=== PATIENT | male | born 1930 | race Caucasian/White ===

== ENCOUNTER 2016-12-19 20:00 | Inpatient (IN) ==
--- OUTSIDE RECORDS SUMMARY | 2016-12-19 20:08 | External Medical Summary ---
:1932 Author Organization [employer] Care Team Providers Name Role Phone Fab Vasquez Provider Role Unavailable Allergies No Known Allergies Problems Problem Type Condition Code Onset Dates Condition Status Problem Chronic pain syndrome G89.4 Active Problem Degenerative disc disease, lumbar M51.36 Active Problem Carotid stenosis, left I65.22 Active Problem Intermittent claudication 443.9 Active Medications No Known Medications Results No Known Results Summary Purpose eClinicalWorks Submission
--- OUTSIDE RECORDS SUMMARY | 2016-12-19 20:08 | External Medical Summary ---
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 302712367 prostatic hyperplasia with lower urinary tract symptoms Problem Degenerative disc M51.36 Active 26373025 disease, lumbar Problem Chronic pain G89.4 Active 233489396 syndrome Problem Carotid stenosis, I65.22 Active 577546173164977 left Problem Primary localized M16.10 Active 949635122 osteoarthrosis, pelvic region and thigh Problem 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 949354491 osteoarthritis of both lower legs Problem Anxiety F41.9 Active 94419944 Problem Lumbago with M54.41 Active 948905398 sciatica, right side Problem 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 Active 126007431 use of anticoagulant therapy Problem Seizure disorder G40.909 Active 426271700 ALLERGIES Substance Reaction Event Type Date Status losartan Unknown Drug Allergy Nov, Active lisinopril Unknown Drug Allergy Nov, Active morphine Unknown Drug Allergy Nov, Active sulfamethoxazole Unknown Drug Allergy Nov, Active Lipitor muscle weakness Drug Allergy Nov, Active SOCIAL HISTORY Never Assessed PLAN OF CARE Activity Details Follow Up 4 Weeks Reason: Pending Test Culture: Urine Pending Test X ray : Chest-PA/LAT Pending Test EKG-[facility] VITAL SIGNS Temperature 97.7 degrees Fahrenheit 2016-11-24 Weight 143.7 lbs 2016-11-24 Height 68 in 2016-11-24 BMI 21.85 kg/m2 2016-11-24 Blood pressure systolic 112 mm Hg 2016-11-24 Blood pressure diastolic 70 mm Hg 2016-11-24 MEDICATIONS Medication Instructions Dosage Frequency Start End Date Duration Status Date terazosin 2 mg orally once a 1 cap(s) Active day (at bedtime) Vitamin D3 5000 orally once a 1 cap(s) 24h Active intl units day [place] 325 mg-10 orally every 4 1 tab(s) 4h Nov, days Active mg hours 2016 Flexeril 10 mg orally three 1 tab(s) Active times a day prn loratadine 10 mg orally once a 1 tab(s) 24h 90 days Active day Aspir 81 81 mg orally once a 1 tab(s) 24h Active day omeprazole 20 mg orally once a 1 cap(s) 24h Active day finasteride 5 mg orally once a 1 tab(s) 24h Active day Vimpat 100 mg orally 2 times a 1 tab(s) 12h Active day Plavix 75 mg orally 1 tab(s) Active everyother day lutein 20 mg orally once a 1 cap(s) 24h Active day fluticasone 50 inhaled 2 times 1 puff(s) 12h Active mcg a day RESULTS No Results PROCEDURES Procedure Date Ordered Result Body Site Automated Hemogram-CBC w/Diff Nov 24, 2016 Comprehensive Metabolic Panel Nov 24, 2016 X-Ray Chest Nov 24, 2016 Urinalysis, Auto, w/o Scope Nov 24, 2016 Urine Culture/[place] Count Nov 24, 2016 Electrocardiogram, Complete Nov 24, 2016 IMMUNIZATIONS No Known Immunizations MEDICAL (GENERAL) HISTORY Type Description Date Medical History RHC/mammo/07/20 Surgical History colonoscopy 2 polypectomy repeat in 202111/28/[address] with spot on lungs and repeat CT in 1 year 2012 Surgical History left knee replaced 2007 Surgical History right knee replaced 2009
--- OUTSIDE RECORDS SUMMARY | 2016-12-19 20:08 | External Medical Summary ---
:1932 Author Organization [facility] Spec Address [address] [place] [address] Care Team Providers Name Role Phone Fab Vasquez Unavailable Unavailable PROBLEMS Type Condition ICD9-CM [id number] Onset Condition SNOMED Code Code Code Dates Status Assessment Infective N34.2 Feb, Active 985957720 urethritis 2016 Problem Chronic pain G89.4 Active 155647231 syndrome Problem Degenerative M51.36 Active 59044493 disc disease, lumbar Problem Anxiety F41.9 Active 76390209 Problem Lumbago with M54.41 Active 521280709 sciatica, right side Problem Impaired gait R26.89 Active 54688655 and mobility Problem Carotid I65.22 Active 834358092971430 stenosis, left Problem Other chronic G89.29 Active 86289416 pain Problem Benign N40.1 Active 803996565 non-nodular prostatic hyperplasia with lower urinary tract symptoms ALLERGIES Substance Reaction Event Type Date Status losartan Unknown Drug Allergy Feb, Active lisinopril Unknown Drug Allergy Feb, Active morphine Unknown Drug Allergy Feb, Active sulfamethoxazole Unknown Drug Allergy Feb, Active Lipitor muscle weakness Drug Allergy Feb, Active SOCIAL HISTORY No smoking Hx information available PLAN OF CARE VITAL SIGNS Temperature 97.5 degrees Fahrenheit 2016-02-25 Weight 141.4 lbs 2016-02-25 Height 68 in 2016-02-25 BMI 21.50 kg/m2 2016-02-25 Oximetry 93% RA 2016-02-25 Blood pressure systolic 146 mm Hg 2016-02-25 Blood pressure diastolic 90 mm Hg 2016-02-25 MEDICATIONS Medication Instructions Dosage Frequency Start End Date Duration Status Date [place] 325 mg-10 orally every 6 2 tab(s) 6h Active mg hours finasteride 5 mg orally once a 1 tab(s) 24h Active day atorvastatin 10 orally once a 1 tab(s) Active mg day (at bedtime) amlodipine 2.5 orally once a 1 tab(s) 24h Active mg day loratadine 10 mg orally once a 1 tab(s) 24h Active day fish oil OTC orally 2 times a 2 cap(s) 12h Active ethyl esters day 1000 mg Vitamin D3 5000 orally once a 1 cap(s) 24h Active intl units day Plavix 75 mg orally 1 tab(s) Active everyother day magnesium 250mg Active Potassium Active Chlorate, 500 g cefdinir 300 mg orally every 12 1 cap(s) 12h Feb, day(s) Active hours 2015 Aspir 81 81 mg orally once a 1 tab(s) 24h Active day Flexeril 10 mg orally three 1 tab(s) Active times a day prn omeprazole 20 mg orally once a 1 cap(s) 24h Active day terazosin 2 mg orally once a 1 cap(s) Active day (at bedtime) RESULTS No Results PROCEDURES Procedure Date Ordered Related Diagnosis Body Site Office/Outpatient Visit-Est Feb 25, 2016 IMMUNIZATIONS No Known Immunizations
--- OUTSIDE RECORDS SUMMARY | 2016-12-19 20:08 | External Medical Summary ---
:1932 Author Organization eClinicalWorks Care Team Providers Name Role Phone Fab Vasquez Provider Role Unavailable Allergies, Adverse Reactions, Alerts Substance Reaction Event Type Lipitor muscle weakness Drug Allergy Problems Problem Type Condition Code Onset Dates Condition Status Assessment Impaired gait and mobility R26.89 Active Assessment Right lumbosacral radiculopathy M54.17 Active Assessment Post-op pain G89.18 Active Problem Carotid stenosis, left I65.22 Active Problem Chronic pain syndrome G89.4 Active Problem Impaired gait and mobility R26.89 Active Assessment Spinal stenosis of lumbar region M48.06 Active Assessment Encounter for immunization Z23 Active Problem Degenerative disc disease, lumbar M51.36 Active Assessment Urinary frequency R35.0 Active Medications Medication Code System Code Instructions Start Date End Date Status Dosage [place] [address] 325 mg-10 mg orally 2 tab(s) every 6 hours Flexeril NDC 0 10 mg orally three 1 tab(s) times a day prn Procedures Procedure Coding System Code Date Flu Shot-Adult CPT-4 35485 Dec 16, 2015 Immunization Admin CPT-4 69703 Dec 16, 2015 Urinalysis, Auto, w/o Scope CPT-4 14062 Dec 16, 2015 Office/Outpatient Visit-Est CPT-4 23729 Dec 16, 2015 Vital Signs Date/Time: Dec 16, 2015 Temperature 98.4 F Blood Pressure Diastolic 68 mm Hg Blood Pressure Systolic 100 mm Hg BMI 24.39 Index Height 68 in Weight 160.4 lbs Pulse 106 /min Results Name Result Date Reference Range Unit Abnormality Flag Urinalysis Dip Only ----PROTEIN NEGATIVE 75585220 NEGATIVE ----BLOOD TRACE-INTACT [id number] NEGATIVE A ----KETONE NEGATIVE 97468779 NEGATIVE ----BILIRUBIN NEGATIVE 30296058 NEGATIVE ----GLUCOSE NEGATIVE 21381852 NEGATIVE ----LEUKOCYTES NEGATIVE [id number] NEGATIVE ----COLOR Yellow 67799362 ----NITRITE NEGATIVE 12131198 NEGATIVE ----APPEARANCE Clear [id number] CLEAR ----SPECIFIC GRAVITY 1.010 20151216 1.003 - 1.030 ----UROBILINOGEN 0.2 E.U./dL 20151216 0.2 - 1.0 ----PH 6.0 20151216 4.5 - 8.0 > UA MICROSCOPIC ----BACTERIA NONE SEEN 20151216 ----URBC None Seen 20151216 ----SQ. EPITHELIAL CELLS 0-3 / LPF 20151216 A ----UWBC 0-3 / HPF 20151216 Immunizations Vaccine Administration Date Flu Shot-Adult Dec 16, 2015 Summary Purpose eClinicalWorks Submission
--- OUTSIDE RECORDS SUMMARY | 2016-12-19 20:09 | External Medical Summary ---
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 Problem Intermittent claudication 443.9 Active Medications Medication Code Code Instructions Start End Date Status Dosage System Date omeprazole NDC 19729 20 mg orally 1 cap(s) once a day Aspirin Low Dose NDC 396301 81 mg orally 1 tab(s) once a day loratadine NDC 11691 10 mg orally Apr 30, 1 tab(s) once a day 2014 [place] NDC 24797 325 mg-10 mg Oct 21, 1 tab(s) orally every 12 2015 hours HCTZ NDC 58897 25 mg orally June 09, 03/07 pill once a day 2014 lutein NDC 546383 6 mg orally once 1 cap(s) a day amlodipine NDC 70629 2.5 mg orally 1 tab(s) once a day finasteride NDC 43894 5 mg orally once 1 tab(s) a day alprazolam NDC 05341 0.5 mg orally 1 Oct 14, 1 tab(s) times a day at 2013 HS potassium NDC 0 daily 1 gluconate terazosin NDC 11625 2MG orally once 1 cap(s) a day (at bedtime) Refresh Dry Eye NDC 547109 - in each eye 2 1 gtt Therapy times a day flunisolide NDC 54016 25 mcg/inh 2 puff(s) nasal intranasally 2 times a day magnesium NDC 0 250mg as directed Procedures Procedure Coding System Code Date Office/Outpatient Visit-Est CPT-4 93176 Feb 16, 2015 Vital Signs Date/Time: Feb 16, 2015 Temperature 98.1 F Blood Pressure Diastolic 66 mm Hg Blood Pressure Systolic 116 mm Hg BMI 22.99 Index Height 68 in Weight 151.2 lbs Pulse 56 /min Results No Known Results Summary Purpose eClinicalWorks Submission
--- OUTSIDE RECORDS SUMMARY | 2016-12-19 20:09 | External Medical Summary ---
:1932 Author Organization eClinicalWorks Care Team Providers Name Role Phone Fab Vasquez Provider Role Unavailable Allergies No Known Allergies Problems Problem Type Condition Code Onset Dates Condition Status Problem Intermittent claudication 443.9 Active Medications Medication Code System Code Instructions Start Date End Date Status Dosage alprazolam [facility] 26733 0.5 mg orally 1 Oct 14, 2013 1 tab(s) times a day at HS Results No Known Results Summary Purpose eClinicalWorks Submission
--- OUTSIDE RECORDS SUMMARY | 2016-12-19 20:09 | External Medical Summary ---
:1932 Author Organization [facility] Spec Address [address] [place] [address] Care Team Providers Name Role Phone Fab Vasquez Unavailable Unavailable PROBLEMS Type Condition ICD9-CM [id number] Onset Condition SNOMED Code Code Code Dates Status Problem Degenerative M51.36 Active 02394929 disc disease, lumbar Problem Carotid I65.22 Active 909927037226118 stenosis, left Problem Chronic pain G89.4 Active 877178753 syndrome Problem Seizure disorder G40.909 Active 111557465 Problem Anxiety F41.9 Active 50615405 Problem Benign N40.1 Active 577343566 non-nodular prostatic hyperplasia with lower urinary tract symptoms Problem Impaired gait R26.89 Active 83318333 and mobility Problem Lumbago with M54.41 Active 950742828 sciatica, right side Problem Other chronic G89.29 Active 73125275 pain ALLERGIES Unknown Allergies SOCIAL HISTORY No smoking Hx information available PLAN OF CARE VITAL SIGNS MEDICATIONS Unknown Medications RESULTS No Results PROCEDURES No Known procedures IMMUNIZATIONS No Known Immunizations
--- OUTSIDE RECORDS SUMMARY | 2016-12-19 20:09 | External Medical Summary ---
:1932 Author Organization [facility] Spec Address [address] [place] [address] Care Team Providers Name Role Phone Fab Vasquez Unavailable Unavailable PROBLEMS Type Condition ICD9-CM [id number] Onset Condition SNOMED Code Code Code Dates Status Problem Impaired gait and R26.89 Active 97997883 mobility Problem Other chronic pain G89.29 Active 47369332 Problem Benign non-nodular N40.1 Active 236477919 prostatic hyperplasia with lower urinary tract symptoms Problem Degenerative disc M51.36 Active 78245652 disease, lumbar Problem Chronic pain G89.4 Active 411476681 syndrome Problem Carotid stenosis, I65.22 Active 856011456641532 left Problem Primary localized M16.10 Active 184493723 osteoarthrosis, pelvic region and thigh Problem 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 114156445 osteoarthritis of both lower legs Problem Anxiety F41.9 Active 75782263 Problem Lumbago with M54.41 Active 118619929 sciatica, right side Problem 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 Active 739945040 use of anticoagulant therapy Problem Seizure disorder G40.909 Active 578372682 ALLERGIES No Information SOCIAL HISTORY Never Assessed PLAN OF CARE VITAL SIGNS MEDICATIONS Medication Instructions Dosage Frequency Start End Date Duration Status Date cefdinir 300 mg orally every 12 1 cap(s) 12h 25 Sep, 10 day(s) Active hours 2016 RESULTS No Results PROCEDURES No Known procedures IMMUNIZATIONS No Known Immunizations MEDICAL (GENERAL) HISTORY Type Description Date Medical History RHC/mammo/07/20 Surgical History colonoscopy 2 polypectomy repeat in 202111/28/[address] with spot on lungs and repeat CT in 1 year 2012 Surgical History left knee replaced 2007 Surgical History right knee replaced 2009
--- OUTSIDE RECORDS SUMMARY | 2016-12-19 20:09 | External Medical Summary ---
:1932 Author Organization [facility] Address [address] [place] [address] Care Team Providers Name Role Phone Marco A Laura Unavailable Unavailable PROBLEMS Type Condition ICD9-CM [id number] Onset Condition SNOMED Code Code Code Dates Status Problem Hypertension I10 Active 42868964 Problem S/P drug eluting Z95.5 Active 328628905 coronary stent placement Problem Jeff-tachy I49.5 Active 42928829 syndrome Problem Venous 459.81 Active 32588309 Insufficiency Problem Bradycardia 427.89 Active 87292390 Problem Dyslipidemia E78.4 Active 008835379 (high LDL; low HDL) Problem nursing home Z79.02 Active 686917157577081 (current) use of antithrombotics/a ntiplatelets Problem Long-term use of Z79.82 Active 048497341479735 aspirin therapy Problem Presence of Z95.0 Active 857044579 cardiac pacemaker Problem CAD (coronary I25.10 Active 86439544 artery disease) Problem Carotid disease, I77.9 Active 776946425 bilateral Problem History of CEA Z98.89 Active (carotid endarterectomy) ALLERGIES Unknown Allergies SOCIAL HISTORY No smoking Hx information available PLAN OF CARE VITAL SIGNS MEDICATIONS Unknown Medications RESULTS No Results PROCEDURES No Known procedures IMMUNIZATIONS No Known Immunizations
--- OUTSIDE RECORDS SUMMARY | 2016-12-19 20:09 | External Medical Summary ---
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
--- OUTSIDE RECORDS SUMMARY | 2016-12-19 20:09 | External Medical Summary ---
:1932 Author Organization [employer]ClinicalWorks Care Team Providers Name Role Phone Fab Vasquez Provider Role Unavailable Allergies No Known Allergies Problems Problem Type Condition Code Onset Dates Condition Status Problem Impaired gait and mobility R26.89 Active Problem Carotid stenosis, left I65.22 Active Problem Benign non-nodular prostatic N40.1 Active hyperplasia with lower urinary tract symptoms Problem Chronic pain syndrome G89.4 Active Problem Degenerative disc disease, lumbar M51.36 Active Medications No Known Medications Results No Known Results Summary Purpose eClinicalWorks Submission
--- OUTSIDE RECORDS SUMMARY | 2016-12-19 20:09 | External Medical Summary ---
:1932 Author Organization eClinicalWorks Care Team Providers Name Role Phone Fab Vasquez Provider Role Unavailable Allergies No Known Allergies Problems Problem Type Condition ICD-9 Code Onset Dates Condition Status Problem Intermittent claudication 443.9 Active Medications No Known Medications Results No Known Results Summary Purpose eClinicalWorks Submission
--- OUTSIDE RECORDS SUMMARY | 2016-12-19 20:09 | External Medical Summary ---
:1932 Author Organization [facility] Spec Address [address] [place] [address] Care Team Providers Name Role Phone Fab Vasquez Unavailable Unavailable PROBLEMS Type Condition ICD9-CM [id number] Onset Condition SNOMED Code Code Code Dates Status Problem Degenerative M51.36 Active 57139262 disc disease, lumbar Problem Carotid I65.22 Active 027602152051463 stenosis, left Problem Chronic pain G89.4 Active 295502498 syndrome Problem Seizure disorder G40.909 Active 945261158 Problem Anxiety F41.9 Active 28549362 Problem Benign N40.1 Active 162817662 non-nodular prostatic hyperplasia with lower urinary tract symptoms Problem Impaired gait R26.89 Active 93426926 and mobility Problem Lumbago with M54.41 Active 519168544 sciatica, right side Problem Other chronic G89.29 Active 64449418 pain ALLERGIES Substance Reaction Event Type Date Status losartan Unknown Drug Allergy Aug, Active lisinopril Unknown Drug Allergy Aug, Active morphine Unknown Drug Allergy Aug, Active sulfamethoxazole Unknown Drug Allergy Aug, Active Lipitor muscle weakness Drug Allergy Aug, Active SOCIAL HISTORY No smoking Hx information available PLAN OF CARE Activity Details Follow Up 3 Months Reason:null VITAL SIGNS Temperature 98.4 degrees Fahrenheit 2016-08-04 Weight 151.9 lbs 2016-08-04 Height 68 in 2016-08-04 BMI 23.09 kg/m2 2016-08-04 Blood pressure systolic 108 mm Hg 2016-08-04 Blood pressure diastolic 60 mm Hg 2016-08-04 MEDICATIONS Medication Instructions Dosage Frequency Start End Date Duration Status Date Aspir 81 81 mg orally once a 1 tab(s) 24h Active day finasteride 5 mg orally once a 1 tab(s) 24h Active day Plavix 75 mg orally 1 tab(s) Active everyother day atorvastatin 10 orally once a 1 tab(s) Active mg day (at bedtime) magnesium 250mg Active Keppra 500 mg orally 2 times a 1 tab(s) 12h 24 July, Active day 2016 loratadine 10 mg orally once a 1 tab(s) 24h 90 days Active day fish oil OTC orally 2 times a 2 cap(s) 12h Active ethyl esters 1000 day mg Vitamin D3 5000 orally once a 1 cap(s) 24h Active intl units day Potassium Active Chlorate, 500 g [place] 325 mg-10 orally every 6 2 tab(s) 6h Active mg hours omeprazole 20 mg orally once a 1 cap(s) 24h Active day Flexeril 10 mg orally three 1 tab(s) Active times a day prn terazosin 2 mg orally once a 1 cap(s) Active day (at bedtime) amlodipine 2.5 mg orally once a 1 tab(s) 24h Active day Ativan 1 mg orally 1 times a 1 tab(s) Nov, 15 days Active day at HS 2016 RESULTS No Results PROCEDURES Procedure Date Ordered Related Diagnosis Body Site Office/Outpatient Visit-Est August 04, 2016 IMMUNIZATIONS No Known Immunizations
--- OUTSIDE RECORDS SUMMARY | 2016-12-19 20:09 | External Medical Summary ---
:1932 Author Organization [facility] Care Team Providers Name Role Phone Marco [...] Medications Results No Known Results Summary Purpose [facility] Submission
--- OUTSIDE RECORDS SUMMARY | 2016-12-19 20:09 | External Medical Summary ---
[...] I65.22 Active Problem Intermittent claudication 443.9 Active Assessment Spinal stenosis of lumbosacral M48.07 Active region Medications Medication Code Code Instructions Start End Date Status Dosage System Date Percocet-10/325 NDC 66197 325 mg-10 mg September 15 tab(s) orally every 6 2015 hours atorvastatin NDC 73657 20 mg orally September 10, /2 tab(s) once a day (at 2016 bedtime) amlodipine NDC 50125 2.5 mg orally 1 tab(s) once a day donepezil-memant NDC 277314 10 mg-28 mg 1 cap(s) ine orally once a day omeprazole NDC 62813 20 mg orally 1 cap(s) once a day terazosin NDC 05446 2MG orally once 1 cap(s) a day (at bedtime) alprazolam NDC 04087 0.5 mg orally August 03, tab(s) BID 2015 finasteride NDC 57650 5 mg orally once 1 tab(s) a day magnesium NDC 0 250mg as directed Fish Oil NDC 19997 500 mg orally 2 2 cap(s) times a day Refresh Dry Eye NDC 906502 - in each eye 2 1 gtt Therapy times a day flunisolide NDC 71610 25 mcg/inh 2 puff(s) nasal intranasally 2 times a day Requip XL NDC 612628 1 mg orally one July 19 tab(s) in the am and 2015 at night [place] Blue NDC 27678 1% applied July 20 lanie Balanced topically 2 2015 Treatment times a week Aspirin Low Dose NDC 865919 81 mg orally 1 tab(s) once a day potassium NDC 0 daily 1 gluconate loratadine NDC 12515 10 mg orally Apr 30, 1 tab(s) once a day 2014 lutein NDC 551289 6 mg orally once 1 cap(s) a day Procedures Procedure Coding System Code Date Office/Outpatient Visit-Est CPT-4 94741 September 16, 2015 Vital Signs Date/Time: September 16, 2015 Temperature 98.3 F Blood Pressure Diastolic 74 mm Hg Blood Pressure Systolic 126 mm Hg BMI 23.63 Index Height 68 in Weight 155.4 lbs Pulse 94 /min Results No Known Results Summary Purpose eClinicalWorks Submission
--- OUTSIDE RECORDS SUMMARY | 2016-12-19 20:09 | External Medical Summary ---
:1932 Author Organization [facility] Address [address] [place] [address] Care Team Providers Name Role Phone Marco A Laura Unavailable Unavailable PROBLEMS Type Condition ICD9-CM [id number] Onset Condition SNOMED Code Code Code Dates Status Problem Hypertension I10 Active 93871256 Problem S/P drug eluting Z95.5 Active 019897503 coronary stent placement Problem Jeff-tachy I49.5 Active 64836440 syndrome Problem Venous 459.81 Active 23443965 Insufficiency Problem Bradycardia 427.89 Active 94740995 Problem Dyslipidemia E78.4 Active 844335077 (high LDL; low HDL) Problem [facility] Z79.02 Active 034351508645914 (current) use of antithrombotics/a ntiplatelets Problem Long-term use of Z79.82 Active 263143526039473 aspirin therapy Problem Presence of Z95.0 Active 308455585 cardiac pacemaker Problem CAD (coronary I25.10 Active 74530582 artery disease) Problem Carotid disease, I77.9 Active 654145603 bilateral Problem History of CEA Z98.89 Active (carotid endarterectomy) ALLERGIES Unknown Allergies SOCIAL HISTORY No smoking Hx information available PLAN OF CARE VITAL SIGNS MEDICATIONS Unknown Medications RESULTS No Results PROCEDURES No Known procedures IMMUNIZATIONS No Known Immunizations
--- OUTSIDE RECORDS SUMMARY | 2016-12-19 20:09 | External Medical Summary ---
:1932 Author Organization [facility] Address [address] [place] [address] Care Team Providers Name Role Phone Fab Vasquez Unavailable Unavailable PROBLEMS Type Condition ICD9-CM EIN38-NU Onset Condition SNOMED Code Code Code Dates Status Problem Impaired gait and R26.89 Active 38096956 mobility Problem Other chronic pain G89.29 Active 86860904 Problem Benign non-nodular N40.1 Active 405800002 prostatic hyperplasia with lower urinary tract symptoms Problem Degenerative disc M51.36 Active 14426762 disease, lumbar Problem Chronic pain G89.4 Active 839831201 syndrome Problem Carotid stenosis, I65.22 Active 404529386338582 left Problem 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
--- OUTSIDE RECORDS SUMMARY | 2016-12-19 20:09 | External Medical Summary ---
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 59286048 syndrome Problem Venous 459.81 Active 21736406 Insufficiency Problem Bradycardia 427.89 Active 69375932 Problem Dyslipidemia E78.4 Active 252361088 (high LDL; low HDL) 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
--- OUTSIDE RECORDS SUMMARY | 2016-12-19 20:09 | External Medical Summary ---
:1932 Author Organization eClinical[employer] Care Team Providers Name Role Phone Fab Vasquez Provider Role Unavailable Allergies No Known Allergies Problems No Known Problems Medications No Known Medications Results No Known Results Summary Purpose eClinicalWorks Submission
--- OUTSIDE RECORDS SUMMARY | 2016-12-19 20:09 | External Medical Summary ---
:1932 Author Organization [facility] Address [address] [place] [address] Care Team Providers Name Role Phone Fab Vasquez Unavailable Unavailable PROBLEMS Type Condition ICD9-CM [id number] Onset Condition SNOMED Code Code Code Dates Status Problem Degenerative M51.36 Active 31612403 disc disease, lumbar Problem Carotid I65.22 Active 437472195041892 stenosis, left Problem Chronic pain G89.4 Active 129610288 syndrome Problem Seizure disorder G40.909 Active 660409659 Problem Anxiety F41.9 Active 30458012 Problem Benign N40.1 Active 228366744 non-nodular prostatic hyperplasia with lower urinary tract symptoms Problem Impaired gait R26.89 Active 64810995 and mobility Problem Lumbago with M54.41 Active 799993316 sciatica, right side Problem Other chronic G89.29 Active 85828062 pain ALLERGIES Unknown Allergies SOCIAL HISTORY No smoking Hx information available PLAN OF CARE VITAL SIGNS MEDICATIONS Unknown Medications RESULTS No Results PROCEDURES No Known procedures IMMUNIZATIONS No Known Immunizations
--- OUTSIDE RECORDS SUMMARY | 2016-12-19 20:09 | External Medical Summary ---
:1932 Author Organization eClinicalWorks Care Team Providers Name Role Phone Fab Vasquez Provider Role Unavailable Allergies, Adverse Reactions, Alerts Substance Reaction Event Type Lipitor muscle weakness Drug Allergy Problems Problem Type Condition Code Onset Dates Condition Status Problem Chronic pain syndrome G89.4 Active Problem Degenerative disc disease, lumbar M51.36 Active Problem Carotid stenosis, left I65.22 Active Assessment Carotid stenosis, left I65.22 Active Assessment Lumbar stenosis M48.06 Active Problem Intermittent claudication 443.9 Active Assessment Jeff-tachy syndrome I49.5 Active Medications Medication Code Code Instructions Start End Date Status Dosage System Date Namenda XR NDC 353852 21 mg orally once May 05, 1 cap(s) a day 2015 Aricept NDC 6432 23 mg orally once May 27, 1 tab(s) a day (at 2016 bedtime) hydroxyzine NDC 60585 hydrochloride May 05, 1 tab(s) mg orally 4 times 2015 a day terazosin NDC 89720 2MG orally once a 1 cap(s) day (at bedtime) amlodipine NDC 68124 2.5 mg orally 1 tab(s) once a day Fish Oil NDC 44301 500 mg orally 2 2 cap(s) times a day Aspirin Low Dose NDC 469097 81 mg orally once 1 tab(s) a day loratadine NDC 48489 10MG orally once 1 tab(s) a day Percocet-10/325 NDC 03285 325 mg-10 mg June 18 tab(s) orally every 6 2015 hours magnesium NDC 0 250mg as directed finasteride NDC 40834 5 mg orally once 1 tab(s) a day Crestor NDC 49339 5 mg orally once 1 tab(s) a day (at bedtime) potassium NDC 0 daily 1 gluconate omeprazole NDC 62563 20 mg orally once 1 cap(s) a day lutein NDC 818684 6 mg orally once 1 cap(s) a day fentanyl NDC 05950 12 mcg/hr applied June 07, 1 PATCH topically every 2015 72 hours flunisolide NDC 82068 25 mcg/inh 2 puff(s) nasal intranasally 2 times a day loratadine NDC 57086 10 mg orally once Apr 30, 1 tab(s) a day 2014 atorvastatin NDC 32611 20 mg orally once May 27, 1 tab(s) a day (at 2016 bedtime) HCTZ NDC 59881 25 mg orally once June 09, 1/2 pill a day 2014 Refresh Dry Eye ND 502973 - in each eye 2 1 gtt Therapy times a day Procedures Procedure Coding System Code Date Office/Outpatient Visit-Est CPT-4 65160 June 19, 2015 Vital Signs Date/Time: June 19, 2015 Temperature 97.9 F Blood Pressure Diastolic 78 mm Hg Blood Pressure Systolic 112 mm Hg BMI 24.33 Index Height 68 in Weight 160.0 lbs Pulse 72 /min Results No Known Results Summary Purpose eClinicalWorks Submission
--- OUTSIDE RECORDS SUMMARY | 2016-12-19 20:09 | External Medical Summary ---
:1932 Author Organization [employer]Clinical[employer] Care Team Providers Name Role Phone Fab Vasquez Provider Role Unavailable Allergies No Known Allergies Problems No Known Problems Medications Medication Code System Code Instructions Start Date End Date Status Dosage alprazolam [facility] 70520 0.5 mg orally 1 Oct 14, 2013 Active 1 tab(s) times a day at HS Results No Known Results Summary Purpose eClinicalWorks Submission
--- OUTSIDE RECORDS SUMMARY | 2016-12-19 20:09 | External Medical Summary ---
:1932 Author Organization eClinicalWorks Care Team Providers Name Role Phone Marco A Laura Provider Role Unavailable Allergies No Known Allergies Problems Problem Type Condition Code Onset Dates Condition Status Problem Venous Insufficiency 459.81 Active Problem Dyslipidemia (high LDL; low HDL) E78.4 Active Problem Bradycardia 427.89 Active Problem History of CEA (carotid Z98.89 Active endarterectomy) Problem Presence of cardiac pacemaker Z95.0 Active Problem Carotid disease, bilateral I77.9 Active Problem Jeff-tachy syndrome I49.5 Active Problem Hypertension I10 Active Problem CAD (coronary artery disease) I25.10 Active Problem S/P drug eluting coronary stent Z95.5 Active placement Medications No Known Medications Results No Known Results Summary Purpose eClinicalWorks Submission
--- OUTSIDE RECORDS SUMMARY | 2016-12-19 20:09 | External Medical Summary | Summary of Care ---
:1932 Author Name Lakhwinder Jane M.D. Address [address] [place] [address] [place] [address] Care Team Providers Name Role Phone Lakhwinder Jane M.D. Unavailable Unavailable Fab Vasquez Unavailable Unavailable Functional Status Functional Status Health Issues Name Dates Details Functional status health issues are not documented Status: Cognitive Status Health Issues Name Dates Details Cognitive status health issues are not documented Status: Problems Name Dates Details Urinary retention (788.20, R33.9) Status: Active Benign prostatic hyperplasia with urinary obstruction and other lower urinary tract symptoms (600.21, N40.1) Status: Active Shingles (053.9, B02.9) Status: Active Medications Name Dates Details Loratadine 10 MG Oral Tablet TAKE 1 TABLET DAILY. Refills: 0 Cho M.D., [facility] 01-Jan-2016 Active Lutein 10 MG Oral Tablet Take 1 tablet daily Refills: 0 Cho M.D., [facility] 01-Jan-2016 Active Nitroglycerin 0.4 MG Sublingual Tablet Sublingual DISSOLVE 1 TABLET UNDER THE TONGUE NEEDED FOR CHEST PAIN. Refills: 0 Cho M.D., [facility] 01-Jan-2016 Active Omeprazole 10 MG Oral Capsule Delayed Release take one capsule before breakfast Refills: 0 Cho M.D., [facility] 01-Jan-2016 Active ROPINIRole HCl - 1 MG Oral Tablet TAKE 1 TABLET AT BEDTIME. Refills: 0 Cho M.D., [facility] 01-Jan-2016 Active Sennosides-Docusate Sodium 8.6-50 MG Oral Tablet TAKE 1 TABLET TWICE DAILY. Refills: 0 Cho M.D., [facility] 01-Jan-2016 Active Plavix 75 MG Oral Tablet TAKE 1 TABLET DAILY. Refills: 0 Cho M.D., [facility] 01-Jan-2016 Active Cyclobenzaprine HCl - 5 MG Oral Tablet Take one tablet PRN Refills: 0 Cho M.D., [facility] 01-Jan-2016 Active Finasteride 5 MG Oral Tablet TAKE 1 TABLET Bedtime Refills: 0 Cho M.D., [facility] 01-Jan-2016 Active Flonase Allergy Relief 50 MCG/ACT Nasal Suspension USE 1 TO 2 SPRAYS IN EACH NOSTRIL PRN Refills: 0 Cho M.D., [facility] 01-Jan-2016 Active Artificial Tears 1.4 % Ophthalmic Solution Refills: 0 Cho M.D., [facility] 01-Jan-2016 Active Probiotic Oral Capsule 1 TABLET ORAL DAILY Refills: 0 Cho M.D., [facility] 01-Jan-2016 Active AmLODIPine Besylate 2.5 MG Oral Tablet TAKE 1 TABLET DAILY. Refills: 0 Cho M.D., [facility] Start 01-Jan-2016 Active Aspirin Adult Low Dose 81 MG Oral Tablet Delayed Release TAKE 1 TABLET DAILY. Refills: 0 Cho M.D., [facility] Start 01-Jan-2016 Active Atorvastatin Calcium 10 MG Oral Tablet TAKE 1 TABLET AT BEDTIME. Refills: 0 Cho M.D., [facility] Start 01-Jan-2016 Active Vitamin D3 1000 UNIT Oral Capsule Take 5 tablets daily Refills: 0 Cho M.D., [facility] Start 01-Jan-2016 Active Allergies and Adverse Reactions Name Dates Details Bactrim DS TABS (Allergy) Status: Active lisinopril (Allergy) Status: Active losartan (Allergy) Status: Active morphine (Allergy) Status: Active Trimethoprim TABS (Allergy) Status: Active Procedures Procedure Dates Details History of Post Spinal Diskect Osteophytect Lumb Interspace Microdiscec Procedures not documented Immunization Name Dates Details Immunizations not documented Family History Brother Name Dates Details Family history of Kidney cancer, primary, with metastasis from kidney to other site (189.0, C64.9) Status: Active Social History Name Dates Details - Status: Smoking Status Name Dates Details Former smoker Vital Signs Date Test Result Details 01-Jan-2016 11:17 BP Systolic 130 mm[Hg] Status: Comments: Location: ; Position: BP Diastolic 69 mm[Hg] Status: Comments: Location: ; Position: Heart Rate 82 /min Status: Comments: Location: ; Height 70.5 in Status: Weight 162 lb Status: Body Mass Index Calculated 22.92 kg/m2 Status: Body Surface Area Calculated 1.92 m2 Status: Results Date Description Value Details 04-Jan-2016 13:09 URINE CULTURE [id number] Comments: [facility]: [place] [place], [address], Document Reviewer: Lakhwinder Boland D.O., MPHQuest Collection Date/Time: [id number] Results Received Date/Time: [id number] Reported Date /Time: [id number] performed at: [facility] [place], [address] [facility], [place], [address], Document Reviewer: Lakhwinder Boland D.O., MPHQuest Collection Date/Time: [id number] Results Received Date/Time: [id number] Reported Date/Time: [id number] CULTURE, URINE, ROUTINE SEE NOTE (Abnormal) Comments: CULTURE, URINE, ROUTINE MICRO NUMBER: [id number] TEST STATUS: FINAL SPECIMEN SOURCE : URINE, CATHETER SPECIMEN QUALITY: ADEQUATE RESULT: Greater than 100,000 CFU/mL of Coagulase negative staphylococcus, not S. saprophyticus Coag.neg.staph. IN T LISA CIPROFLOXACIN S <=0.5 GENTAMICIN S <=0.5 LEVOFLOXACIN S <=0.12 MOXIFLOXACIN S <=0.25 NITROFURANTOIN S & lt;=16 OXACILLIN S <=0.25 1 TETRACYCLINE S <=1 TRIMETHOPRIM/SULFA S <=10 VANCOMYCIN S 1S=Susceptible I=Intermediate R=[place] t *=Not TestedNR=Not Reported NN=See Therapy CommentsTHERAPY COMMENTS Note 1: Oxacillin-susceptible staphylococci are susceptible to other penicillinase-stable penicillins (e.g. Methicil unruly, Nafcillin), beta- lactam/beta-lactamase inhibitor combinations, and cephems with staphylococcal indications, including Cefazolin.[KS]----- Plan of Care Name Dates Details Planned Observations Planned Goals not documented Planned Encounters Appointment; Provider: Lakhwinder Jane M.D. On 03-Feb-2016 14:00 Instructions Name Dates Details Instructions not documented Encounters Appointment; Lakhwinder Jane M.D. On 01-Jan-2016 Encounter Diagnosis: Problem not documented 11:15
--- OUTSIDE RECORDS SUMMARY | 2016-12-19 20:09 | External Medical Summary ---
:1932 Author Organization [facility] Address [address] [place] [address] Care Team Providers Name Role Phone Fab Vasquez Unavailable Unavailable PROBLEMS Type Condition ICD9-CM [id number] Onset Condition SNOMED Code Code Code Dates Status Assessment Coronary artery I25.10 Mar, Active 5196404989332 disease 2017 involving picayune coronary artery of pic[place]une heart without angina pectoris Problem Chronic pain G89.4 Active 406948232 syndrome Problem Degenerative M51.36 Active 78159430 disc disease, lumbar Problem Anxiety F41.9 Active 58507136 Problem Lumbago with M54.41 Active 903888353 sciatica, right side Problem Impaired gait R26.89 Active 19201890 and mobility Problem Carotid I65.22 Active 907593266150889 stenosis, left Problem Other chronic G89.29 Active 34793737 pain Problem Benign N40.1 Active 658286687 non-nodular prostatic hyperplasia with lower urinary tract symptoms ALLERGIES Unknown Allergies SOCIAL HISTORY No smoking Hx information available PLAN OF CARE VITAL SIGNS MEDICATIONS Medication Instructions Dosage Frequency Start Date End Date Duration Status Ativan 1 mg orally 1 times a 1 tab(s) 27 Nov, 15 days Active day at HS 2016 RESULTS No Results PROCEDURES No Known procedures IMMUNIZATIONS No Known Immunizations
--- OUTSIDE RECORDS SUMMARY | 2016-12-19 20:10 | External Medical Summary | Summary of Care ---
:1932 Author Name Lakhwinder Jane M.D. Address [address] [place] [address] [place] [address] Care Team Providers Name Role Phone Lakhwinder [...] urinary tract symptoms (600.21, N40.1) Status: Active Medications Name Dates Details Medication not documented Allergies and Adverse Reactions Name Dates Details Allergy history not documented Status: Procedures Procedure Dates Details Procedures not documented Immunization Name Dates Details Immunizations not documented Family History Brother Name Dates Details Family history of Kidney cancer, primary, with metastasis from kidney to other site (189.0, C64.9) Status: Active Social History Smoking Status Name Dates Details Unknown if ever smoked Vital Signs Date Test Result Details No Known Vitals to report Results Date Description Value Details Results not documented Plan of Care Name Dates Details Planned Observations Planned Goals not documented Planned Encounters Appointment; Provider: Lakhwinder Jane M.D. On 08-Jan-2016 08:30 Appointment; Provider: Lakhwinder Jane M.D. On 25-Dec-2015 16:15 Instructions Name Dates Details Instructions not documented Encounters Appointment; Lakhwinder Jane M.D. On 25-Dec-2015 Encounter Diagnosis: Problem not documented 16:15
--- OUTSIDE RECORDS SUMMARY | 2016-12-19 20:10 | External Medical Summary ---
:1932 Author Organization eClinicalWorks Care Team Providers Name Role Phone Fab Vasquez Provider Role Unavailable Allergies No Known Allergies Problems Problem Type Condition ICD-9 Code Onset Dates Condition Status Problem Intermittent claudication 443.9 Active Medications Medication Code System Code Instructions Start Date End Date Status Dosage alprazolam [facility] [address] 0.5 mg orally 1 Oct 14, 2013 1 tab(s) times a day at Results No Known Results Summary Purpose eClinicalWorks Submission
--- OUTSIDE RECORDS SUMMARY | 2016-12-19 20:10 | External Medical Summary ---
:1932 Author Organization eClinicalWorks Care Team Providers Name Role Phone Fab Vasquez Provider Role Unavailable Allergies, Adverse Reactions, Alerts Substance Reaction Event Type Lipitor muscle weakness Drug Allergy Problems Problem Type Condition ICD-9 Code Onset Dates Condition Status Assessment Left shoulder pain 719.41 Active Problem Intermittent claudication 443.9 Active Medications Medication Code Code Instructions Start End Date Status Dosage System Date [place] NDC 95070 325 mg-10 mg Oct 21, 1 tab(s) orally every 12 2014 hours Refresh Dry Eye NDC 983205 - in each eye 2 1 gtt Therapy times a day HCTZ NDC 76188 25 mg orally June 09, 03/07 pill once a day 2014 lutein NDC 224371 6 mg orally once 1 cap(s) a day Aspirin Low Dose NDC 183653 81 mg orally 1 tab(s) once a day flunisolide NDC 24132 25 mcg/inh 2 puff(s) nasal intranasally 2 times a day omeprazole NDC 46273 20 mg orally 1 cap(s) once a day finasteride NDC 79807 5 mg orally once 1 tab(s) a day potassium NDC 0 daily 1 gluconate magnesium NDC 0 250mg as directed amlodipine NDC 13370 2.5 mg orally 1 tab(s) once a day terazosin NDC 63233 2MG orally once 1 cap(s) a day (at bedtime) alprazolam NDC 58785 0.5 mg orally 1 Oct 14, 1 tab(s) times a day at 2014 HS loratadine NDC 82420 10 mg orally Apr 30, 1 tab(s) once a day 2014 Procedures Procedure Coding System Code Date Office/Outpatient Visit-Est CPT-4 54939 Oct 21, 2014 X-Ray Exam of Shoulder CPT-4 43867 Oct 21, 2014 Vital Signs Date/Time: Oct 21, 2014 Temperature 97.8 F Blood Pressure Diastolic 60 mm Hg Blood Pressure Systolic 100 mm Hg BMI 22.62 Index Height 68 in Weight 148.8 lbs Pulse 56 /min Results No Known Results Summary Purpose eClinicalWorks Submission
--- OUTSIDE RECORDS SUMMARY | 2016-12-19 20:10 | External Medical Summary ---
[...] Problem Carotid stenosis, left I65.22 Active Assessment Nocturia R35.1 Active Assessment Primary insomnia F51.01 Active Problem Intermittent claudication 443.9 Active Assessment Coronary artery disease involving I25.10 Active venetie ira coronary artery of [place] ir[place] heart without angina pectoris Medications Medication Code System Code Instructions Start Date End Date Status Dosage Ativan NDC 3795 1 mg orally 1 times Nov 30, 1 tab(s) a day at 2016 Procedures Procedure Coding System Code Date Automated Hemogram-CBC w/Diff CPT-4 09469 Dec 01, 2015 Prothrombin Time CPT-4 11396 Dec 01, 2015 Urinalysis, Auto, w/o Scope CPT-4 09769 Dec 01, 2015 Office/Outpatient Visit-Est CPT-4 09652 Dec 01, 2015 VENIPUNCT, ROUTINE* CPT-4 15939 Dec 01, 2015 Comprehensive Metabolic Panel CPT-4 46850 Dec 01, 2015 Thromboplastin Time, Partial CPT-4 35392 Dec 01, 2015 Electrocardiogram, Complete CPT-4 95736 Dec 01, 2015 X-Ray Chest CPT-4 54818 Dec 01, 2015 Vital Signs Date/Time: Dec 01, 2015 Temperature 97.2 F Blood Pressure Diastolic 68 mm Hg Blood Pressure Systolic 118 mm Hg BMI 23.26 Index Height 68 in Weight 153 lbs Pulse 72 /min Results Name Result Date Reference Range Unit Abnormality Flag PT AND PTT ----aPTT 28 20151201 24-33 sec ----INR 1.0 20151201 0.8-1.2 ----Prothrombin Time 10.4 20151201 9.1-12.0 sec CMP - Comp. Metabolic Panel (14) ----ALK. PHOSPHATASE 76 20151201 50-136 mg/dL ----GLUCOSE 98 09769869 74-108 mg/dL ----CARBON DIOXIDE 30 13316310 21-32 mmol/L ----A/G RATIO 1.2 36413616 1.1-2.5 CALC ----CREATININE 1.31 [id number] 0.60-1.30 mg/dL H ----GLOBULIN 3.2 22012899 1.5-4.5 g/dL ----BUN 24 20151201 7-18 mg/dL H ----ALBUMIN 3.8 59492718 3.4-5.0 g/dL ----SODIUM 142 96356870 136-145 mmol/L ----TOTAL BILIRUBIN 0.50 02019470 0.10-1.00 mg/dL ----AST (SGOT) 20 20151201 15-37 U/L ----CHLORIDE 104 70687210 98-107 mmol/L ----ALT (SGPT) 19 20151201 12-78 U/L ----POTASSIUM 4.0 24831030 3.5-5.1 mmol/L ----TOTAL PROTEIN 7.0 19695008 6.4-8.2 g/dL ----BUN/CREAT RATIO 18.3 00474106 12.0-20.0 CALC ----CALCIUM 9.2 44731908 8.5-10.1 mg/dL Urinalysis Dip Only ----PROTEIN NEGATIVE 20151201 NEGATIVE ----BLOOD TRACE-INTACT 20151201 NEGATIVE A ----KETONE NEGATIVE 20151201 NEGATIVE ----BILIRUBIN NEGATIVE 20151201 NEGATIVE ----GLUCOSE NEGATIVE 20151201 NEGATIVE ----LEUKOCYTES NEGATIVE 20151201 NEGATIVE ----COLOR Yellow 20151201 ----NITRITE NEGATIVE 20151201 NEGATIVE ----APPEARANCE Clear 20151201 CLEAR ----SPECIFIC GRAVITY 1.020 84476193 1.003 - 1.030 ----UROBILINOGEN 0.2 E.U./dL 52116207 0.2 - 1.0 ----PH 6.0 98610076 4.5 - 8.0 CBC With Differential/Platelet ----MCHC 32.9 70191510 31.8-35.4 g/dL ----MCH 29.8 20389496 27.0-31.2 PG ----PLT 215 20151201 142-424 x10^3/UL ----RDW 14.8 61963730 11.6-14.8 % ----HCT 36.2 20151201 43.5-53.7 % L ----MCV 90.5 20151201 80.0-97.0 fL ----RBC 4.00 98982741 4.69-6.13 x10^6/UL L ----HGB 11.9 20151201 13.5-18.1 g/dL L ----WBC 4.8 64225507 4.6-10.2 x10^3/UL > UA MICROSCOPIC ----BACTERIA NONE SEEN 20151201 ----SQ. EPITHELIAL None Seen 20151201 CELLS ----URBC None Seen 20151201 ----UWBC None Seen 20151201 Summary Purpose eClinicalWorks Submission
--- OUTSIDE RECORDS SUMMARY | 2016-12-19 20:10 | External Medical Summary ---
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 Active 78442291 syndrome Problem Venous 459.81 Active 58560873 Insufficiency Problem Bradycardia 427.89 Active 89178911 Problem Dyslipidemia E78.4 Active 973146196 (high LDL; low HDL) 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
--- OUTSIDE RECORDS SUMMARY | 2016-12-19 20:10 | External Medical Summary ---
:1932 Author Organization [facility] Spec Address [address] [place] [address] Care Team Providers Name Role Phone Fab Vasquez Unavailable Unavailable PROBLEMS Type Condition ICD9-CM [id number] Onset Condition SNOMED Code Code Code Dates Status Problem Degenerative M51.36 Active 60911702 disc disease, lumbar Problem Carotid I65.22 Active 537546214427778 stenosis, left Problem Chronic pain G89.4 Active 568745855 syndrome Problem Seizure disorder G40.909 Active 377794833 Problem Anxiety F41.9 Active 70455524 Problem Benign N40.1 Active 991938123 non-nodular prostatic hyperplasia with lower urinary tract symptoms Problem Impaired gait R26.89 Active 61200492 and mobility Problem Lumbago with M54.41 Active 812800531 sciatica, right side Problem Other chronic G89.29 Active 12192172 pain ALLERGIES Unknown Allergies SOCIAL HISTORY No smoking Hx information available PLAN OF CARE VITAL SIGNS MEDICATIONS Medication Instructions Dosage Frequency Start Date End Date Duration Status Keppra 500 mg orally 2 times a 1 tab(s) 12h 01 Aug, 90 day(s) Active 2016 RESULTS No Results PROCEDURES No Known procedures IMMUNIZATIONS No Known Immunizations
--- OUTSIDE RECORDS SUMMARY | 2016-12-19 20:10 | External Medical Summary ---
[...] eluting coronary stent Z95.5 Active placement Medications Medication Code System Code Instructions Start Date End Date Status Dosage Lab Order NDC 0 Orders Nov 27, 2015 as directed Results No Known Results Summary Purpose eClinicalWorks Submission
--- OUTSIDE RECORDS SUMMARY | 2016-12-19 20:10 | External Medical Summary ---
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
--- OUTSIDE RECORDS SUMMARY | 2016-12-19 20:10 | External Medical Summary ---
:1932 Author Organization [employer]Clinical[employer] Care Team Providers Name Role Phone Fab Vasquez Provider Role Unavailable Allergies No Known Allergies Problems Problem Type Condition Code Onset Dates Condition Status Problem Intermittent claudication 443.9 Active Medications Medication Code System Code Instructions Start Date End Date Status Dosage alprazolam [facility] 36849 0.5 mg orally 1 Oct 14, 2013 1 tab(s) times a day at HS Results No Known Results Summary Purpose eClinicalWorks Submission
--- OUTSIDE RECORDS SUMMARY | 2016-12-19 20:10 | External Medical Summary ---
:1932 Author Organization [employer] Care Team Providers Name Role Phone Marco [...] Medications Results No Known Results Summary Purpose [employer] Data Submission
--- OUTSIDE RECORDS SUMMARY | 2016-12-19 20:10 | External Medical Summary ---
:1932 Author Organization [employer]ClinicalWorks Care Team Providers Name Role Phone Fab Vasquez Provider Role Unavailable Allergies No Known Allergies Problems No Known Problems Medications Medication Code System Code Instructions Start Date End Date Status Dosage HCTZ [facility] 56279 12.5 mg by mouthl Apr 08, 2014 1 pill once a day Results No Known Results Summary Purpose eClinicalWorks Submission
--- OUTSIDE RECORDS SUMMARY | 2016-12-19 20:10 | External Medical Summary ---
:1932 Author Organization [employer] Care Team Providers Name Role Phone Marco [...] Medications Results No Known Results Summary Purpose eClinical[employer]zish Submission
--- OUTSIDE RECORDS SUMMARY | 2016-12-19 20:10 | External Medical Summary ---
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
--- OUTSIDE RECORDS SUMMARY | 2016-12-19 20:10 | External Medical Summary ---
[...] Problem Carotid stenosis, left I65.22 Active Assessment Right lumbosacral radiculopathy M54.17 Active Problem Intermittent claudication 443.9 Active Assessment Spinal stenosis of lumbar region M48.06 Active Medications Medication Code Code Instructions Start End Date Status Dosage System Date Percocet-10/325 NDC 33564 325 mg-10 mg September 15 tab(s) orally every 6 2016 hours alprazolam NDC 81058 0.5 mg orally August 03 tab(s) BID 2015 amlodipine NDC 34786 2.5 mg orally 1 tab(s) once a day Selsun Blue NDC 73779 1% applied July 20 lanie Balanced topically 2 2015 Treatment times a week donepezil-memant NDC 341762 10 mg-28 mg 1 cap(s) ine orally once a day omeprazole NDC 46466 20 mg orally 1 cap(s) once a day loratadine NDC 84833 10MG orally once 1 tab(s) a day Requip XL NDC 288747 1 mg orally one July 19 tab(s) in the am and 2015 at night Fish Oil NDC 76867 500 mg orally 2 2 cap(s) times a day magnesium NDC 0 250mg as directed Aspirin Low Dose NDC 889338 81 mg orally 1 tab(s) once a day flunisolide NDC 19263 25 mcg/inh 2 puff(s) nasal intranasally 2 times a day atorvastatin NDC 11292 20 mg orally September 10/2 tab(s) once a day (at 2015 bedtime) terazosin NDC 08340 2MG orally once 1 cap(s) a day (at bedtime) Refresh Dry Eye NDC 942376 - in each eye 2 1 gtt Therapy times a day potassium NDC 0 daily 1 gluconate finasteride NDC 92980 5 mg orally once 1 tab(s) a day loratadine NDC 81597 10 mg orally Apr 30, 1 tab(s) once a day 2014 lutein NDC 737032 6 mg orally once 1 cap(s) a day Procedures Procedure Coding System Code Date Office/Outpatient Visit-Est CPT-4 81702 Nov 03, 2015 Vital Signs Date/Time: Nov 03, 2015 Temperature 98.6 F Blood Pressure Diastolic 64 mm Hg Blood Pressure Systolic 1126 mm Hg BMI 22.93 Index Height 68 in Weight 150.8 lbs Pulse 87 /min Results No Known Results Summary Purpose eClinicalWorks Submission
--- OUTSIDE RECORDS SUMMARY | 2016-12-19 20:10 | External Medical Summary ---
:1932 Author Organization [employer] Care Team Providers Name Role Phone Marco [...] Medications Results No Known Results Summary Purpose [employer] Submission
--- OUTSIDE RECORDS SUMMARY | 2016-12-19 20:10 | External Medical Summary ---
:1932 Author Organization [employer]ClinicalWorks Care Team Providers Name Role Phone Fab Vasquez Provider Role Unavailable Allergies, Adverse Reactions, Alerts Substance Reaction Event Type Lipitor muscle weakness Drug Allergy Problems Problem Type Condition Code Onset Dates Condition Status Assessment Intermittent claudication 443.9 Active Assessment LBP (low back pain) 724.2 Active Problem Intermittent claudication 443.9 Active Assessment Radicular pain 729.2 Active Medications Medication Code Code Instructions Start End Date Status Dosage System Date omeprazole NDC 35380 20 mg orally 1 cap(s) once a day amlodipine NDC 26077 2.5 mg orally 1 tab(s) once a day potassium NDC 0 daily 1 gluconate terazosin NDC 21015 2MG orally once June 24, 1 cap(s) a day (at 2014 bedtime) Jessie NDC 53274 325 mg-5 mg 1-2 tab(s) orally every 6 hours finasteride NDC 10911 5 mg orally once 1 tab(s) a day magnesium NDC 0 250mg as directed lutein NDC 470937 6 mg orally once 1 cap(s) a day Refresh Dry Eye NDC 642088 - in each eye 2 1 gtt Therapy times a day alprazolam NDC 76231 0.5 mg orally 1 Oct 14, 1 tab(s) times a day at 2013 HS loratadine NDC 57114 10 mg orally Apr 30, 1 tab(s) once a day 2014 flunisolide NDC 51367 25 mcg/inh 2 puff(s) nasal intranasally 2 times a day Plavix NDC 80310 75 mg orally 1/2 tab(s) once a day Fish Oil NDC 50492 1000 mg orally 3 1 cap(s) times a day HCTZ NDC 43027 25 mg orally June 09, 1/2 pill once a day 2014 Aspirin Low Dose NDC 114757 81 mg orally 1 tab(s) once a day Procedures Procedure Coding System Code Date Office/Outpatient Visit-Est CPT-4 90633 July 03, 2014 Vital Signs Date/Time: July 03, 2014 Temperature 97.7 F Blood Pressure Diastolic 60 mm Hg Blood Pressure Systolic 108 mm Hg BMI 23.06 Index Height 68 in Weight 151.7 lbs Pulse 54 /min Results No Known Results Summary Purpose eClinicalWorks Submission
--- OUTSIDE RECORDS SUMMARY | 2016-12-19 20:10 | External Medical Summary ---
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 44228643 syndrome Problem Venous 459.81 Active 82943958 Insufficiency Problem Bradycardia 427.89 Active 35887469 Problem Dyslipidemia E78.4 Active 561109743 (high LDL; low HDL) Problem detention Z79.02 Active 019595220485184 (current) use of antithrombotics/a ntiplatelets Problem Long-term use of Z79.82 Active 272959475479306 aspirin therapy Problem Presence of Z95.0 Active 319774880 cardiac pacemaker Problem CAD (coronary I25.10 Active 84692280 artery disease) Problem Carotid disease, I77.9 Active 801205164 bilateral Problem History of CEA Z98.89 Active (carotid endarterectomy) ALLERGIES Unknown Allergies SOCIAL HISTORY No smoking Hx information available PLAN OF CARE VITAL SIGNS MEDICATIONS Unknown Medications RESULTS No Results PROCEDURES No Known procedures IMMUNIZATIONS No Known Immunizations
--- OUTSIDE RECORDS SUMMARY | 2016-12-19 20:10 | External Medical Summary ---
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
--- OUTSIDE RECORDS SUMMARY | 2016-12-19 20:10 | External Medical Summary ---
[...] Start Date End Date Status Dosage alprazolam [facility] 53179 0.5 mg orally BID August 04, 2015 1 tab(s) Results No Known Results Summary Purpose eClinicalWorks Submission
--- OUTSIDE RECORDS SUMMARY | 2016-12-19 20:10 | External Medical Summary ---
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
--- OUTSIDE RECORDS SUMMARY | 2016-12-19 20:10 | External Medical Summary ---
:1932 Author Organization [facility] Spec Address [address] [place] [address] Care Team Providers Name Role Phone Fab Vasquez Unavailable Unavailable PROBLEMS Type Condition ICD9-CM [id number] Onset Condition SNOMED Code Code Code Dates Status Problem Impaired gait and R26.89 Active 57237337 mobility Problem Other chronic pain G89.29 Active 46169221 Problem Benign non-nodular N40.1 Active 217094420 prostatic hyperplasia with lower urinary tract symptoms Problem Degenerative disc M51.36 Active 17100128 disease, lumbar Problem Chronic pain G89.4 Active 892169704 syndrome Problem Carotid stenosis, I65.22 Active 677985146476481 left Problem 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
--- OUTSIDE RECORDS SUMMARY | 2016-12-19 20:10 | External Medical Summary ---
:1932 Author Organization [facility] Spec Address [address] [place] [address] Care Team Providers Name Role Phone Fab Vasquez Unavailable Unavailable PROBLEMS Type Condition ICD9-CM [id number] Onset Condition SNOMED Code Code Code Dates Status Problem Degenerative M51.36 Active 63126591 disc disease, lumbar Problem Carotid I65.22 Active 088558132492393 stenosis, left Problem Chronic pain G89.4 Active 665594984 syndrome Assessment Seizure disorder G40.909 18 July, Active 811054197 2016 Problem Seizure disorder G40.909 Active 572574175 Problem Anxiety F41.9 Active 66709453 Problem Benign N40.1 Active 535225351 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
--- OUTSIDE RECORDS SUMMARY | 2016-12-19 20:11 | External Medical Summary | Summary of Care ---
:1932 Author Name Lakhwinder Jane M.D. Address [address] [place] [address] [place] [address] Care Team Providers Name Role Phone Lakhwinder [...] 1 TABLET DAILY. Refills: 0 Cho M.D., [facility] 01-Jan-2016 Active Lutein 10 MG Oral Tablet Take 1 tablet daily Refills: 0 Cho M.D., [facility] 01-Jan-2016 Active Nitroglycerin 0.4 MG Sublingual Tablet Sublingual DISSOLVE 1 TABLET UNDER THE TONGUE NEEDED FOR CHEST PAIN. Refills: 0 Cho M.D., [facility] 01-Jan-2016 Active Omeprazole 10 MG Oral Capsule Delayed Release take one capsule before breakfast Refills: 0 Cho M.D., [facility] 01-Jan-2016 Active ROPINIRole HCl - 1 MG Oral Tablet TAKE 1 TABLET AT BEDTIME. Refills: 0 Cho M.D., [facility] 01-Jan-2016 Active Sennosides-Docusate Sodium 8.6-50 MG Oral Tablet TAKE 1 TABLET TWICE DAILY. Refills: 0 Cho M.D., [facility] 01-Jan-2016 Active Plavix 75 MG Oral Tablet TAKE 1 TABLET DAILY. Refills: 0 Cho M.D., [facility] 01-Jan-2016 Active Cyclobenzaprine HCl - 5 MG Oral Tablet Take one tablet PRN Refills: 0 Cho M.D., [facility] 01-Jan-2016 Active Finasteride 5 MG Oral Tablet TAKE 1 TABLET Bedtime Refills: 0 Cho M.D., [facility] 01-Jan-2016 Active Flonase Allergy Relief 50 MCG/ACT [...] Post Spinal Diskect Osteophytect Lumb Interspace Microdiscec URINE CULTURE [id number] Ordered: 01-Jan-2016 Immunization Name Dates Details Immunizations not documented [...] m2 Status: Results Date Description Value Details Results not documented Plan of Care Name Dates Details Planned Observations Planned Goals not documented Planned Encounters Appointment; Provider: Lakhwinder Jane M.D. On 03-Feb-2016 14:00 Interventions Provided Labs/Procedures/ImagingURINE CULTURE [id number]; To be Done: 01 Jan 2016 Instructions Name Dates Details Instructions not documented Encounters Appointment; Lakhwinder Jane M.D. On 01-Jan-2016 Encounter Diagnosis: Problem not documented 11:15
--- OUTSIDE RECORDS SUMMARY | 2016-12-19 20:11 | External Medical Summary ---
:1932 Author Organization [facility] Spec Address [address] [place] [address] Care Team Providers Name Role Phone Fab Vasquez Unavailable Unavailable PROBLEMS Type Condition ICD9-CM [id number] Onset Condition SNOMED Code Code Code Dates Status Problem Chronic pain G89.4 Active 909294382 syndrome Problem Degenerative M51.36 Active 81278410 disc disease, lumbar Problem Anxiety F41.9 Active 71872804 Problem Lumbago with M54.41 Active 155754466 sciatica, right side Problem Impaired gait R26.89 Active 51213215 and mobility Problem Carotid I65.22 Active 139524485464229 stenosis, left Problem Other chronic G89.29 Active 48917957 pain Problem Benign N40.1 Active 410131244 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
--- OUTSIDE RECORDS SUMMARY | 2016-12-19 20:11 | External Medical Summary ---
:1932 Author Organization [employer] Care Team Providers Name Role Phone Fab Vasquez Provider Role Unavailable Allergies No Known Allergies Problems Problem Type Condition Code Onset Dates Condition Status Problem Intermittent claudication 443.9 Active Medications Medication Code System Code Instructions Start Date End Date Status Dosage alprazolam [facility] 41911 0.5 mg orally 1 Oct 14, 2013 1 tab(s) times a day at HS Results No Known Results Summary Purpose eClinicalWorks Submission
--- OUTSIDE RECORDS SUMMARY | 2016-12-19 20:11 | External Medical Summary ---
:1932 Author Organization [employer]ClinicalWorks Care Team Providers Name Role Phone Fab Vasquez Provider Role Unavailable Allergies, Adverse Reactions, Alerts Substance Reaction Event Type Lipitor muscle weakness Drug Allergy Problems Problem Type Condition ICD-9 Code Onset Dates Condition Status Assessment LBP (low back pain) 724.2 Active Problem Intermittent claudication 443.9 Active Medications Medication Code Code Instructions Start End Date Status Dosage System Date HCTZ NDC 28767 25 mg orally June 09, 1/2 pill once a day 2014 finasteride NDC 95857 5 mg orally once 1 tab(s) a day potassium NDC 0 daily 1 gluconate Aspirin Low Dose NDC 062793 81 mg orally 1 tab(s) once a day terazosin NDC 18548 2MG orally once June 24, 1 cap(s) a day (at 2014 bedtime) lutein NDC 280207 6 mg orally once 1 cap(s) a day omeprazole NDC 95799 20 mg orally 1 cap(s) once a day Plavix NDC 18769 75 mg orally 1/2 tab(s) once a day magnesium NDC 0 250mg as directed flunisolide NDC 44446 25 mcg/inh 2 puff(s) nasal intranasally 2 times a day Refresh Dry Eye NDC 879767 - in each eye 2 1 gtt Therapy times a day alprazolam NDC 99681 0.5 mg orally 1 Oct 14, 1 tab(s) times a day at 2013 HS [place] NDC 55079 325 mg-10 mg September 24, tab(s) orally every 12 2015 hours [place] NDC 44280 325 mg-5 mg 1-2 tab(s) orally every 6 hours amlodipine NDC 67409 2.5 mg orally 1 tab(s) once a day loratadine NDC 85225 10 mg orally Apr 30, 1 tab(s) once a day 2014 Fish Oil NDC 82549 1000 mg orally 3 1 cap(s) times a day Procedures Procedure Coding System Code Date X-Ray Exam of Lower Spine CPT-4 88388 September 24, 2014 Office/Outpatient Visit-Est CPT-4 17317 September 24, 2014 Basic Metabolic Panel CPT-4 28811 September 24, 2014 Vital Signs Date/Time: September 24, 2014 Temperature 97.8 F Blood Pressure Diastolic 66 mm Hg Blood Pressure Systolic 100 mm Hg BMI 22.62 Index Height 68 in Weight 148.8 lbs Pulse 51 /min Results No Known Results Summary Purpose eClinicalWorks Submission
--- OUTSIDE RECORDS SUMMARY | 2016-12-19 20:11 | External Medical Summary ---
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
--- OUTSIDE RECORDS SUMMARY | 2016-12-19 20:11 | External Medical Summary ---
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
--- OUTSIDE RECORDS SUMMARY | 2016-12-19 20:11 | External Medical Summary | Referral Summary ---
:1930 Author Organization [facility] Address [address] [place] [address] Care Team Providers Name Role Phone Fab Vasquez Primary Care Physician Encounter [facility] [phone] Date(s): 05/24/15 - 05/24/15 [facility] [address] [place] [address] [place] [phone] Discharge Diagnosis: Branch retinal artery occlusion Discharge Disposition: 01-Home or Self Care Attending Physician: Sergio Lopez MD Admitting Physician: Sergio Lopez MD Vital Signs Most recent to oldest [Reference Range]: 1 Temperature Oral [35.8-37.3 degC] 36.5 degC (05/24/15 4:30 PM) Peripheral Pulse Rate [60-100 bpm] 53 bpm *LOW* (05/24/15 6:30 PM) Respiratory Rate [14-20 br/min] 20 br/min (05/24/15 6:30 PM) Blood Pressure [90-140/60-90 mmHg] 159/88 mmHg *HI* (05/24/15 6:30 PM) SpO2 98 % (05/24/15 6:30 PM) Problem List Condition Effective Dates Status Health Status Informant Anxiety state (finding)(Confirmed) Active Backache (finding)(Confirmed) Active Benign essential hypertension Active (disorder)(Confirmed) Unspecified Constipation(Confirmed) Active Coronary arteriosclerosis Active (disorder)(Confirmed) Coronary Atheroscl Unspec Active Vessel(Confirmed)1 serum testosterone -485(Confirmed) 06/14/06 Active Diverticulosis(Confirmed) Active Gastroesophageal reflux disease Active (disorder)(Confirmed) Unspecified glaucoma(Confirmed) 2012 Active hx of urinary retention(Confirmed) Active Lung nodule, followed with lisy [address](Confirmed) Myalgia and myositis, 2012 Active unspecified(Confirmed) Osteoarthrosis Spec Sites(Confirmed) Active Pneumonia Organism 1998 Active Unspecified(Confirmed) Pure hypercholesterolemia Active (disorder)(Confirmed) RLS(Confirmed) Active 1--- Hx 3 stents in Coronary ateries in 2000 [place]. Cardiac Cath~[address] Laura reportedly 57, medical mamagement. Allergies, Adverse Reactions, Alerts Substance Reaction Severity Status lisinopril COUGH Active sulfamethoxazole RASH Active trimethoprim RASH Active Medications ALPRAZolam 0.5 mg oral tablet take 1 tablet, Oral, very sparingly for anxiety attacks. May cause drowsiness. no more htan one per 24 hours. Start Date: 04/14/15 Status: OrderedamLODIPine 5 mg oral tablet take 1 tablet, Oral, Daily Start Date: 04/14/15 Status: Orderedaspirin 81 mg oral delayed release tablet take 1 tablet, Oral, Daily Start Date: 04/14/15 Status: Orderedatorvastatin 40 mg oral tablet take 0.5 Tablet, Oral, Daily Start Date: 04/14/15 Status: Orderedfinasteride 5 mg oral tablet take 1 tablet, Oral, Daily Start Date: 04/14/15 Status: OrderedFish Oil 1000 mg oral capsule take 1 by, Oral, Daily Start Date: 04/14/15 Status: Orderedflunisolide 25 mcg/inh nasal spray spray 2 spray, Nasal, BID, flunisolide 25 mcg (0.025 %) Nasal [place] by intranasal route in each nostril. Start Date: 04/14/15 Status: Orderedhydrochlorothiazide 12.5 mg oral tablet take 1 tablet, Oral, Daily Start Date: 04/14/15 Status: Orderedloratadine 10 mg oral tablet Take 1 tablet, Oral, Daily, by mouth Start Date: 04/14/15 Status: Orderedlutein 6 mg oral capsule take 1 by, Oral, Daily Start Date: 04/14/15 Status: Orderednitroglycerin 0.[address] 1 tablet, SubLingual, FOR CHEST PAIN MAY REPEAT IN 5 MIN. Start Date: 04/14/15 Status: Orderedomeprazole 20 mg oral delayed release capsule take 1 capsule, Oral, Daily, before a meal. Start Date: 04/14/15 Status: Orderedterazosin 2 mg oral capsule TAKE ONE, Oral, Bedtime (once a day), BY MOUTH Start Date: 04/14/15 Status: Ordered Results Hematology Most recent to oldest [Reference Range]: 1 WBC [4.8-10.8 10*3/uL] 7.0 10*3/uL (05/24/15 4:47 PM) RBC [4.60-6.20] 4.43 *LOW* (05/24/15 4:47 PM) Hgb [14.0-18.0 gm/dL] 13.3 gm/dL *LOW* (05/24/15 4:47 PM) Hct [42.0-52.0 %] 40.9 % *LOW* (05/24/15 4:47 PM) MCV [82.0-99.0 fL] 92.3 fL (05/24/15 4:47 PM) MCH [27.0-32.0 pg] 30.0 pg (05/24/15 4:47 PM) MCHC [32.0-36.0 gm/dL] 32.5 gm/dL (05/24/15 4:47 PM) RDW [11.5-14.5 %] 14.5 % (05/24/15 4:47 PM) Platelet [150-400 10*3/uL] 193 10*3/uL (05/24/15 4:47 PM) MPV [9.4-12.3 fL] 9.3 fL *LOW* (05/24/15 4:47 PM) Immature Granulocytes [0.0-1.0 %] 0.1 % (05/24/15 4:47 PM) Neutrophils [51-75 %] 60 % (05/24/15 4:47 PM) Lymphocytes [20-46 %] 33 % (05/24/15 4:47 PM) Monocytes [4-11 %] 5 % (05/24/15 4:47 PM) Eosinophils [0-4 %] 2 % (05/24/15 4:47 PM) Basophils [0-2 %] 0 % (05/24/15 4:47 PM) Neutro Absolute [1.90-7.00 10*3] 4.15 10*3 (05/24/15 4:47 PM) Lymph Absolute [0.80-3.30 10*3] 2.30 10*3 (05/24/15 4:47 PM) [place] Absolute [0.30-1.00 10*3] 0.36 10*3 (05/24/15 4:47 PM) Eos Absolute [0.00-0.50 10*3] 0.13 10*3 (05/24/15 4:47 PM) Baso Absolute [0.00-0.20 10*3] 0.01 10*3 (05/24/15 4:47 PM) Nucleated RBC Automated [0 /100 WBC] 0.0 /100 WBC (05/24/15 4:47 PM) Chemistry Most recent to oldest [Reference Range]: 1 Sodium Lvl [136-144 mEq/L] 137 mEq/L (05/24/15 4:47 PM) Potassium Lvl [3.6-5.1 mEq/L] 3.2 mEq/L *LOW* (05/24/15 4:47 PM) Chloride [99-109 mEq/L] 101 mEq/L (05/24/15 4:47 PM) CO2 [22-32 mEq/L] 28 mEq/L (05/24/15 4:47 PM) AGAP [3-20] 8 (05/24/15 4:47 PM) BUN [4-20 mg/dL] 21 mg/dL *HI* (05/24/15 4:47 PM) Glucose Lvl [70-100 mg/dL] 140 mg/dL *HI* (05/24/15 4:47 PM) Creatinine Lvl [0.64-1.27 mg/dL] 1.23 mg/dL (05/24/15 4:47 PM) eGFR [>60] 56 1 *ABN* (05/24/15 4:47 PM) Calcium Lvl [8.6-10.0 mg/dL] 8.9 mg/dL (05/24/15 4:47 PM) Albumin Lvl [3.5-4.8 gm/dL] 3.4 gm/dL *LOW* (05/24/15 4:47 PM) Total Protein [6.1-7.9 gm/dL] 6.6 gm/dL (05/24/15 4:47 PM) Globulin [1.9-4.3 gm/dL] 3.2 gm/dL (05/24/15 4:47 PM) ALT [17-63 U/L] 24 U/L (05/24/15 4:47 PM) AST [15-41 U/L] 28 U/L (05/24/15 4:47 PM) Alk Phos [26-104 U/L] 51 U/L (05/24/15 4:47 PM) Bili Total [0.2-1.2 mg/dL] 0.6 mg/dL 2 (05/24/15 4:47 PM) Sodium Venous [136-144 mEq/L] 138 mEq/L (05/24/15 4:54 PM) Potassium Venous [3.6-5.1 mEq/L] 3.2 mEq/L 3 *LOW* (05/24/15 4:54 PM) Calcium Ionized Venous [1.19-1.41 mmol/L] 1.11 mmol/L *LOW* (05/24/15 4:54 PM) Total CO2 Venous [25-29 mEq/L] 25 mEq/L (05/24/15 4:54 PM) HGB Venous NPT [14.0-16.0 gm/dL] 14.3 gm/dL (05/24/15 4:54 PM) HCT Venous [42.0-52.0 %] 42.0 % (05/24/15 4:54 PM) Glucose Venous [70-100 mg/dL] 137 mg/dL *HI* (05/24/15 4:54 PM) BUN Venous [4-20] 23 *HI* (05/24/15 4:54 PM) Creatinine Venous [0.7-1.2 mg/dL] 1.2 mg/dL (05/24/15 4:54 PM) Venous CL [99-109 mEq/L] 100 mEq/L (05/24/15 4:54 PM) Anion Gap, [place]um [3-20] 13 (05/24/15 4:54 PM) 1Result Comment: Multiply eGFR results by 1.21 for race.2Result Comment: Naproxen, specifically the metabolite O-desmethylnaproxen, may cause spurious elevation in Total Bilirubin levels.3Result Comment: This test was performed on a whole blood specimen. The presence or absence of hemolysis cannot be assessed. Hemolysis can falsely elevate potassium levels. Normals are for venous specimens only. 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 [facility] [id number] cath with 3 stents and 2 balloons. 97874klron cath with 3 stents and 2 balloons. 00970gvuts cath with 3 stents and 2 balloons. --- for GI Bleed Social History Social History Type Response Smoking Status Former smoker Assessment and Plan No data available for this section
--- OUTSIDE RECORDS SUMMARY | 2016-12-19 20:11 | External Medical Summary ---
:1932 Author Organization [employer] Care Team Providers Name Role Phone Fab Vasquez Provider Role Unavailable Allergies, Adverse Reactions, Alerts Substance Reaction Event Type losartan Info Not Available Drug Allergy lisinopril Info Not Available Drug Allergy morphine Info Not Available Drug Allergy sulfamethoxazole Info Not Available Drug Allergy Lipitor muscle weakness Drug Allergy Problems Problem Type Condition Code Onset Dates Condition Status Problem Impaired gait and mobility R26.89 Active Problem Carotid stenosis, left I65.22 Active Problem Benign non-nodular prostatic N40.1 Active hyperplasia with lower urinary tract symptoms Assessment Urinary retention R33.9 Active Assessment Benign non-nodular prostatic N40.1 Active hyperplasia with lower urinary tract symptoms Problem Chronic pain syndrome G89.4 Active Problem Degenerative disc disease, lumbar M51.36 Active Medications Medication Code Code Instructions Start End Date Status Dosage System Date loratadine NDC 47254 10 mg orally 1 tab(s) once a day magnesium NDC 0 250mg not defined valacyclovir NDC 41320 1 g orally every 1 tab(s) 8 hours ropinirole NDC 35582 1 mg orally 3 1 tab(s) times a day Flexeril NDC 0 10 mg orally 1 tab(s) three times a day prn Potassium NDC 2910986 not defined Chlorate, 500 g amlodipine NDC 14661 2.5 mg orally 1 tab(s) once a day [place] NDC 64195 325 mg-10 mg 2 tab(s) orally every 6 hours terazosin NDC 72966 2 mg orally once 1 cap(s) a day (at bedtime) finasteride NDC 53659 5 mg orally once 1 tab(s) a day atorvastatin NDC 13874 10 mg orally 1 tab(s) once a day (at bedtime) Plavix NDC 82908 75 mg orally 1 tab(s) once a day Vitamin D3 NDC 4871 5000 intl units 1 cap(s) orally once a day Aspir 81 NDC 456410 81 mg orally 1 tab(s) [place] [address] 20 mg orally 1 cap(s) once a day fish oil OTC NDC 360185 ethyl esters 2 cap(s) 1000 mg orally 2 times a day Procedures Procedure Coding System Code Date Office/Outpatient Visit-Est CPT-4 82617 Jan 04, 2016 Vital Signs Date/Time: Jan 04, 2016 Temperature 97.9 F Blood Pressure Diastolic 80 mm Hg Blood Pressure Systolic 152 mm Hg BMI 22.94 Index Height 68 in Weight 150.9 lbs Pulse 91 /min Results No Known Results Summary Purpose eClinicalWorks Submission
--- OUTSIDE RECORDS SUMMARY | 2016-12-19 20:11 | External Medical Summary ---
:1932 Author Organization [facility] Spec Address [address] [place] [address] Care Team Providers Name Role Phone Fab Vasquez Unavailable Unavailable PROBLEMS Type Condition ICD9-CM [id number] Onset Condition SNOMED Code Code Code Dates Status Problem Degenerative M51.36 Active 77128241 disc disease, lumbar Problem Carotid I65.22 Active 902565892620297 stenosis, left Problem Chronic pain G89.4 Active 966881205 syndrome Problem Seizure disorder G40.909 Active 873976359 Problem Anxiety F41.9 Active 69632848 Problem Benign N40.1 Active 044790571 non-nodular prostatic hyperplasia with lower urinary tract symptoms Problem Impaired gait R26.89 Active 97735566 and mobility Problem Lumbago with M54.41 Active 695380527 sciatica, right side Problem Other chronic G89.29 Active 32627667 pain ALLERGIES Unknown Allergies SOCIAL HISTORY No smoking Hx information available PLAN OF CARE VITAL SIGNS MEDICATIONS Medication Instructions Dosage Frequency Start Date End Date Duration Status [place] 325 mg-10 orally every 4 1 tab(s) 4h 30 days Active mg hours RESULTS No Results PROCEDURES No Known procedures IMMUNIZATIONS No Known Immunizations
--- OUTSIDE RECORDS SUMMARY | 2016-12-19 20:11 | External Medical Summary ---
:1932 Author Organization [employer] Care Team Providers Name Role Phone Fab Vasquez Provider Role Unavailable Allergies No Known Allergies Problems Problem Type Condition ICD-9 Code Onset Dates Condition Status Problem Intermittent claudication 443.9 Active Medications Medication Code System Code Instructions Start Date End Date Status Dosage alprazolam [facility] [address] 0.5 mg orally 1 Oct 14, 2013 1 tab(s) times a day at Results No Known Results Summary Purpose eClinicalWorks Submission
--- OUTSIDE RECORDS SUMMARY | 2016-12-19 20:11 | External Medical Summary ---
:1932 Author Organization [facility] Address [address] [place] [address] Care Team Providers Name Role Phone Fab Vasquez Unavailable Unavailable PROBLEMS Type Condition ICD9-CM [id number] Onset Condition SNOMED Code Code Code Dates Status Problem Degenerative M51.36 Active 23475794 disc disease, lumbar Problem Carotid I65.22 Active 381410574476808 stenosis, left Problem Chronic pain G89.4 Active 217299792 syndrome Problem Seizure disorder G40.909 Active 985427263 Problem Anxiety F41.9 Active 59745497 Problem Benign N40.1 Active 239784541 non-nodular prostatic hyperplasia with lower urinary tract symptoms Problem Impaired gait R26.89 Active 62390689 and mobility Problem Lumbago with M54.41 Active 917245595 sciatica, right side Problem Other chronic G89.29 Active 54006973 pain ALLERGIES Unknown Allergies SOCIAL HISTORY No smoking Hx information available PLAN OF CARE VITAL SIGNS MEDICATIONS Unknown Medications RESULTS No Results PROCEDURES No Known procedures IMMUNIZATIONS No Known Immunizations
--- OUTSIDE RECORDS SUMMARY | 2016-12-19 20:11 | External Medical Summary | Summary of Care ---
:1932 Author Name Lakhwinder Jane M.D. Address [address] [place] [address] [place] [address] Care Team Providers Name Role Phone Lakhwinder [...] 1 TABLET DAILY. Refills: 0 Cho M.D., [facility] 01-Jan-2016 Active Lutein 10 MG Oral Tablet Take 1 tablet daily Refills: 0 Cho M.D., [facility] 01-Jan-2016 Active Nitroglycerin 0.4 MG Sublingual Tablet Sublingual DISSOLVE 1 TABLET UNDER THE TONGUE NEEDED FOR CHEST PAIN. Refills: 0 Cho M.D., [facility] 01-Jan-2016 Active Omeprazole 10 MG Oral Capsule Delayed Release take one capsule before breakfast Refills: 0 Cho M.D., [facility] 01-Jan-2016 Active ROPINIRole HCl - 1 MG Oral Tablet TAKE 1 TABLET AT BEDTIME. Refills: 0 Cho M.D., [facility] 01-Jan-2016 Active Sennosides-Docusate Sodium 8.6-50 MG Oral Tablet TAKE 1 TABLET TWICE DAILY. Refills: 0 Cho M.D., [facility] 01-Jan-2016 Active Plavix 75 MG Oral Tablet TAKE 1 TABLET DAILY. Refills: 0 Cho M.D., [facility] 01-Jan-2016 Active Cyclobenzaprine HCl - 5 MG Oral Tablet Take one tablet PRN Refills: 0 Cho M.D., [facility] 01-Jan-2016 Active Finasteride 5 MG Oral Tablet TAKE 1 TABLET Bedtime Refills: 0 Cho M.D., [facility] 01-Jan-2016 Active Flonase Allergy Relief 50 MCG/ACT [...] Diskect Osteophytect Lumb Interspace Microdiscec URINE CULTURE [id number] Ordered: 01-Jan-2016 Immunization Name Dates Details Immunizations [...] On 03-Feb-2016 14:00 Interventions Provided Labs/Procedures/ImagingURINE CULTURE [id number]; To be Done: 01 Jan 2016 Instructions Name Dates Details Instructions not documented Encounters Appointment; Lakhwinder Jane M.D. On 01-Jan-2016 Encounter Diagnosis: Problem not documented 11:15
--- OUTSIDE RECORDS SUMMARY | 2016-12-19 20:11 | External Medical Summary ---
:1932 Author Organization [employer] Care Team Providers Name Role Phone Fab Vasquez Provider Role Unavailable Allergies No Known Allergies Problems Problem Type Condition ICD-9 Code Onset Dates Condition Status Problem Intermittent claudication 443.9 Active Medications Medication Code System Code Instructions Start Date End Date Status Dosage alprazolam [facility] [address]704 0.5 mg orally 1 Oct 14, 2013 1 tab(s) times a day at Results No Known Results Summary Purpose eClinicalWorks Submission
--- OUTSIDE RECORDS SUMMARY | 2016-12-19 20:11 | External Medical Summary ---
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
--- OUTSIDE RECORDS SUMMARY | 2016-12-19 20:11 | External Medical Summary ---
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 Active Assessment Dyslipidemia (high LDL; low HDL) E78.4 Active Assessment S/P drug eluting coronary stent Z95.5 Active placement Assessment Hypertension I10 Active Assessment CAD (coronary artery disease) I25.10 Active Medications Medication Code Code Instructions Start End Status Dosage System Date Date Clopidogrel Bisulfate [facility] 25315-4 75 MG Orally qd 1 tablet 314-[address] [facility] 93153-1 0.4 MG 1 tab 697-25 Sublingual prn chest [place] [address]-9 10 MG Orally 1/2 tab 015-05 Once a [place] [address]-0 1000 MG Orally 1 cap 3950 Once a day Potassium NDC 0 Orally qd 1 tab Vitamin D NDC 11552-5 Orally Once a 1 tablet 334-01 [place] [address]-3 81 MG Orally qd Dec 02, tab 274-68 2010 [place] [address]-2 10 MG Orally qd 1 tab 070-10 Lutein NDC 32461-6 Orally qd 1 tab 080-36 Ropinirole HCl NDC 25085-9 1 MG Orally 1 tablet 1 118-25 Once a day to 3 hours before bedtime Leg Cramp Relief NDC 68438-9 Orally qd 1 tab 0910 Finasteride NDC 07816-4 5 MG Orally qd 1 tab 825-01 Omeprazole NDC 12352-7 20 MG Orally qd 1 cap 211-01 Amlodipine Besylate NDC 32946-2 5 MG Orally qd 1/4 tab 101-20 Donepezil NDC 04437-5 10 MG Orally qd 1 tab Hydrochloride 739-05 Terazosin HCl NDC 64218-4 2 MG Orally qhs 1 cap 761-01 Magnesium NDC 87090-5 Orally qd 1 cap 854-01 Hydrochlorothiazide NDC 38358-9 25 MG Orally 1 tab 256-01 qod Procedures Procedure Coding System Code Date Ofc Program PM Dual, Staff CPT-4 39215 August 24, 2015 Office Visit, Est Pt., Level 4 CPT-4 23894 August 24, 2015 Vital Signs Date/Time: August 24, 2015 BMI 21.76 Index Weight 156 lbs Height 71 in Cardiac Monitoring Heart Rate 89 /min Oximetry 98%RA % Blood Pressure Diastolic 80 mm Hg Blood Pressure Systolic 150 mm Hg Results No Known Results Summary Purpose eClinicalWorks Submission
--- OUTSIDE RECORDS SUMMARY | 2016-12-19 20:11 | External Medical Summary ---
:[address] [facility] Spec Address [address] [place] [address] Care Team Providers Name Role Phone Fab Vasquez Unavailable Unavailable PROBLEMS Type Condition ICD9-CM UHI40-DD Onset Condition SNOMED Code Code Code Dates Status Problem Degenerative M51.36 Active 98299678 disc disease, lumbar Problem Carotid I65.22 Active 448835022117881 stenosis, left Problem Chronic pain G89.4 Active 972746020 syndrome Problem Seizure disorder G40.909 Active 387016130 Problem Anxiety F41.9 Active 98231784 Problem Benign N40.1 Active 869200540 non-nodular prostatic hyperplasia with lower urinary tract symptoms Problem Impaired gait R26.89 Active 87385657 and mobility Problem Lumbago with M54.41 Active 435468971 sciatica, right side Problem Other chronic G89.29 Active 44447698 pain ALLERGIES Unknown Allergies SOCIAL HISTORY No smoking Hx information available PLAN OF CARE VITAL SIGNS MEDICATIONS Medication Instructions Dosage Frequency Start Date End Date Duration Status Keppra 500 mg orally 2 times a 1 tab(s) 12h 01 Aug, 30 day(s) Active 2016 RESULTS No Results PROCEDURES No Known procedures IMMUNIZATIONS No Known Immunizations
--- OUTSIDE RECORDS SUMMARY | 2016-12-19 20:11 | External Medical Summary ---
:1932 Author Organization [employer] Care Team Providers Name Role Phone Fab Vasquez Provider Role Unavailable Allergies No Known Allergies Problems No Known Problems Medications Medication Code System Code Instructions Start Date End Date Status Dosage HCTZ [facility] [address] 25 mg orally once a June 09, pill day 2014 Results No Known Results Summary Purpose eClinicalWorks Submission
[2016-12-19] MEDS: HYDROCODONE/APAP 10 MG/325 MG TABLET PO PRN (21:43)
[2016-12-19 22:41] VITALS: BMI 22.7
[2016-12-19] MEDS: LACOSAMIDE 100mg TABLET PO SCH (23:14)
[2016-12-20] MEDS: HYDROCODONE/APAP 10 MG/325 MG TABLET PO PRN ×5 (01:27→23:36)
[2016-12-20] MEDS ORDERED: FALL RISK - PHARMACY CONSULT MC ONE (02:00)
[2016-12-20] MEDS: OMEPRAZOLE 20 MG CAPSULE PO SCH (06:27)
[2016-12-20] MEDS: LUTEIN 20 MG CAPSULE PO SCH (08:47)
[2016-12-20] MEDS: ASPIRIN *EC* 81 MG TABLET PO SCH (08:47)
[2016-12-20] MEDS: LORATADINE 10 MG TABLET PO SCH (08:48)
[2016-12-20] MEDS: REFRESH CELLUVISC 1% Eye Drops 0.4ml EACH EYE SCH ×2 (08:50→08:58)
[2016-12-20] MEDS: CLOPIDOGREL 75 MG TABLET PO SCH (08:51)
[2016-12-20] MEDS: LACOSAMIDE 100mg TABLET PO SCH ×2 (08:51→21:55)
[2016-12-20] MEDS: OMEGA-3 ACID ESTERS 1 GM CAPSULE PO SCH (08:53)
[2016-12-20] MEDS: CYCLOBENZAPRINE 10 MG TABLET PO PRN (08:54)
[2016-12-20] MEDS ORDERED: FLUTICASONE NASAL SPRAY 50mcg EA NOSTRIL PRN (09:00)
--- NOTE | 2016-12-20 09:14 | IRU History & Physical Report ---
HPI IRU Date: Chief complaint: my hip hurts HPI: Mr. Troy is a pleasant 86-year-old male referred by Dr. Ramiro James, orthopedist at [facility] in [place]. The patient had apparently fallen at home on 12/14/2016. His primary care physician is Dr. Fab Vasquez. History is obtained partially from the patient but due to his poor memory, history is also obtained from transfer records. According to his , he had an unexpected fall on 12/14/2016 when he was trying to step out of a fifth wheel camper. He was referred to [facility] in [place]. A right hip revision procedure was performed on 12/14/[address] Ramiro James. Patient reports that he had had a previous right hip surgery in [place] resulting in leg shortening and external rotation. Therefore he states that he was happy to get this procedure done. He has had quite a bit of discomfort in the hip since surgery. However his memory is quite poor and does not recall when he gets a pain pill. In addition, the patient had a witnessed fall at [facility] in the hospital on 12/17/2016. At that time some abrasions were sustained above the right eye in the eyebrow area as well as over the bridge of the nose. He does not recall that event nor does he remember what led to it. There is no report of loss of consciousness nor change in mentation since. The patient has a rather complex past history. He does have history of partial seizures with the most recent seizure being in July 2016. He is on lacosamide in this regard. In addition, he has had quite a bit of anemia in the postoperative timeframe. His preop hemoglobin is nearly as I can determine was 8.8. After surgery was 6.5. He received 1 or 2 units of packed red blood cells while in [place]. Here his hemoglobin has again been low. There is no evidence of acute blood loss upon examination of the patient's wound. He thinks he may have had an ulcer in the past but he is not certain about that. He does have history of chronic nocturnal hypoxemia and apparently uses oxygen at home at night on a routine basis. He also has history of hypertension. He then relates a story about some type of spot on his liver which he says was a small area of "cancer." He states this was removed. He does not know the source of the malignancy. He does have history of dementia. He is fairly self-sufficient at home with his around however. He was independent prior to the fall. He does not use an assistive device at home. Interestingly, despite his inability to really give me much of a recent history, he was able to use his cell phone and pull up a picture of his hip fracture. He does have history of atherosclerotic heart disease with at least 2 stents having been placed in the past. He denies any current chest pain. Does report some dyspnea with activity. He reports reduced range of motion of the left shoulder which he demonstrated to me. Right shoulder seems to move okay. He has also been plagued by constipation and has not had a bowel movement since his surgery on 12/14/2016. He has a history of urinary retention and apparently does straight catheterizations at home on a routine basis. Also has frequent UTIs. He recently finished up a round of antibiotics according to his . He now has an indwelling Ng catheter since the surgery. Reports an episode of bilateral vision loss. Apparently the vision returned in the right eye but the left eye remains very poor. His prior level of functioning prior to the fall was independent for eating, grooming, bathing, upper and lower body dressing, toileting, bed/chair/ wheelchair transfers, toilet transfers and walking. He was able to walk 500 feet with a single-point cane. He was independent with stairs and modified independent for comprehension. He lives in his own home with his . They have one or 2 steps to get into the house but does have a basement with some 13 steps. Uncertain if he needs to go down there however. His current level of functioning is as follows: He is supervision level for eating, grooming, bathing, upper body dressing. He is minimal assistance for lower body dressing. Toileting and bed/chair/wheelchair transfers have not been tested. He requires moderate assistance for walking with a rolling walker 80 feet. He is moderate assistance for stair climbing. He requires supervision for comprehension. The following medical conditions are noted and require active monitoring and/or management: 1. Recent surgery involving the right hip. He is at risk for surgical site infections, repeated falls, lightheadedness. 2. Acute blood loss anemia in the postoperative timeframe: He is at risk for further bleeding, lightheadedness and falls. 3. Partial seizure: He is at risk for recurrent seizures with his last seizure having been in July 2016. 4. Nocturnal hypoxemia: The patient has a history of nocturnal hypoxemia. He is at risk for poor tissue perfusion and further confusion regarding his hypoxemia. 5. Dementia with acute toxic delirium in the immediate postoperative timeframe. This is referred to in the transfer records. Pain management may be a challenge in view of his confusion etc. 6. Underlying coronary artery disease status post stent placement. He is at risk for recurrent angina in view of increased activity with therapy. The following therapies will be needed: 1. Physical therapy: for transfers and ambulation and stairs. 2. Occupational therapy: for ADL's and transfers. 3. Medical management: for the above conditions. 4. 24 hour Rehabilitation Nursing to monitor and address the following: [facility] Patient Stated Medical History Dementia Yes Transient Ischemic Attacks ( Yes TIA) Hearing Loss Yes Other HEENT Yes: PVD with TIA affecting eye Coronary Artery Disease Yes Hypertension Yes Other Cardiology Yes: PVD Other Respiratory Yes: nocturnal hypoxemia Constipation Yes Hx Incontinence No Hx Urinary Tract Infection Yes: hx of Other Yes: bladder disorder with chronic strait caths at home. Ng currently Anemia Yes Osteoarthritis Yes Blood Transfusions Yes Other Behavioral Health Yes: dementia Medical History Updates: 1. ASHD status post 2 stent placements. 2. Partial seizure disorder with last seizure being July 2016. 3. Dementia. 4. Acute blood loss anemia. 5. Nocturnal hypoxemia. 6. Hypertension. 7. Osteoarthritis Surgical History: 1. Bilateral total knee replacements. 2. Remote history of right hip surgery. 3. More recent right hip revision. 4. Cataract procedure. 5. Back surgery. 6. Neck surgery. 7. Appendectomy. 8. Pacemaker placement. 9. Tonsillectomy and adenoidectomy. 10. Possible removal of lesion from liver, not characterized at present. Family History: Father of old age. Mother age 101. Twin brother had metastatic malignancy and is . - Social History Smoking status: Former smoker Packs per day: 1 (started smoking age 22 and quit about age 26) Substance use type: does not use Alcohol intake: former Housing: house Household members: spouse Current occupational status: retired Current residence: Apartment/Private Home Social history: Patient lives with his in their home in [facility]. He has been fairly independent. 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 They have 4 daughters. Review of Systems - Constitutional Constitutional: Present: fatigue. Absent: anorexia - EENMT Eyes: Absent: blurry vision, change in vision Balance: Absent: vertigo - Cardiovascular Cardiovascular: Absent: chest pain, palpitations, syncope, dyspnea on exertion, orthopnea, edema, heart murmur Vascular: Absent: Raynaud's, intermittent claudication - Respiratory Respiratory: Present: dyspnea. Absent: cough, hemoptysis, dyspnea on exertion, wheezing, pain on inspiration, chest congestion, excessive phlegm production - Gastrointestinal Gastrointestinal: Present: change in bowel habits, constipation. Absent: abdominal pain - Integumentary/Breasts Integumentary: Absent: alopecia, change in hair, erythema, lesions - Neurological Neurological: Present: abnormal gait, convulsions, loss of vision, memory loss. Absent: abnormal movements, abnormal speech, burning sensations Medications Home Medications Medication Instructions Recorded Confirmed Type Finasteride 5 mg PO HS #0 11/25/11 12/19/16 History Loratadine 10 mg PO DAILY #0 11/25/11 12/19/16 History Omeprazole 20 mg PO ACB #0 11/25/11 12/19/16 History Lutein 20 mg PO DAILY #0 08/12/15 12/19/16 History Fluticasone Propionate (Flonase 50 2 spray INH PRN PRN #0 12/17/15 12/19/16 History mcg/actuation [place]) ALPRAZolam [Xanax] 0.5 mg PO BID PRN 12/19/16 12/19/16 History Aspirin [Aspirin EC] 81 mg PO DAILY 12/19/16 12/19/16 History Atorvastatin [Lipitor] 20 mg PO HS 12/19/16 12/19/16 History Carboxymethylcellulose [Methocel E 3 drops EACH EYE DAILY 12/19/16 12/19/16 History 4 M] Clopidogrel [Plavix] 75 mg PO DAILY 12/19/16 12/19/16 History Cyclobenzaprine [Flexeril] 10 mg PO DAILY PRN 12/19/16 12/19/16 History Fluticasone [Flovent Diskus 50 mcg] 1 puff INH BID 12/19/16 12/19/16 History Hydrocodone/APAP 10/325 [[place] 1 tab PO Q4H PRN 12/19/16 12/19/16 History 10/325] Lacosamide [Vimpat] 100 mg PO BID 12/19/16 12/19/16 History Mirtazapine [Remeron] 30 mg PO HS 12/19/16 12/19/16 History [place]-3 Fatty Acids [[place]-3] 1,000 mg PO DAILY 12/19/16 12/19/16 History Allergies Allergy/AdvReac Type Severity Reaction Status Date / Time morphine Allergy Severe Verified 12/17/15 06:23 lisinopril Allergy Unknown Verified 12/17/15 06:23 losartan Allergy Unknown Verified 12/17/15 06:23 sulfamethoxazole Allergy Unknown Verified 12/17/15 06:23 trimethoprim Allergy Unknown Verified 12/17/15 06:23 Results IRU - Labs Labs: I reviewed extensive outside records. Exam Vital Signs: Temperature 98.6 F 12/19/16 20:15 Pulse Rate 86 12/19/16 23:21 Respiratory Rate 20 12/19/16 20:15 Blood Pressure 167/84 H 12/19/16 23:21 Pulse Oximetry 98 12/19/16 20:15 Height/Weight/BMI: Height 1.78 m Weight 72 kg Body Mass Index 22.7 - Constitutional Present: mild distress, thin, cooperative - Routine HEENT Exam Head: Present: normocephalic, abrasion. Absent: atraumatic (abrasions with Steri-Strips noted above right eye and over bridge of nose. No active infection and no bleeding.) Eye: Present: EOMI, PERRL. Absent: conjunctival icterus, scleral injection ENT: Present: mucous membranes moist, oropharynx clear - Routine Neck Exam Present: supple, full ROM - Routine Respiratory Exam Present: CTA bilaterally. Absent: dyspnea, decreased breath sounds, prolonged expiratory phase, rales, respiratory distress, rhonchi, stridor, wheezes, crackles - Routine Cardiovascular Exam Present: RRR, S1, S2, no murmur. Absent: S3, S4, irregular rhythm - Routine Abdominal Exam Present: soft, normoactive bowel sounds, non distended, non tender. Absent: distended, rebound, guarding, organomegaly, mass, hernia - Routine Extremities Exam Present: no edema, pulses intact, normal capillary refill. Absent: cyanosis, clubbing, edema - Routine Skin Exam Present: intact, dry, warm. Absent: cyanosis, erythema - Routine Neurological Exam Present: alert, CN II-XII intact. Absent: oriented X3 - Routine Psychiatric Exam Present: normal affect, normal thought process, cooperative. Absent: good insight, good judgment - Additional findings Additional findings: Memory loss noted. Numerous questions which I asked him he was not able to address. Sepsis Assessment - Evaluation Confirmed Suspected Infection: No IRU A/P (1) Hip fracture, right Qualifiers: Encounter type: subsequent encounter Fracture type: closed Fracture healing: with routine healing Qualified Code(s): S72.001D - Fracture of unspecified part of neck of right femur, subsequent encounter for closed fracture with routine healing Current visit: Yes Status: Acute An intensive individualized program of occupational therapy and physical therapy will be designed for this patient. (2) Hypertension Qualifiers: Hypertension type: essential hypertension Qualified Code(s): I10 - Essential (primary) hypertension Current visit: Yes Status: Chronic Blood pressure will be monitored carefully in view of his acute blood loss anemia and risk for further bleeding. (3) Acute blood loss anemia Current visit: Yes Status: Acute Has been struggling with anemia in the postoperative timeframe. He is received several units of packed red blood cells. However, we do not see evidence of active bleeding at this time. This will be monitored carefully. (4) Nocturnal hypoxemia Current visit: Yes Status: Chronic We will continue nocturnal oxygen supplementation as well as monitoring saturations during the daytime with activity. (5) Partial seizure disorder Current visit: Yes Status: Chronic He is at risk for recurrent seizures in this stressful timeframe. Remains on anticonvulsant therapy. Last seizure was in July. He will be monitored carefully for this. (6) ASHD (arteriosclerotic heart disease) Current visit: Yes Status: Chronic He is at risk for recurrence of chest discomfort in view of the increased exercise associated with therapy. This will be monitored carefully. He is status post stent placement 2. DVT Prophylaxis: SCD's, Lovenox Resuscitation Status: Full Code - Course Hospital Course: Maxwell Bernal MD: - Interventions to Obtain Goals PT Treatment Plan: Balance/Proprioception, Functional Activities, Gait Training , Patient/Family Education OT Treatment Plan: ADL (Basic Care), Pt./Family Education Goals Progress/Modifications: The patient will undergo intensive individualized occupational therapy and physical therapy. He will require 24 rehabilitation nursing to monitor his blood pressure, evidence of acute bleeding, as well as pain management and his confusion episodes. He'll require medical management as well by the hospitalist service and myself for his multiple medical problems.
--- NOTE | 2016-12-20 09:28 | Consult Note ---
<Linda Quevedo - Last Filed: 12/20/16 09:19> Consult Information - Data of Consult Consult date: 12/20/16 Requesting Physician: Maxwell Bernal MD Primary Care Provider: FAB VASQUEZ Family Provider: FAB VASQUEZ - Consult Narrative Reason for consult: S/P rigth hip revision, medical management, HTN History of present illness: Bridgette Troy is a very pleasant 86-year-old male who was directly admitted to [facility] on 12/19/16 from [facility] for continued intensive therapies secondary to functional deficits and uncontrolled pain. Mr. Troy has a history of dementia and is a poor historian. The majority of his history is obtained from prior medical records and nursing staff as no family is present at the time of exam. All medical records available were reviewed. It is reported that he fell at home while attempting to get out his 5th wheel camper on 12/14/16. He was transferred to [facility] where he underwent a surgical revision of his right hip by Dr. Ramiro James on 12/14. Following his surgery, he continued to struggle with pain control as well as significant post- op anemia. Review of labs prior to his hip surgery revealed initial hemoglobin at 8.8. He has a history of anemia as well as prior PUD and GERD. He denies any symptoms proceeding his fall including no chest pain, shortness of breath, abdominal pain, nausea, vomiting, blood in his stools or dark tarry stools, though he admits that he doesn't remember falling. Serial hemoglobins were reviewed and reveal max hemoglobin of 8.8 on 12/14 and lowest hemoglobin at 6.1. He received a total of 3 units PRBC on 12/15, 12/16 and 12/19, immediately prior to transfer to [facility]. Documentation from [facility] reveals he sustained a fall from his chair on 12/17 resulting in facial abrasions to his forehead and the bridge of his nose as well as a contusion to his right cheek. CT head was reportedly negative. He is on chronic thromboprophylaxis with Plavix and ASA secondary to a history of CAD with prior stent placement. Due to his functional deficits, uncontrolled pain, and risk of exacerbation of his chronic medical conditions, family requested his transfer to [facility] for continued intensive therapies. On exam, he is seen while pushing himself back to his room in his wheelchair from the dining room. He complains of severe right hip pain, 9/10, and repeatedly questions if he received his pain medication this morning. He denies any other concerns or complains. No dizziness, lightheadedness, near- syncope, chest pain, shortness of breath, abdominal pain, nausea, vomiting. He currently has a Ng catheter in place secondary to a history of BPH and states that he self cathed at home prior to his fall. He has seen Dr. Jane in the past for urinary retention. Initial labs today revealed hemoglobin 6.9 at 0408. Repeat CBC at 754 revealed slight improvement in hemoglobin at 7.6. [facility] Patient Stated Medical History Vascular dementia. 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 Peripheral vascular disease. Coronary artery disease with prior stent placement. Hypertension. Hypercholesterolemia. Nocturnal hypoxemia requiring supplemental oxygen at 2L. Constipation. History of urinary tract infections. BPH with chronic home self catheterizations. Chronic anemia. Osteoarthritis. History of prior blood transfusions without reactions. Allergic rhinitis. History of seizure disorder - most recent reported seizure was 07/2016. GERD. History of peptic ulcers. Stable posterior cerebral aneurysm. Surgical History: Right hip revision - 12/14/2016. Total right hip replacement - 2016 (in [place]). Microdisectomy of L5 - 12/2015. Colonoscopy with polypectomy - 2011. Cardiac stent placement - 2000, 2012. Carotid endarterectomy - 07/2015. Bilateral total knee arthroplasties. Lumbar fusion. Cervical fusion. Family History: Patient reports that both his mother and father lived to be over 100 years old and of "old age". He had a twin brother who in his 50's from renal cell carcinoma. He has 4 daughters, all living, and are reported to be healthy. - Social History Smoking status: Never smoker Substance use type: does not use Alcohol intake frequency: does not drink Household members: spouse (Ary - 63 years.) Current occupational status: retired Does patient use chewing tobacco?: No Current residence: Apartment/Private Home Social history: PCP - Dr. Fab Vasquez. Ortho - Dr. Ramiro James. Review of Systems All systems PM: 10-point ROS was reviewed, no additional remarkable complaints except - Constitutional Constitutional: Present: weakness. Absent: chills, fatigue, fever(s), headache( s), lethargy, night sweats - EENMT Eyes: Absent: change in vision, pain, photophobia Ears: Absent: ear pain Balance: Present: other (falls/leans backwards with standing.) Nose: Present: allergies. Absent: nosebleeds Mouth/Throat: Absent: sore throat, changes in swallowing, change in voice - Cardiovascular Cardiovascular: Absent: chest pain, palpitations, syncope, dyspnea on exertion, orthopnea, edema Vascular: Absent: pedal edema, unilateral swelling - Respiratory Respiratory: Absent: cough, dyspnea, hemoptysis, dyspnea on exertion, wheezing, chest congestion - Gastrointestinal Gastrointestinal: Present: constipation. Absent: abdominal pain, hematochezia, melena, nausea, vomiting - Genitourinary Genitourinary: Present: other (history of urinary retention with Ng present) - Musculoskeletal Musculoskeletal: Present: abnormal gait, arthralgias (right hip), limited range of motion (right hip), muscle weakness. Absent: deformity - Integumentary/Breasts Integumentary: Absent: rash, jaundice - Neurological Neurological: Present: abnormal gait, confusion, memory loss, weakness. Absent : dizziness, focal weakness - Psychiatric Psychiatric: Present: behavioral changes - Endocrine Endocrine: Absent: flushing, palpitations - Hematologic/Lymphatic Hematologic/Lymphatic: Present: easy bruising - Allergic/Immunologic Allergic/Immunologic: Present: seasonal rhinorrhea Medications Home Medications Medication Instructions Recorded Confirmed Type Finasteride 5 mg PO HS #0 11/25/11 12/19/16 History Loratadine 10 mg PO DAILY #0 11/25/11 12/19/16 History Omeprazole 20 mg PO ACB #0 11/25/11 12/19/16 History Lutein 20 mg PO DAILY #0 08/12/15 12/19/16 History Fluticasone Propionate (Flonase 50 2 spray INH PRN PRN #0 12/17/15 12/19/16 History mcg/actuation Nasal [place]) ALPRAZolam [Xanax] 0.5 mg PO BID PRN 12/19/16 12/19/16 History Aspirin [Aspirin EC] 81 mg PO DAILY 12/19/16 12/19/16 History Atorvastatin [Lipitor] 20 mg PO HS 12/19/16 12/19/16 History Carboxymethylcellulose [Methocel E 3 drops EACH EYE DAILY 12/19/16 12/19/16 History 4 M] Clopidogrel [Plavix] 75 mg PO DAILY 12/19/16 12/19/16 History Cyclobenzaprine [Flexeril] 10 mg PO DAILY PRN 12/19/16 12/19/16 History Fluticasone [Flovent Diskus 50 mcg] 1 puff INH BID 12/19/16 12/19/16 History Hydrocodone/APAP 10325 [[place] 1 tab PO Q4H PRN 12/19/16 12/19/16 History 10/325] Lacosamide [Vimpat] 100 mg PO BID 12/19/16 12/19/16 History Mirtazapine [Remeron] 30 mg PO HS 12/19/16 12/19/16 History Clover-3 Fatty Acids [Clover-3] 1,000 mg PO DAILY 12/19/16 12/19/16 History Allergies Allergy/AdvReac Type Severity Reaction Status Date / Time morphine Allergy Severe Verified 12/17/15 06:23 lisinopril Allergy Unknown Verified 12/17/15 06:23 losartan Allergy Unknown Verified 12/17/15 06:23 sulfamethoxazole Allergy Unknown Verified 12/17/15 06:23 trimethoprim Allergy Unknown Verified 12/17/15 06:23 Exam Vital Signs: Temperature 98.6 F 12/19/16 20:15 Pulse Rate 86 12/19/16 23:21 Respiratory Rate 20 12/19/16 20:15 Blood Pressure 167/84 H 12/19/16 23:21 Pulse Oximetry 98 12/19/16 20:15 Height/Weight/BMI: Height 5 ft 10 in Weight 158 lb 11.725 oz Body Mass Index 22.7 - Constitutional Present: no acute distress, well nourished, well developed, cooperative Comments: Very pleasant male seen in his room. - Routine HEENT Exam Head: Present: normocephalic, abrasion (bridge of nose and right forehead), laceration (right eye brow with steri-strips present) Eye: Present: PERRL. Absent: conjunctival icterus ENT: Present: mucous membranes moist, dentition normal Comments: Ecchymosis noted to right cheek; wearing glasses and bilateral hearing aids on exam. - Routine Neck Exam Present: supple, full ROM, trachea midline. Absent: tenderness - Routine Chest/Breast/Axilla Exam Chest wall: Present: pacemaker - Routine Respiratory Exam Present: CTA bilaterally. Absent: stridor, wheezes, crackles - Routine Cardiovascular Exam Present: RRR, S1, S2 - Routine Abdominal Exam Present: soft, normoactive bowel sounds, non tender, distended - Routine Exam Comments: Ng catheter present and actively draining clear, yellow urine. - Routine Extremities Exam Present: no edema, pulses intact Comments: HERIBERTO hose present; limited ROM of right hip secondary to pain. - Routine Back/Spine/Pelvis Exam Back/Spine: Present: pain with lateral flexion (to right hip), pain with rotation (to right hip). Absent: CVA tenderness, vertebral tenderness - Routine Skin Exam Present: dry, warm. Absent: jaundice Comments: healing abrasion with scab to bridge of nose and right forehead; healing area of ecchymosis to right cheek; laceration with steri-strips noted to right eyebrow. - Routine Neurological Exam Present: alert, moving all extremities, normal tone, hearing grossly intact, normal speech orientated to person, place and situation but not time; does admit to not remembering some details of his falls. - Routine Psychiatric Exam Present: normal affect, cooperative Comments: poor safety awareness noted as patient had to be reminded not to stand up alone. Results - Labs CBC & Chem 7: 12/20/16 07:54 12/20/16 04:08 Labs: Review of labs prior to admission from [facility] revealed: Date 12/14 (pre-op) 12/15 12/16 12/17 12/18 12/19 12/20 Hemoglobin 8.8 6.5 6.6 7.2 7.0 6.1 6.9 6.7* 7.3* 7.6 *Following transfusion of 1 unit. Assessment and Plan DVT Prophylaxis: SCD's, HERIBERTO Elizabeth GI Prophylaxis: other (Prilosec) Resuscitation Status: Full Code Assessment and Plan: Assessment Anemia, acute on chronic post-op, present on admission. * History of prior blood transfusions without reactions. Hypocalcemia, acute, present on admission. S/P right hip surgical revision - Dr. Ramiro James, 12/14/16. Vascular dementia, chronic - history of post-op encephalopathy. Hypertension, chronic. Hypercholesterolemia, chronic. Nocturnal hypoxemia requiring supplemental oxygen at 2L, chronic. Peripheral vascular disease, chronic. Coronary artery disease with prior stent placement, chronic. History of TIAs affecting left eye, chronic. GERD, chronic. History of peptic ulcers, chronic. Constipation, chronic. BPH with chronic home self catheterizations - current Ng catheter present. History of urinary tract infections. Osteoarthritis, chronic. Allergic rhinitis, chronic. History of seizure disorder - most recent reported seizure was 07/2016. Stable posterior cerebral aneurysm, chronic. Plan-12/20/16 (Consult). Agree with admission to IRU under the guided care of Dr. Bernal for continued rehabilitation and therapies. Pain control per Dr. Bernal. Continue bowel motivation with senna plus and miralax daily. Hemoglobin on admission was 6.9 (s/p transfusion of 1 unit PRBC prior to arrival ). Repeat CBC revealed slight improvement at 7.6 without additional treatment. Will continue to monitor closely. In light of the patient's history of severe anemia with known CAD and vascular dementia, will type and cross and give 1 unit now. Recheck hemoglobin following transfusion. Patient remains asymptomatic. Will obtain B12, folate and iron for further evaluation given chronic anemia. Continue home medications. Monitor closely for seizure activity and continue to provide safe and supportive environment. Review of records from [facility] indicated home terazosin 1mg daily was discontinued during his hospitalization. Will restart his terazosin 1mg daily for hypertension and BPH. Monitor blood pressure closely as it has been elevated since admission with systolic pressures in 170's-180's. History of nocturnal hypoxemia. Will provide oxygen at 2L NC at night and as needed PRN. Would recommend night oximetry evaluation prior to discharge. Encourage incentive spirometry for pulmonary toileting. Chronic thromboprophylaxis with Plavix and ASA given CAD. Monitor closely for signs of bleeding given anemia. Will check fecal hemocele for further evaluation fo anemia as he has required multiple transfusions since surgery. Continue Prilosec for GERD and GI protection. UA results from admission to [facility] on 12/14 revealed 5-10 WBC with numerous bacteria. In light of chronic self-catheterizing, expect pyuria is secondary to colonization. Patient remains afebrile without complaints. Will hold off on UA and antibiotic treatment at this time. Monitor closely for signs of infection. Monitor hip incision closely for signs of infection. Daily dressing changes. Removal of stables to hip between 12/21 and 12/[address] steri-strips. Patient may shower when wound is no longer draining; no tub baths. Patient to follow up with Dr. James the week on 01/16 for post-op evaluation. Upon discharge, patient's care will be returned to his PCP, Dr. Fab Vasquez. - Time spent with patient Time with patient PN: other (85 minutes) Hospital Course Summary Disclaimer: The visit summary below is not to be considered part of the above Progress Note. Hospital Course: Assessment Anemia, acute on chronic post-op, present on admission. * History of prior blood transfusions without reactions. Hypocalcemia, acute, present on admission. S/P right hip surgical revision - Dr. Ramiro James, 12/14/16. Vascular dementia, chronic - history of post-op encephalopathy. Hypertension, chronic. Hypercholesterolemia, chronic. Nocturnal hypoxemia requiring supplemental oxygen at 2L, chronic. Peripheral vascular disease, chronic. Coronary artery disease with prior stent placement, chronic. History of TIAs affecting left eye, chronic. GERD, chronic. History of peptic ulcers, chronic. Constipation, chronic. BPH with chronic home self catheterizations - current Ng catheter present. History of urinary tract infections. Osteoarthritis, chronic. Allergic rhinitis, chronic. History of seizure disorder - most recent reported seizure was 07/2016. Stable posterior cerebral aneurysm, chronic. Plan-12/20/16 (Consult). Agree with admission to IRU under the guided care of Dr. Bernal for continued rehabilitation and therapies. Pain control per Dr. Bernal. Continue bowel motivation with senna plus and miralax daily. Hemoglobin on admission was 6.9 (s/p transfusion of 1 unit PRBC prior to arrival ). Repeat CBC revealed slight improvement at 7.6 without additional treatment. Will continue to monitor closely. In light of the patient's history of severe anemia with known CAD and vascular dementia, will type and cross and give 1 unit now. Recheck hemoglobin following transfusion. Patient remains asymptomatic. Will obtain B12, folate and iron for further evaluation given chronic anemia. Continue home medications. Monitor closely for seizure activity and continue to provide safe and supportive environment. Review of records from [facility] indicated home terazosin 1mg daily was discontinued during his hospitalization. Will restart his terazosin 1mg daily for hypertension and BPH. Monitor blood pressure closely as it has been elevated since admission with systolic pressures in 170's-180's. History of nocturnal hypoxemia. Will provide oxygen at 2L NC at night and as needed PRN. Would recommend night oximetry evaluation prior to discharge. Encourage incentive spirometry for pulmonary toileting. Chronic thromboprophylaxis with Plavix and ASA given CAD. Monitor closely for signs of bleeding given anemia. Will check fecal hemocele for further evaluation fo anemia as he has required multiple transfusions since surgery. Continue Prilosec for GERD and GI protection. UA results from admission to [facility] on 12/14 revealed 5-10 WBC with numerous bacteria. In light of chronic self-catheterizing, expect pyuria is secondary to colonization. Patient remains afebrile without complaints. Will hold off on UA and antibiotic treatment at this time. Monitor closely for signs of infection. Monitor hip incision closely for signs of infection. Daily dressing changes. Removal of stables to hip between 12/21 and 12/[address] steri-strips. Patient may shower when wound is no longer draining; no tub baths. Patient to follow up with Dr. James the week on 01/16 for post-op evaluation. Upon discharge, patient's care will be returned to his PCP, Dr. Fab Vasquez. <Rachael Pedraza - Last Filed: 12/20/16 21:26> Consult Information - Data of Consult Requesting Physician: Maxwell Brenal MD Primary Care Provider: FAB VASQUEZ Family Provider: FAB VASQUEZ Exam Vital Signs: Temperature 97.9 F 12/20/16 17:58 Pulse Rate 84 12/20/16 17:58 Respiratory Rate 22 12/20/16 17:58 Blood Pressure 134/67 12/20/16 17:58 Pulse Oximetry 92 12/20/16 17:58 Height/Weight/BMI: Height 1.78 m Weight 72 kg Body Mass Index 22.7 Results - Labs CBC & Chem 7: 12/20/16 19:46 12/20/16 04:08 Assessment and Plan Assessment and Plan: I have independently evaluated and examined this patient. I reviewed the chart, the patient's history, and the SHOPPING INSPECTOR/PA's documented findings as above. We discussed and formulated the assessment and plan as above with additions as below: Mr. Troy was transferred to IRU after revision of right DIALLO performed earlier this year. His reports he's had a number of falls in the intervening time. Additionally she describes progressive worsening of his dementia. The patient fell while at [facility] resulting in extensive bruising of the right side of his face and a large hematoma over the zygoma. Transfusions were necessary as noted. Patient provided minimal history but reports that he has been very fatigued and had trouble staying awake. He additionally notes that he' s been having some intermittent pain in his right side prior to fall/hip revision but cannot identify any pattern to when it occurs. Pleasantly confused male with extensive right facial bruising and abrasions over the bridge of the nose and medial and lateral eyebrows. Respirations are nonlabored and breath sounds clear Cardiac rhythm regular. No tenderness on palpation over the ribs and no bruising over the back/chest/ abdomen. Normocytic anemia-studies being obtained, discussed with lab and will see if they can run iron studies on sample drawn prior to today's transfusion. May benefit from IV iron although MCV does not suggest severe iron deficiency. Blood pressure moderately elevated this morning but has improved through the day. Assessment orthostatic vital signs when patient able to stand stably. Old records reviewed, history largely provided by patient's . Ambulatory dysfunction puts patient at high risk for future injuries. Hospital Course Summary Disclaimer: The visit summary below is not to be considered part of the above Progress Note.
[2016-12-20] MEDS ORDERED: NS FLUSH BAG 500ml IV PRN (10:16)
--- NOTE | 2016-12-20 10:58 | IRU 24Hr Post Admit Eval ---
24 Hr Post Admission Physical - Relevant Changes Relevant Changes: No Reviewed: I have reviewed the patient's information and concur with the finding and results of the pre-admission screen. Certification: I certify the patient for rehabilitation. - Patient Condition (1) Hip fracture, right Status: Acute Qualifiers: Encounter type: subsequent encounter Fracture type: closed Fracture healing: with routine healing Qualified Code(s): S72.001D - Fracture of unspecified part of neck of right femur, subsequent encounter for closed fracture with routine healing Code(s): S72.001A - Fracture of unspecified part of neck of right femur, initial encounter for closed fracture Classification: Present on IRF Admission, IRF Tx That Should Address Diagnosis, Diagnosis Requiring Medical Follow Up (2) Hypertension Status: Chronic Qualifiers: Hypertension type: essential hypertension Qualified Code(s): I10 - Essential (primary) hypertension Code(s): I10 - Essential (primary) hypertension Classification: Present on IRF Admission, Diagnosis Requiring Medical Follow Up (3) Acute blood loss anemia Status: Acute Code(s): D62 - Acute posthemorrhagic anemia Classification: Present on IRF Admission, IRF Tx That Should Address Diagnosis, Diagnosis Requiring Medical Follow Up (4) Nocturnal hypoxemia Status: Chronic Code(s): G47.34 - Idiopathic sleep related nonobstructive alveolar hypoventilation Classification: Present on IRF Admission, Diagnosis Requiring Medical Follow Up (5) Partial seizure disorder Status: Chronic Code(s): G40.109 - Localization-related (focal) (partial) symptomatic epilepsy and epileptic syndromes with simple partial seizures, not intractable, without status epilepticus Classification: Present on IRF Admission, Diagnosis Requiring Medical Follow Up (6) ASHD (arteriosclerotic heart disease) Status: Chronic Code(s): I25.10 - Atherosclerotic heart disease of [place] coronary artery without angina pectoris Classification: Present on IRF Admission, Diagnosis Requiring Medical Follow Up - Prior Functional Status Lives With: Spouse Residence Type: Apartment/Private Home Assitive Devices: Straight Cane Prior Functional Status: Indep. at home or school, Used assistive device, Shares IADL - Current Functional Status Current Level of Function: His current level of functioning is as follows: He is supervision level for eating, grooming, bathing, upper body dressing. He is minimal assistance for lower body dressing. Toileting and bed/chair/wheelchair transfers have not been tested. He requires moderate assistance for walking with a rolling walker 80 feet. He is moderate assistance for stair climbing. He requires supervision for comprehension. Failed Alternative Therapy: Arrived from Acute Care Patient Requirements: The patient requires oversight by rehabilitation physician to manage their rehabilitation treatment plan and multidisciplinary approach to care that can only be provided in an IRF and requires a multidisciplinary approach to care, provided by professional PTs, OTs, STs, dieticians, RTs, rehabilitation nurses and is not available in lesser levels of care. Limitations Req: Mobility Impairment, ADL Impairment, Cognitive Impairment Physical Therapy Minutes: 90 Occupational Therapy Minutes: 90 Therapy: The patient is to receive therapy at least 5 days a week. ROM Deficit: Right Lower Extremity - Complications/Comorbidities Impact on Functional Outcomes: His dementia and his acute blood loss anemia will likely impact his functional outcome. Barriers to Discharge: Weakness, Balance, Endurance, Comprehension, Pain Control - Plan to Avoid Complications Plan to Avoid Complications: The patient cannot receive this care in a lesser intensive setting such as Assisted or Outpatient Therapy due to the patient requiring the following : Close monitoring of his blood pressures, evidence of acute blood loss anemia camera, monitoring of hemoglobin levels and risk of seizure which require monitoring. .
[2016-12-20] MEDS: FINASTERIDE 5 MG TABLET PO SCH (21:55)
[2016-12-20] MEDS: ATORVASTATIN 20 MG TABLET PO SCH (21:55)
[2016-12-20] MEDS: TERAZOSIN 1 MG CAPSULE PO SCH (21:56)
[2016-12-20] MEDS: SENNA + DOCUSATE TABLET PO SCH (21:56)
[2016-12-20] MEDS: SALINE FLUSH 10ml SYRINGE IV PRN (22:04)
[2016-12-20] MEDS: MIRTAZAPINE 30 MG TABLET PO SCH (22:07)
[2016-12-21] MEDS: LORATADINE 10 MG TABLET PO SCH (06:14)
[2016-12-21] MEDS: OMEPRAZOLE 20 MG CAPSULE PO SCH (06:14)
[2016-12-21] MEDS: SENNA + DOCUSATE TABLET PO SCH ×2 (08:45→21:43)
[2016-12-21] MEDS: POLYETHYL GLYCOL 3350 17gm PACKET PO SCH (08:45)
[2016-12-21] MEDS: REFRESH CELLUVISC 1% Eye Drops 0.4ml EACH EYE SCH (08:45)
[2016-12-21] MEDS: LUTEIN 20 MG CAPSULE PO SCH (08:45)
[2016-12-21] MEDS: ASPIRIN *EC* 81 MG TABLET PO SCH (08:45)
[2016-12-21] MEDS: LACOSAMIDE 100mg TABLET PO SCH ×2 (08:45→21:43)
[2016-12-21] MEDS: CLOPIDOGREL 75 MG TABLET PO SCH (08:45)
[2016-12-21] MEDS: OMEGA-3 ACID ESTERS 1 GM CAPSULE PO SCH (08:45)
[2016-12-21] MEDS: SALINE FLUSH 10ml SYRINGE IV PRN (08:46)
[2016-12-21] MEDS: HYDROCODONE/APAP 10 MG/325 MG TABLET PO PRN ×2 (08:48→19:50)
--- NOTE | 2016-12-21 17:55 | Progress Note ---
<Linda Washburn - Last Filed: 12/21/16 18:46> - Date 12/21/16 Subjective: Patient seen sitting in bed today. He reports he is doing well. He really has no concerns at this time. He states as long as he gets his pain medicine and the pain is controlled, he is "good." His hemoglobin was low again this morning. He does not feel that he has increased swelling in the thigh. He's not had any bloody bowel movements. Last bowel movement was yesterday. He's had no dizziness or lightheadedness. No headaches. No shortness of breath. He reports chest pain 2 nights ago during the night, which he states "went away on its own. " He doesn't feel he is having increasing swelling in the hip and leg. Objective Vital signs: Temperature 98.2 F 12/21/16 16:00 Pulse Rate 104 H 12/21/16 16:00 Respiratory Rate 20 12/21/16 16:00 Blood Pressure 128/66 12/21/16 16:00 Pulse Oximetry 94 12/21/16 16:00 Height/Weight/BMI: Height 1.78 m Weight 72 kg Body Mass Index 22.7 - Constitutional Present: no acute distress, well nourished, well developed - Routine HEENT Exam Head: Present: normocephalic Eye: Present: EOMI - Routine Respiratory Exam Present: CTA bilaterally. Absent: wheezes - Routine Cardiovascular Exam Present: RRR. Absent: murmur - Routine Abdominal Exam Present: soft, normoactive bowel sounds, non distended. Absent: tenderness - Routine Extremities Exam Present: edema (to the right lower extremity. Most notable in the thigh. He has some bruising medial and lateral upper thigh and lateral in the knee region.), normal capillary refill - Routine Skin Exam Present: dry, warm, wounds (healing abrasion with scab to the bridge of the nose and right forehead. Area of ecchymosis resolving to the right cheek, healing laceration with Steri-Strips noted to right eyebrow) - Routine Neurological Exam Present: alert, oriented X3 - Routine Lymphatic Exam Lymphatic: Absent: adenopathy - Routine Psychiatric Exam Present: normal affect, cooperative Results - Labs CBC & Chem 7: 12/21/16 18:14 12/20/16 04:08 Labs: Laboratory Tests 12/20/16 12/20/16 12/20/16 04:08 07:54 19:46 Hgb 6.9 L 7.6 L 7.7 L Laboratory Tests 12/21/16 12/21/16 04:37 13:44 Hgb 7.2 L 8.4 L D Assessment and Plan (1) Acute blood loss anemia Current visit: Yes Status: Acute Assessment and Plan: Assessment Anemia, acute on chronic post-op, present on admission. * History of prior blood transfusions without reactions. Hypocalcemia, acute, present on admission. S/P right hip surgical revision - Dr. Ramiro James, 12/14/16. Vascular dementia, chronic - history of post-op encephalopathy. Hypertension, chronic. Hypercholesterolemia, chronic. Nocturnal hypoxemia requiring supplemental oxygen at 2L, chronic. Peripheral vascular disease, chronic. Coronary artery disease with prior stent placement, chronic. History of TIAs affecting left eye, chronic. GERD, chronic. History of peptic ulcers, chronic. Constipation, chronic. BPH with chronic home self catheterizations - current Ng catheter present. History of urinary tract infections. Osteoarthritis, chronic. Allergic rhinitis, chronic. History of seizure disorder - most recent reported seizure was 07/2016. Stable posterior cerebral aneurysm, chronic. Plan --Patient was transfused 1 unit of PRBCs this morning making this his fifth unit of blood since surgery on 12/14/16. His hemoglobin last evening was 7.7 and this morning was 7.2. Following his transfusion this morning it was 8.4. This evening it was up to 9.0. Will recheck again in the a.m. --Nurses have measured circumference of his thigh just above the knee and just below his wound. Will repeat measurements this evening and again in the morning to determine if he could be having bleeding in this area. --Plan to remove james tomorrow or the following day. --Patient was receiving two [place] 10/325 PRN pain. Daughters feel like this is too much for him. Will change this to 1 pill every 6 hours PRN and schedule acetaminophen 500 mg 4 times a day routinely. His pain has been decently controlled. --Overall he is doing very well. He wants to go home. Hospital Course Summary Disclaimer: The visit summary below is not to be considered part of the above Progress Note. Hospital Course: Assessment Anemia, acute on chronic post-op, present on admission. * History of prior blood transfusions without reactions. Hypocalcemia, acute, present on admission. S/P right hip surgical revision - Dr. Ramiro James, 12/14/16. Vascular dementia, chronic - history of post-op encephalopathy. Hypertension, chronic. Hypercholesterolemia, chronic. Nocturnal hypoxemia requiring supplemental oxygen at 2L, chronic. Peripheral vascular disease, chronic. Coronary artery disease with prior stent placement, chronic. History of TIAs affecting left eye, chronic. GERD, chronic. History of peptic ulcers, chronic. Constipation, chronic. BPH with chronic home self catheterizations - current Ng catheter present. History of urinary tract infections. Osteoarthritis, chronic. Allergic rhinitis, chronic. History of seizure disorder - most recent reported seizure was 07/2016. Stable posterior cerebral aneurysm, chronic. Plan-12/20/16 (Consult). Agree with admission to IRU under the guided care of Dr. Bernal for continued rehabilitation and therapies. Pain control per Dr. Bernal. Continue bowel motivation with senna plus and miralax daily. Hemoglobin on admission was 6.9 (s/p transfusion of 1 unit PRBC prior to arrival ). Repeat CBC revealed slight improvement at 7.6 without additional treatment. Will continue to monitor closely. In light of the patient's history of severe anemia with known CAD and vascular dementia, will type and cross and give 1 unit now. Recheck hemoglobin following transfusion. Patient remains asymptomatic. Will obtain B12, folate and iron for further evaluation given chronic anemia. Continue home medications. Monitor closely for seizure activity and continue to provide safe and supportive environment. [place] [facility] [place] terazosin 1mg daily was discontinued during his hospitalization. Will restart his terazosin 1mg daily for hypertension and BPH. Monitor blood pressure closely as it has been elevated since admission with systolic pressures in 170's-180's. History of nocturnal hypoxemia. Will provide oxygen at 2L NC at night and as needed PRN. Would recommend night oximetry evaluation prior to discharge. Encourage incentive spirometry for pulmonary toileting. Chronic thromboprophylaxis with Plavix and ASA given CAD. Monitor closely for signs of bleeding given anemia. Will check fecal hemocele for further evaluation fo anemia as he has required multiple transfusions since surgery. Continue Prilosec for GERD and GI protection. UA results [place] [facility] [place] revealed 5-10 WBC with numerous bacteria. In light of chronic self-catheterizing, expect pyuria is secondary to colonization. Patient remains afebrile without complaints. Will hold off on UA and antibiotic treatment at this time. Monitor closely for signs of infection. Monitor hip incision closely for signs of infection. Daily dressing changes. Removal of stables to hip between 12/21 and 12/[address]i-strips. Patient may shower when wound is no longer draining; no tub baths. Patient to follow up with Dr. James the week on 01/16 for post-op evaluation. Upon discharge, patient's care will be returned to his PCP, Dr. Fab Vasquez. 12/21/16 --Patient was transfused 1 unit of PRBCs this morning making this his fifth unit of blood since surgery on 12/14/16. His hemoglobin last evening was 7.7 and this morning was 7.2. Following his transfusion this morning it was 8.4. This evening it was up to 9.0. Will recheck again in the a.m. --Nurses have measured circumference of his thigh just above the knee and just below his wound. Will repeat measurements this evening and again in the morning to determine if he could be having bleeding in this area. --Patient was receiving two [place] 10/325 PRN pain. Daughters feel like this is too much for him. Will change this to 1 pill every 6 hours PRN and schedule acetaminophen 500 mg 4 times a day routinely. His pain has been decently controlled. --Remove james tomorrow or the following day. --Overall he is doing very well. He wants to go home. <Rachael Pedraza - Last Filed: 12/21/16 23:31> - Date 12/21/16 Objective Vital signs: Temperature 98.2 F 12/21/16 16:00 Pulse Rate 104 H 12/21/16 16:00 Respiratory Rate 16 12/21/16 20:16 Blood Pressure 128/66 12/21/16 16:00 Pulse Oximetry 94 12/21/16 16:00 Height/Weight/BMI: Height 1.78 m Weight 72 kg Body Mass Index 22.7 Results - Labs CBC & Chem 7: 12/21/16 18:14 12/20/16 04:08 Assessment and Plan (1) Acute blood loss anemia Current visit: Yes Status: Acute Assessment and Plan: I have independently evaluated and examined this patient. I reviewed the chart, the patient's history, and the [employer]/PA's documented findings as above. We discussed and formulated the assessment and plan as above with additions as below: Patient seen briefly earlier this evening after repeat hemoglobin at 6 PM returned at 9.0. Patient reports he was able to ambulate with therapy without dizziness and he denies dyspnea or chest pain. He denies increased pain in his leg and reported he was pain-free when seen but was concerned about when his last pain pill was because he wants to stay ahead of pain. Daughters were at bedside and were updated on hemoglobin and probability that initial value of 7.2 was artificially low and that current 9.0 is a little high as 1 unit blood should not lead to that much of a change. Patient was in no distress and respirations were nonlabored. Blood pressure 128/ 66. Nursing preparing to measure thigh. Plavix on hold after consultation with food and nutrition supervisor office. No revascularization /stents within past 12 months. Hospital Course Summary Disclaimer: The visit summary below is not to be considered part of the above Progress Note.
[2016-12-21] MEDS: ACETAMINOPHEN 500 MG TABLET PO SCH (21:42)
[2016-12-21] MEDS: TERAZOSIN 1 MG CAPSULE PO SCH (21:42)
[2016-12-21] MEDS: FINASTERIDE 5 MG TABLET PO SCH (21:42)
[2016-12-21] MEDS: ATORVASTATIN 20 MG TABLET PO SCH (21:43)
[2016-12-21] MEDS: MIRTAZAPINE 30 MG TABLET PO SCH (21:43)
[2016-12-22] MEDS: HYDROCODONE/APAP 10 MG/325 MG TABLET PO PRN ×5 (02:00→22:07)
[2016-12-22] MEDS: ALPRAZolam 0.5 MG TABLET PO PRN ×2 (02:28→22:07)
[2016-12-22] MEDS: OMEPRAZOLE 20 MG CAPSULE PO SCH (06:39)
[2016-12-22] MEDS: LORATADINE 10 MG TABLET PO SCH (06:39)
[2016-12-22] MEDS: ACETAMINOPHEN 500 MG TABLET PO SCH ×4 (08:44→20:16)
[2016-12-22] MEDS: LACOSAMIDE 100mg TABLET PO SCH ×2 (08:45→20:17)
[2016-12-22] MEDS: OMEGA-3 ACID ESTERS 1 GM CAPSULE PO SCH (08:45)
[2016-12-22] MEDS: REFRESH CELLUVISC 1% Eye Drops 0.4ml EACH EYE SCH (08:45)
[2016-12-22] MEDS: LUTEIN 20 MG CAPSULE PO SCH (08:45)
[2016-12-22] MEDS: POLYETHYL GLYCOL 3350 17gm PACKET PO SCH (08:45)
[2016-12-22] MEDS: ASPIRIN *EC* 81 MG TABLET PO SCH (08:45)
[2016-12-22] MEDS: SENNA + DOCUSATE TABLET PO SCH ×2 (08:45→20:18)
--- NOTE | 2016-12-22 09:44 | Progress Note ---
- Date 12/22/16 Subjective: Patient was seen sitting at the breakfast table. He says he feels well. Other than the pain in his leg he has no complaints. He's had no chest pain or shortness of breath. In talking with him, some of his answers do not make sense , but overall, he tracks pretty well with conversation. He states he didn't sleep well. He wants to go home. Objective Vital signs: Temperature 98.4 F 12/22/16 07:29 Pulse Rate 95 12/22/16 07:29 Respiratory Rate 16 12/22/16 07:29 Blood Pressure 153/77 H 12/22/16 07:29 Pulse Oximetry 92 12/22/16 07:29 Height/Weight/BMI: Height 1.78 m Weight 72 kg Body Mass Index 22.7 - Constitutional Present: no acute distress, well nourished, well developed - Routine HEENT Exam Head: Present: normocephalic - Routine Respiratory Exam Present: CTA bilaterally. Absent: wheezes - Routine Cardiovascular Exam Present: RRR, S1, S2. Absent: murmur - Routine Abdominal Exam Present: soft, normoactive bowel sounds, non distended. Absent: tenderness - Routine Extremities Exam Present: no edema (continued edema to right thigh.), normal capillary refill - Routine Skin Exam Present: dry, warm Comments: healing wounds to face. Ecchymosis on face resolving. - Routine Neurological Exam Present: alert, moving all extremities, normal speech - Routine Lymphatic Exam Lymphatic: Absent: adenopathy - Routine Psychiatric Exam Present: normal affect, cooperative Results - Labs CBC & Chem 7: 12/22/16 05:07 12/22/16 05:07 Assessment and Plan (1) Acute blood loss anemia Current visit: Yes Status: Acute Assessment and Plan: Assessment Anemia, acute on chronic post-op, present on admission. * History of prior blood transfusions without reactions. Hypocalcemia, acute, present on admission. S/P right hip surgical revision - Dr. Ramiro James, 12/14/16. Vascular dementia, chronic - history of post-op encephalopathy. Hypertension, chronic. Hypercholesterolemia, chronic. Nocturnal hypoxemia requiring supplemental oxygen at 2L, chronic. Peripheral vascular disease, chronic. Coronary artery disease with prior stent placement, chronic. History of TIAs affecting left eye, chronic. GERD, chronic. History of peptic ulcers, chronic. Constipation, chronic. BPH with chronic home self catheterizations - current Ng catheter present. History of urinary tract infections. Osteoarthritis, chronic. Allergic rhinitis, chronic. History of seizure disorder - most recent reported seizure was 07/2016. Stable posterior cerebral aneurysm, chronic. Plan Hemoglobin is stable. 8.1 this am compared to 7.2 yesterday am. 1 Unit PRBC's given yesterday. Repeat CBC tomorrow am. Based on measurements of the thigh, he's had some decrease in swelling to the upper thigh and an increase in the lower aspect. This could be explained by him being up more with therapy. Remove james tomorrow if wound looks healed. Pain is controlled. Hospital Course Summary Disclaimer: The visit summary below is not to be considered part of the above Progress Note. Hospital Course: Assessment Anemia, acute on chronic post-op, present on admission. * History of prior blood transfusions without reactions. Hypocalcemia, acute, present on admission. S/P right hip surgical revision - Dr. Ramiro James, 12/14/16. Vascular dementia, chronic - history of post-op encephalopathy. Hypertension, chronic. Hypercholesterolemia, chronic. Nocturnal hypoxemia requiring supplemental oxygen at 2L, chronic. Peripheral vascular disease, chronic. Coronary artery disease with prior stent placement, chronic. History of TIAs affecting left eye, chronic. GERD, chronic. History of peptic ulcers, chronic. Constipation, chronic. BPH with chronic home self catheterizations - current Ng catheter present. History of urinary tract infections. Osteoarthritis, chronic. Allergic rhinitis, chronic. History of seizure disorder - most recent reported seizure was 07/2016. Stable posterior cerebral aneurysm, chronic. Plan-12/20/16 (Consult). Agree with admission to IRU under the guided care of Dr. Bernal for continued rehabilitation and therapies. Pain control per Dr. Bernal. Continue bowel motivation with senna plus and miralax daily. Hemoglobin on admission was 6.9 (s/p transfusion of 1 unit PRBC prior to arrival ). Repeat CBC revealed slight improvement at 7.6 without additional treatment. Will continue to monitor closely. In light of the patient's history of severe anemia with known CAD and vascular dementia, will type and cross and give 1 unit now. Recheck hemoglobin following transfusion. Patient remains asymptomatic. Will obtain B12, folate and iron for further evaluation given chronic anemia. Continue home medications. Monitor closely for seizure activity and continue to provide safe and supportive environment. Review of records from [facility] [place] indicated home terazosin 1mg daily was discontinued during his hospitalization. Will restart his terazosin 1mg daily for hypertension and BPH. Monitor blood pressure closely as it has been elevated since admission with systolic pressures in 170's-180's. History of nocturnal hypoxemia. Will provide oxygen at 2L NC at night and as needed PRN. Would recommend night oximetry evaluation prior to discharge. Encourage incentive spirometry for pulmonary toileting. Chronic thromboprophylaxis with Plavix and ASA given CAD. Monitor closely for signs of bleeding given anemia. Will check fecal hemocele for further evaluation fo anemia as he has required multiple transfusions since surgery. Continue Prilosec for GERD and GI protection. UA results from admission to [facility] [place] on 12/14 revealed 5-10 WBC with numerous bacteria. In light of chronic self-catheterizing, expect pyuria is secondary to colonization. Patient remains afebrile without complaints. Will hold off on UA and antibiotic treatment at this time. Monitor closely for signs of infection. Monitor hip incision closely for signs of infection. Daily dressing changes. Removal of stables to hip between 12/21 and 12/[address]i-strips. Patient may shower when wound is no longer draining; no tub baths. Patient to follow up with Dr. James the week on 01/16 for post-op evaluation. Upon discharge, patient's care will be returned to his PCP, Dr. Fab Vasquez. 12/21/16 --Patient was transfused 1 unit of PRBCs this morning making this his fifth unit of blood since surgery on 12/14/16. His hemoglobin last evening was 7.7 and this morning was 7.2. Following his transfusion this morning it was 8.4. This evening it was up to 9.0. Will recheck again in the a.m. --Nurses have measured circumference of his thigh just above the knee and just below his wound. Will repeat measurements this evening and again in the morning to determine if he could be having bleeding in this area. --Patient was receiving two [place] 10/325 PRN pain. Daughters feel like this is too much for him. Will change this to 1 pill every 6 hours PRN and schedule acetaminophen 500 mg 4 times a day routinely. His pain has been decently controlled. --Remove james tomorrow or the following day. --Overall he is doing very well. He wants to go home. 12/22/16 Hemoglobin is stable. 8.1 this am compared to 7.2 yesterday am. 1 Unit PRBC's given yesterday. Repeat CBC tomorrow am. Based on measurements of the thigh, he's had some decrease in swelling to the upper thigh and an increase in the lower aspect. This could be explained by him being up more with therapy. Remove james tomorrow if wound looks healed. Pain is controlled.
[2016-12-22] MEDS: CYCLOBENZAPRINE 10 MG TABLET PO PRN ×2 (12:00→16:01)
--- NOTE | 2016-12-22 13:34 | IRU Progress Note ---
- Subjective/Serverity of Illness Mr. Troy was evaluated in his room on the IRU. He desperately would like to go home. He says his can take care of him. However it is known that she has had a recent medical procedure and she will not really be able to provide much in the way of assistance. Unfortunately he does have reduced memory is evident and this will be an impediment as well. With regard to therapy, he continues to improve and is involved although has several more goals he needs to meet before he will be able to safely go home. I am not certain that he is cognizant of this nor am I certain that he has good judgment. Pain continues to be an issue but much of this I think is related to the fact that he does not recall that he has just had a pain pill. Update on medical issues 1. Recent surgery involving the right hip: Continues to complain of pain in the hip. No evidence of surgical site infection. Tolerates therapy well. 2. Acute blood loss anemia in the postoperative timeframe: Hemoglobin has been monitored. It was initially 7.7 then 9 now 8.1. Seems to be stable in this regard. No evidence of active bleeding at present. 3. Partial seizure: He has had no evidence of recurrent seizure. Most recent one was just a few months ago however. 4. Nocturnal hypoxemia: He is getting by on room air during the daytime with saturations around 92-93% on room air. 5. Dementia with acute toxic delirium in the immediate postoperative timeframe. He does have memory loss. His acute delirium has resolved however. 6. Underlying coronary artery disease status post stent placement. He has had no chest discomfort and no significant dyspnea with his activities here on the unit. Exam Vital Signs: Temperature 98.4 F 12/22/16 07:29 Pulse Rate 95 12/22/16 07:29 Respiratory Rate 18 12/22/16 09:52 Blood Pressure 153/77 H 12/22/16 07:29 Pulse Oximetry 92 12/22/16 07:29 Height/Weight/BMI: Height 1.78 m Weight 72 kg Body Mass Index 22.7 Comments: The patient is awake, alert and in no acute distress. I'm not certain he is fully oriented however. He does realize that he is in the hospital and he states that he would like to go home. Pupils are equal. The neck is supple. Chest: Clear to auscultation bilaterally. Cor: RR with no gallop, click nor murmur Abd: soft with normo-active bowel sounds. There are no masses, no tenderness and no guarding. Extremities: No edema is noted. Results IRU - Labs Labs: Labs are reviewed including his hemoglobin. IRU A/P (1) Hip fracture, right Qualifiers: Encounter type: subsequent encounter Fracture type: closed Fracture healing: with routine healing Qualified Code(s): S72.001D - Fracture of unspecified part of neck of right femur, subsequent encounter for closed fracture with routine healing Current visit: Yes Status: Acute Continues to progress with physical therapy and occupational therapy. Still has significant goals to me before safe transition to home occurs. Does have discomfort. (2) Hypertension Qualifiers: Hypertension type: essential hypertension Qualified Code(s): I10 - Essential (primary) hypertension Current visit: Yes Status: Chronic His blood pressure remains a bit elevated at the present time. This is likely related to underlying anxiety and his confusion as well as pain. This will be monitored carefully and will adjust medications if needed. (3) Acute blood loss anemia Current visit: Yes Status: Acute Hemoglobin had dropped a bit 8.1. However it is improved since initial measurement. Denies any lightheadedness. We will monitor this carefully. No evidence of active bleeding. (4) Nocturnal hypoxemia Current visit: Yes Status: Chronic His daytime saturations are 92-93% on room air. (5) Partial seizure disorder Current visit: Yes Status: Chronic (6) ASHD (arteriosclerotic heart disease) Current visit: Yes Status: Chronic DVT Prophylaxis: SCD's, Lovenox Resuscitation Status: Full Code - Course Hospital Course: Maxwell Bernal MD: 12/22/16 13:35 He is cooperative with therapy. He would like to go home. Comprehension/judgment is impaired due to his underlying dementia. He denies any chest pains. Blood pressures are running a bit high and these will be monitored carefully. - Interventions to Obtain Goals PT Treatment Plan: Balance/Proprioception, Functional Activities, Gait Training , Patient/Family Education, Therapeutic Exercise OT Treatment Plan: ADL (Basic Care), Balance Training, Pt./Family Education, Ther. Exercise for ADL Goals Progress/Modifications: Time spent with patient and on floor reviewing data and documentin min Barriers to dismissal: Pain, endurance, balance, comprehension Medical decision-making: I reviewed his overall medical situation. I feel it is safe to continue therapy at this time. His hemoglobin, while it is a bit lower, is stable overall. There is no evidence of ongoing bleeding. His blood pressures however running a bit high. These will be monitored carefully. If they continue we will adjust medications. I imagine they are of due to his pain and confusion. He is cooperative with therapy and is slowly improving.
--- NOTE | 2016-12-22 14:57 | IRU Plan of Care ---
[facility] Overall Plan of Care - Date Date: 12/22/16 - Patient Impairments (1) Acute blood loss anemia Code(s): D62 - Acute posthemorrhagic anemia Status: Acute Classification: Present on IRF Admission, IRF Tx That Should Address Diagnosis, Diagnosis Requiring Medical Follow Up (2) Hip fracture, right Qualifiers: Encounter type: subsequent encounter Fracture type: closed Fracture healing: with routine healing Qualified Code(s): S72.001D - Fracture of unspecified part of neck of right femur, subsequent encounter for closed fracture with routine healing Code(s): S72.001A - Fracture of unspecified part of neck of right femur, initial encounter for closed fracture Status: Acute Classification: Present on IRF Admission, IRF Tx That Should Address Diagnosis, Diagnosis Requiring Medical Follow Up (3) Nocturnal hypoxemia Code(s): 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 Classification: Present on IRF Admission, Diagnosis Requiring Medical Follow Up (4) Hypertension Qualifiers: Hypertension type: essential hypertension Qualified Code(s): I10 - Essential (primary) hypertension Code(s): I10 - Essential (primary) hypertension Status: Chronic Classification: Present on IRF Admission, Diagnosis Requiring Medical Follow Up (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 Certification: I certify the patient for rehabilitation. - Medical Prognosis Medical Prognosis: Good Vital Signs: Last Vital Signs Temp 98.4 F 12/22/16 07:29 Pulse 95 12/22/16 07:29 Resp 18 12/22/16 09:52 BP 153/77 H 12/22/16 07:29 Pulse Ox 92 12/22/16 07:29 - Anticipated Interventions Anticipated Interventions: The patient requires inpatient IRF care for PT, OT, and/or ST for residuals remaining from hip fracture resulting in muscular weakness and strength deficits. ROM Deficit: Right Lower Extremity Strength Deficits: Right Lower Extremity - Current Functional Status Failed Alternative Therapy: Arrived from Acute Care Patient Requires: The patient requires oversight by rehabilitation physician to manage their rehabilitation treatment plan and multidisciplinary approach to care that can only be provided in an IRF and requires a multidisciplinary approach to care, provided by professional PTs, OTs, STs, rehabilitation nurses, and may require STs, dieticians, and RTS. This is not available in lesser levels of care. Physical Therapy Minutes: 90 Occupational Therapy Minutes: 90 Therapy: The patient is to receive therapy at least 5 days a week. - Anticipated LOS/Outcomes Anticipated Functional Outcome: It is anticipated the patient will be able to return to his home with modified independent level of functioning for most ADLs. Anticipated Length of Stay (days): 7 Anticipated DC Destination: Home, Self Care, Home Health Service Home Safety Plan: The patient will be provided with the development of a Home Safety Plan for return to a home or home-like environment and and to ensure safety post discharge. - Plan to Avoid Complications Barriers to Attaining Goals: Weakness, Balance, Endurance, Pain Control Plan to Avoid Complications: The patient cannot receive this care in a lesser intensive setting such as [facility] or Outpatient Therapy due to the patient requiring the following : Close monitoring of lightheadedness, hemoglobin, blood pressures as well as observation of wound for any evidence of infection. His cognition is reduced which requires 24-hour nursing monitoring for safety and to prevent falls .
[2016-12-22] MEDS: ATORVASTATIN 20 MG TABLET PO SCH (20:16)
[2016-12-22] MEDS: MIRTAZAPINE 30 MG TABLET PO SCH (20:17)
[2016-12-22] MEDS: TERAZOSIN 1 MG CAPSULE PO SCH (20:17)
[2016-12-22] MEDS: FINASTERIDE 5 MG TABLET PO SCH (20:18)
[2016-12-22] MEDS: SALINE FLUSH 10ml SYRINGE IV PRN (22:12)
[2016-12-23] MEDS: LORATADINE 10 MG TABLET PO SCH ×2 (05:17→06:06)
[2016-12-23] MEDS: OMEPRAZOLE 20 MG CAPSULE PO SCH ×2 (05:18→06:06)
[2016-12-23] MEDS: HYDROCODONE/APAP 10 MG/325 MG TABLET PO PRN ×4 (07:22→20:16)
[2016-12-23] MEDS: SENNA + DOCUSATE TABLET PO SCH ×2 (09:13→20:16)
[2016-12-23] MEDS: LUTEIN 20 MG CAPSULE PO SCH (09:13)
[2016-12-23] MEDS: ACETAMINOPHEN 500 MG TABLET PO SCH ×4 (09:13→20:17)
[2016-12-23] MEDS: ASPIRIN *EC* 81 MG TABLET PO SCH (09:13)
[2016-12-23] MEDS: OMEGA-3 ACID ESTERS 1 GM CAPSULE PO SCH (09:14)
[2016-12-23] MEDS: REFRESH CELLUVISC 1% Eye Drops 0.4ml EACH EYE SCH (09:14)
[2016-12-23] MEDS: LACOSAMIDE 100mg TABLET PO SCH ×2 (09:14→20:16)
[2016-12-23] MEDS: POLYETHYL GLYCOL 3350 17gm PACKET PO SCH (09:17)
[2016-12-23] MEDS ORDERED: IRON - PHARMACY CONSULT MC ONE (10:38)
--- NOTE | 2016-12-23 10:39 | Progress Note ---
- Date 12/23/16 Subjective: Patient seen today sitting at the breakfast table. He is asleep sitting at the table and arouses to light touch in his name. He dozes off frequently during his interview. Nurse reports he slept well last night. He has no complaints of chest pain or shortness of breath, nausea or vomiting. The pain in his hip is controlled. He has no complaints. Objective Vital signs: Temperature 98.5 F 12/22/16 21:57 Pulse Rate 82 12/23/16 08:54 Respiratory Rate 20 12/23/16 09:53 Blood Pressure 80/44 12/23/16 08:54 Pulse Oximetry 85 L 12/23/16 08:54 Height/Weight/BMI: Height 1.78 m Weight 72 kg Body Mass Index 22.7 - Constitutional Present: no acute distress, thin - Routine HEENT Exam Head: Present: normocephalic - Routine Respiratory Exam Present: CTA bilaterally. Absent: wheezes - Routine Cardiovascular Exam Present: RRR, S1, S2. Absent: murmur - Routine Abdominal Exam Present: soft, normoactive bowel sounds, non distended. Absent: tenderness - Routine Extremities Exam Present: edema (continues to have edema of the hip and thigh, no edema in the feet and ankles), normal capillary refill - Routine Skin Exam Present: dry, warm - Routine Neurological Exam Absent: alert (drowsy), tremors - Routine Lymphatic Exam Lymphatic: Absent: adenopathy - Routine Psychiatric Exam Present: normal affect Results - Labs CBC & Chem 7: 12/23/16 04:35 12/23/16 04:35 Assessment and Plan (1) Acute blood loss anemia Current visit: Yes Status: Acute Assessment and Plan: Assessment Anemia, acute on chronic post-op, present on admission. * History of prior blood transfusions without reactions. Hypocalcemia, acute, present on admission. S/P right hip surgical revision - Dr. Ramiro James, 12/14/16. Vascular dementia, chronic - history of post-op encephalopathy. Hypertension, chronic. Hypercholesterolemia, chronic. Nocturnal hypoxemia requiring supplemental oxygen at 2L, chronic. Peripheral vascular disease, chronic. Coronary artery disease with prior stent placement, chronic. History of TIAs affecting left eye, chronic. GERD, chronic. History of peptic ulcers, chronic. Constipation, chronic. BPH with chronic home self catheterizations History of urinary tract infections. Osteoarthritis, chronic. Allergic rhinitis, chronic. History of seizure disorder - most recent reported seizure was 07/2016. Stable posterior cerebral aneurysm, chronic. Plan Hemoglobin is stable at 8.1, repeat CBC in a.m. DC Ng catheter. He is independent enough at this point that he can likely go back to self catheterization. Remove james today. Start B12 supplementation for vitamin B12 deficiency. Start B12 1000 g injections daily 7 days then weekly 4 weeks then monthly. Will consult pharmacy to give IV iron given his iron deficiency based on his recent labs. Hospital Course Summary Disclaimer: The visit summary below is not to be considered part of the above Progress Note. Hospital Course: Assessment Anemia, acute on chronic post-op, present on admission. * History of prior blood transfusions without reactions. Hypocalcemia, acute, present on admission. S/P right hip surgical revision - Dr. Ramiro James, 12/14/16. Vascular dementia, chronic - history of post-op encephalopathy. Hypertension, chronic. Hypercholesterolemia, chronic. Nocturnal hypoxemia requiring supplemental oxygen at 2L, chronic. Peripheral vascular disease, chronic. Coronary artery disease with prior stent placement, chronic. History of TIAs affecting left eye, chronic. GERD, chronic. History of peptic ulcers, chronic. Constipation, chronic. BPH with chronic home self catheterizations - current Ng catheter present. History of urinary tract infections. Osteoarthritis, chronic. Allergic rhinitis, chronic. History of seizure disorder - most recent reported seizure was 07/2016. Stable posterior cerebral aneurysm, chronic. Plan-12/20/16 (Consult). Agree with admission to IRU under the guided care of Dr. Bernal for continued rehabilitation and therapies. Pain control per Dr. Bernal. Continue bowel motivation with senna plus and miralax daily. Hemoglobin on admission was 6.9 (s/p transfusion of 1 unit PRBC prior to arrival ). Repeat CBC revealed slight improvement at 7.6 without additional treatment. Will continue to monitor closely. In light of the patient's history of severe anemia with known CAD and vascular dementia, will type and cross and give 1 unit now. Recheck hemoglobin following transfusion. Patient remains asymptomatic. Will obtain B12, folate and iron for further evaluation given chronic anemia. Continue home medications. Monitor closely for seizure activity and continue to provide safe and supportive environment. [place] [facility] terazosin 1mg daily was discontinued during his hospitalization. Will restart his terazosin 1mg daily for hypertension and BPH. Monitor blood pressure closely as it has been elevated since admission with systolic pressures in 170's-180's. History of nocturnal hypoxemia. Will provide oxygen at 2L NC at night and as needed PRN. Would recommend night oximetry evaluation prior to discharge. Encourage incentive spirometry for pulmonary toileting. Chronic thromboprophylaxis with Plavix and ASA given CAD. Monitor closely for signs of bleeding given anemia. Will check fecal hemocele for further evaluation fo anemia as he has required multiple transfusions since surgery. Continue Prilosec for GERD and GI protection. UA results from [place] [facility] [place] revealed 5-10 WBC with numerous bacteria. In light of chronic self-catheterizing, expect pyuria is secondary to colonization. Patient remains afebrile without complaints. Will hold off on UA and antibiotic treatment at this time. Monitor closely for signs of infection. Monitor hip incision closely for signs of infection. Daily dressing changes. Removal of stables to hip between 12/21 and 12/[address]i-strips. Patient may shower when wound is no longer draining; no tub baths. Patient to follow up with Dr. James the week on 01/16 for post-op evaluation. Upon discharge, patient's care will be returned to his PCP, Dr. Fab Vasquez. 12/21/16 --Patient was transfused 1 unit of PRBCs this morning making this his fifth unit of blood since surgery on 12/14/16. His hemoglobin last evening was 7.7 and this morning was 7.2. Following his transfusion this morning it was 8.4. This evening it was up to 9.0. Will recheck again in the a.m. --Nurses have measured circumference of his thigh just above the knee and just below his wound. Will repeat measurements this evening and again in the morning to determine if he could be having bleeding in this area. --Patient was receiving two [place] 10/325 PRN pain. Daughters feel like this is too much for him. Will change this to 1 pill every 6 hours PRN and schedule acetaminophen 500 mg 4 times a day routinely. His pain has been decently controlled. --Remove james tomorrow or the following day. --Overall he is doing very well. He wants to go home. 12/22/16 Hemoglobin is stable. 8.1 this am compared to 7.2 yesterday am. 1 Unit PRBC's given yesterday. Repeat CBC tomorrow am. Based on measurements of the thigh, he's had some decrease in swelling to the upper thigh and an increase in the lower aspect. This could be explained by him being up more with therapy. Remove james tomorrow if wound looks healed. Pain is controlled. 12/23/16 Hemoglobin is stable at 8.1, repeat CBC in a.m. DC Ng catheter. He is independent enough at this point that he can likely go back to self catheterization. Remove james today. Start B12 supplementation for vitamin B12 deficiency. Start B12 1000 g injections daily 7 days then weekly 4 weeks then monthly. Will consult pharmacy to give IV iron given his iron deficiency based on his recent labs.
[2016-12-23] MEDS ORDERED: IRON DEXTRAN COMPLEX 100mg/2ml INJECTION IV ONE (11:33)
[2016-12-23] MEDS ORDERED: NS IV ONE (14:27)
[2016-12-23] MEDS ORDERED: IRON DEXTRAN IV ONE (14:27)
--- NOTE | 2016-12-23 14:29 | IRU Progress Note ---
- Subjective/Serverity of Illness Mr. Troy was reassessed in his room today. He seems to be actually a bit more oriented. He reports that he would like to get back home but he understands since he still has some progress to make. Does have discomfort in the hip as anticipated. He denies any shortness of breath or sputum. Most recent hemoglobin was stable at 8.1. He denies any cough at present. Continues to be constipated. I do not see any charting of bowel movements. He is taking MiraLAX daily, senna plus Colace twice daily as well as milk of magnesia as needed. Denies any abdominal pain at present. I have reviewed therapy notes. He is participating with therapy. However he does have poor safety awareness likely related to his cognition situation. Exam Vital Signs: Temperature 98.4 F 12/23/16 14:12 Pulse Rate 70 12/23/16 14:12 Respiratory Rate 16 12/23/16 14:12 Blood Pressure 99/55 12/23/16 14:12 Pulse Oximetry 99 12/23/16 14:12 Height/Weight/BMI: Height 1.78 m Weight 72 kg Body Mass Index 22.7 Comments: The patient is awake, alert and oriented and in no acute distress. Pupils are equal. The neck is supple. Chest: Clear to auscultation bilaterally. Cor: RR with no gallop, click nor murmur Abd: soft with normo-active bowel sounds. There are no masses, no tenderness and no guarding. Extremities: No edema is noted. There are good pulses in both ankles. No cyanosis is present. IRU A/P (1) Acute blood loss anemia Current visit: Yes Status: Acute Hemoglobin stable at 8.1 the last 2 days. No obvious source of continued bleeding. (2) Hip fracture, right Qualifiers: Encounter type: subsequent encounter Fracture type: closed Fracture healing: with routine healing Qualified Code(s): S72.001D - Fracture of unspecified part of neck of right femur, subsequent encounter for closed fracture with routine healing Current visit: Yes Status: Acute Does have pain in the right hip as anticipated. He is progressing with therapy although has poor safety awareness and reduced endurance. (3) Nocturnal hypoxemia Current visit: Yes Status: Chronic (4) Hypertension Qualifiers: Hypertension type: essential hypertension Qualified Code(s): I10 - Essential (primary) hypertension Current visit: Yes Status: Chronic Blood pressures are running a bit on the low side. He is on terazocin at bedtime. Otherwise on no medications for his blood pressure. Likely his pressure is low due to the acute blood loss anemia. (5) Partial seizure disorder Current visit: Yes Status: Chronic (6) Constipation by delayed colonic transit Current visit: Yes Status: Acute He does have severe constipation. Likely this is related to pain medication usage. DVT Prophylaxis: SCD's, Lovenox Resuscitation Status: Full Code - Course Hospital Course: Maxwell Bernal MD: 12/22/16 13:35 He is cooperative with therapy. He would like to go home. Comprehension/judgment is impaired due to his underlying dementia. He denies any chest pains. Blood pressures are running a bit high and these will be monitored carefully. 12/23/16 14:31 At this point his blood pressures are running a bit low. His safety awareness is poor. He is cooperative with therapy and making progress. Hemoglobin is stable at 8.1. - Interventions to Obtain Goals PT Treatment Plan: Balance/Proprioception, Functional Activities, Gait Training , Patient/Family Education, Therapeutic Exercise OT Treatment Plan: ADL (Basic Care), Balance Training, Pt./Family Education, Ther. Exercise for ADL Goals Progress/Modifications: Time spent with patient and on floor reviewing data and documentin min Barriers to dismissal: Pain, anemia, safety awareness, endurance Medical decision-making: Patient is quite constipated. He is on a number of medications for this. I'm sure the pain medication is making things worse. We will offer an enema or suppository as another option. In addition, his blood pressures are running a bit low. His hemoglobin is stable at 8.1. No changes recommended at present with regard to medications other than adding on suppository and enema as needed.
[2016-12-23] MEDS ORDERED: BISACODYL 10 MG SUPPOSITORY RECTALLY PRN (14:33)
[2016-12-23] MEDS ORDERED: FLEET PHOSPHO - SODA ENEMA 133ml PR PRN (14:34)
[2016-12-23] MEDS: TERAZOSIN 1 MG CAPSULE PO SCH (20:15)
[2016-12-23] MEDS: MIRTAZAPINE 30 MG TABLET PO SCH (20:15)
[2016-12-23] MEDS: FINASTERIDE 5 MG TABLET PO SCH (20:16)
[2016-12-23] MEDS: ATORVASTATIN 20 MG TABLET PO SCH (20:16)
[2016-12-23] MEDS: ALPRAZolam 0.5 MG TABLET PO PRN (20:27)
[2016-12-24] MEDS: HYDROCODONE/APAP 10 MG/325 MG TABLET PO PRN ×5 (03:51→22:28)
[2016-12-24] MEDS: LORATADINE 10 MG TABLET PO SCH (06:39)
[2016-12-24] MEDS: OMEPRAZOLE 20 MG CAPSULE PO SCH (06:40)
[2016-12-24] MEDS: ASPIRIN *EC* 81 MG TABLET PO SCH (10:30)
[2016-12-24] MEDS: OMEGA-3 ACID ESTERS 1 GM CAPSULE PO SCH (10:30)
[2016-12-24] MEDS: LUTEIN 20 MG CAPSULE PO SCH (10:30)
[2016-12-24] MEDS: SENNA + DOCUSATE TABLET PO SCH ×2 (10:31→20:12)
[2016-12-24] MEDS: LACOSAMIDE 100mg TABLET PO SCH ×2 (10:31→20:12)
[2016-12-24] MEDS: REFRESH CELLUVISC 1% Eye Drops 0.4ml EACH EYE SCH (10:32)
[2016-12-24] MEDS: ACETAMINOPHEN 500 MG TABLET PO SCH ×4 (10:32→20:13)
[2016-12-24] MEDS: POLYETHYL GLYCOL 3350 17gm PACKET PO SCH (10:33)
[2016-12-24] MEDS: CYANOCOBALAMIN (B-12) 1,000mcg/ml INJECTION IM SCH (18:50)
[2016-12-24] MEDS: ALPRAZolam 0.5 MG TABLET PO PRN (20:12)
[2016-12-24] MEDS: FINASTERIDE 5 MG TABLET PO SCH (20:12)
[2016-12-24] MEDS: TERAZOSIN 1 MG CAPSULE PO SCH (20:12)
[2016-12-24] MEDS: MIRTAZAPINE 30 MG TABLET PO SCH (20:12)
[2016-12-24] MEDS: ATORVASTATIN 20 MG TABLET PO SCH (20:12)
[2016-12-25] MEDS: HYDROCODONE/APAP 10 MG/325 MG TABLET PO PRN ×5 (02:16→20:32)
[2016-12-25] MEDS: LORATADINE 10 MG TABLET PO SCH (06:21)
[2016-12-25] MEDS: OMEPRAZOLE 20 MG CAPSULE PO SCH (06:21)
[2016-12-25] MEDS: LUTEIN 20 MG CAPSULE PO SCH (10:03)
[2016-12-25] MEDS: SENNA + DOCUSATE TABLET PO SCH ×2 (10:03→20:35)
[2016-12-25] MEDS: OMEGA-3 ACID ESTERS 1 GM CAPSULE PO SCH (10:03)
[2016-12-25] MEDS: POLYETHYL GLYCOL 3350 17gm PACKET PO SCH (10:04)
[2016-12-25] MEDS: LACOSAMIDE 100mg TABLET PO SCH ×2 (10:04→20:34)
[2016-12-25] MEDS: ACETAMINOPHEN 500 MG TABLET PO SCH ×4 (10:04→20:35)
[2016-12-25] MEDS: ASPIRIN *EC* 81 MG TABLET PO SCH (10:05)
[2016-12-25] MEDS: REFRESH CELLUVISC 1% Eye Drops 0.4ml EACH EYE SCH (10:05)
[2016-12-25] MEDS: CYANOCOBALAMIN (B-12) 1,000mcg/ml INJECTION IM SCH (10:06)
[2016-12-25] MEDS: ALPRAZolam 0.5 MG TABLET PO PRN (20:32)
[2016-12-25] MEDS: FINASTERIDE 5 MG TABLET PO SCH (20:34)
[2016-12-25] MEDS: MIRTAZAPINE 30 MG TABLET PO SCH (20:34)
[2016-12-25] MEDS: ATORVASTATIN 20 MG TABLET PO SCH (20:34)
[2016-12-25] MEDS: TERAZOSIN 1 MG CAPSULE PO SCH (20:35)
[2016-12-26] MEDS: HYDROCODONE/APAP 10 MG/325 MG TABLET PO PRN ×5 (00:57→20:00)
[2016-12-26] MEDS: LORATADINE 10 MG TABLET PO SCH ×2 (05:20→09:23)
[2016-12-26] MEDS: OMEPRAZOLE 20 MG CAPSULE PO SCH ×2 (05:20→09:24)
[2016-12-26] MEDS: SENNA + DOCUSATE TABLET PO SCH ×2 (09:31→20:00)
[2016-12-26] MEDS: OMEGA-3 ACID ESTERS 1 GM CAPSULE PO SCH (09:32)
[2016-12-26] MEDS: ACETAMINOPHEN 500 MG TABLET PO SCH ×2 (09:32→15:16)
[2016-12-26] MEDS: LUTEIN 20 MG CAPSULE PO SCH (09:32)
[2016-12-26] MEDS: LACOSAMIDE 100mg TABLET PO SCH ×2 (09:32→20:00)
[2016-12-26] MEDS: ASPIRIN *EC* 81 MG TABLET PO SCH (09:33)
[2016-12-26] MEDS: REFRESH CELLUVISC 1% Eye Drops 0.4ml EACH EYE SCH (09:33)
[2016-12-26] MEDS: POLYETHYL GLYCOL 3350 17gm PACKET PO SCH (09:33)
[2016-12-26] MEDS: CYANOCOBALAMIN (B-12) 1,000mcg/ml INJECTION IM SCH (09:34)
--- NOTE | 2016-12-26 10:29 | IRU Progress Note ---
- Subjective/Serverity of Illness Mr. Troy was evaluated in his room on the rehabilitation unit. He continues to cooperate with therapy. Has pain in the hip as anticipated. He is receiving pain medications which seem to hold him adequately. He is getting 1 about every 4 hours. He rates his pain as a 7 out of 10 in intensity. Seems to be much more awake and alert. He states that he is doing self catheterizations and has not been able to urinate on his own here in the hospital. He is having a bowel movement he states about every other day. Update on medical issues 1. Recent surgery involving the right hip: He is tolerating therapy well. He does have pain in the hip and receiving pain medications every 4 hours. He is improving and cooperative with therapy. 2. Acute blood loss anemia in the postoperative timeframe: His hemoglobin remained stable upon recent evaluation. 3. Partial seizure: This seems stable and he has had no recurrence. 4. Nocturnal hypoxemia: Saturations are looking good. 5. Dementia with acute toxic delirium in the immediate postoperative timeframe. He does have memory loss. Seems to be reasonably awake alert and oriented at present. 6. Underlying coronary artery disease status post stent placement. Denies any cardiovascular symptoms at present. Exam Vital Signs: Temperature 97.8 F 12/25/16 21:24 Pulse Rate 81 12/25/16 21:28 Respiratory Rate 18 12/26/16 09:31 Blood Pressure 124/63 12/25/16 21:28 Pulse Oximetry 94 12/25/16 21:24 Height/Weight/BMI: Height 1.78 m Weight 67.6 kg Body Mass Index 22.7 Comments: The patient is awake, alert and reasonably well oriented and in no acute distress. Does have pain with ambulation. Pupils are equal. The neck is supple. Chest: Clear to auscultation bilaterally. Cor: RR with no gallop, click nor murmur Abd: soft with normo-active bowel sounds. There are no masses, no tenderness and no guarding. Extremities: No edema is noted. . Results IRU - Labs Labs: I have reviewed therapy notes. IRU A/P (1) Acute blood loss anemia Current visit: Yes Status: Acute Hemoglobin is remaining stable. (2) Hip fracture, right Qualifiers: Encounter type: subsequent encounter Fracture type: closed Fracture healing: with routine healing Qualified Code(s): S72.001D - Fracture of unspecified part of neck of right femur, subsequent encounter for closed fracture with routine healing Current visit: Yes Status: Acute He is progressing with therapy. He is cooperative. Does have pain in the hip as anticipated but it is being controlled by the hydrocodone. (3) Nocturnal hypoxemia Current visit: Yes Status: Chronic Seems to be stable in this regard. (4) Hypertension Qualifiers: Hypertension type: essential hypertension Qualified Code(s): I10 - Essential (primary) hypertension Current visit: Yes Status: Chronic (5) Partial seizure disorder Current visit: Yes Status: Chronic (6) Constipation by delayed colonic transit Current visit: Yes Status: Acute DVT Prophylaxis: SCD's, Lovenox Resuscitation Status: Full Code - Course Hospital Course: Maxwell Bernal MD: 12/22/16 13:35 He is cooperative with therapy. He would like to go home. Comprehension/judgment is impaired due to his underlying dementia. He denies any chest pains. Blood pressures are running a bit high and these will be monitored carefully. 12/23/16 14:31 At this point his blood pressures are running a bit low. His safety awareness is poor. He is cooperative with therapy and making progress. Hemoglobin is stable at 8.1. 12/26/16 10:29 He is cooperative with therapy. Hemoglobin is stable. Poor safety awareness. - Interventions to Obtain Goals PT Treatment Plan: Balance/Proprioception, Functional Activities, Gait Training , Patient/Family Education, Therapeutic Exercise OT Treatment Plan: ADL (Basic Care), Balance Training, Pt./Family Education, Ther. Exercise for ADL Goals Progress/Modifications: Time spent with patient and on floor reviewing data and documentin min Barriers to dismissal: Safety awareness, endurance Medical decision-making: No changes are recommended at present. His pain is adequately controlled.
--- NOTE | 2016-12-26 13:37 | IRU Team Meeting ---
IRU Team Meeting - Nursing Vital Signs: Vital Signs - 24 hr 12/25/16 16:00 12/25/16 21:21 12/25/16 21:24 Temperature 98.6 F 97.8 F Pulse Rate 73 71 Respiratory Rate 20 14 16 Blood Pressure 139/74 115/64 Pulse Oximetry 94 94 12/25/16 21:28 12/26/16 09:31 12/26/16 10:55 Temperature 97.6 F Pulse Rate 81 87 Respiratory Rate 18 16 Blood Pressure 124/63 147/67 H Pulse Oximetry 97 Current Medications: Acetaminophen (Tylenol) 500 mg PO QID [facility] Last Admin: 12/26/16 09:32 Dose: 500 mg Hydrocodone Bitart/Acetaminophen ([place] [address]) 1 tab PO Q4H PRN PRN Reason: Pain Last Admin: 12/26/16 09:31 Dose: 1 tab Alprazolam (Xanax) 0.5 mg PO BID PRN PRN Reason: Anxiety Last Admin: 12/25/16 20:32 Dose: 0.5 mg Artificial Tears (Refresh Celluvisc) 3 drop EACH EYE DAILY [facility] Last Admin: 12/26/16 09:33 Dose: 3 drop Aspirin (Ecotrin) 81 mg PO DAILY [facility] Last Admin: 12/26/16 09:33 Dose: 81 mg Atorvastatin Calcium (Lipitor) 20 mg PO HS [facility] Last Admin: 12/25/16 20:34 Dose: 20 mg Bisacodyl (Dulcolax) 10 mg RECTALLY DAILY PRN PRN Reason: Constipation Clopidogrel Bisulfate (Plavix) 75 mg PO DAILY [facility] Last Admin: 12/21/16 08:45 Dose: 75 mg Cyanocobalamin (Vit. B-12) 1,000 mcg IM DAILY [facility] Stop: 12/30/16 09:01 Last Admin: 12/26/16 09:34 Dose: 1,000 mcg Cyclobenzaprine HCl (Flexeril) 10 mg PO DAILY PRN PRN Reason: Muscle spasm Last Admin: 12/22/16 16:01 Dose: 10 mg Finasteride (Proscar) 5 mg PO HS [facility] Last Admin: 12/25/16 20:34 Dose: 5 mg Fluticasone Propionate (Flovent Diskus) 1 puff ORAL INH BID [facility] Last Admin: 12/26/16 09:35 Dose: 1 puff Fluticasone Propionate (Flonase) 2 spray EA NOSTRIL DAILY PRN PRN Reason: symptom of allergies Lacosamide (Vimpat) 100 mg PO BID [facility] Last Admin: 12/26/16 09:32 Dose: 100 mg Loratadine (Claritin) 10 mg PO ACB [facility] Last Admin: 12/26/16 09:23 Dose: Not Given Lutein () 20 mg PO DAILY [facility] Last Admin: 12/26/16 09:32 Dose: 20 mg Magnesium Hydroxide (Mom) 30 ml PO DAILY PRN PRN Reason: Constipation Mirtazapine (Remeron) 30 mg PO HS [facility] Last Admin: 12/25/16 20:34 Dose: 30 mg [id number] Ethyl Esters (Lovaza) 1 gm PO DAILY [facility] Last Admin: 12/26/16 09:32 Dose: 1 gm Omeprazole (Prilosec) 20 mg PO ACB [facility] Last Admin: 12/26/16 09:24 Dose: Not Given Polyethylene Glycol (Miralax) 17 gm PO DAILY [facility] Last Admin: 12/26/16 09:33 Dose: 17 gm Senna/Docusate Sodium (Senna Plus Tablet) 2 tab PO BID [facility] Last Admin: 12/26/16 09:31 Dose: 2 tab Sodium Chloride (Iv Flush) 10 - 80 ml IV PRN PRN PRN Reason: Flushing Last Admin: 12/22/16 22:12 Dose: 5 ml Sodium Chloride (Normal Saline) 500 ml IV PRN PRN Sodium Phosphate (Fleet Enema) 1 enema [place] PRN PRN Terazosin HCl (Hytrin) 1 mg PO [facility] Last Admin: 12/25/16 20:35 Dose: 1 mg Current Medical Issues: Acute blood loss anemia, dementia, urinary retention with use of straight catheterization by patient, history of seizures (most recent July 2016), history of nocturnal hypoxemia - improved Comments: I certify that I personally led the interdisciplinary team meeting and agree with comments, barriers and goals indicated. Team meeting was held in the patient's room with the patient and the following family members present: Patient alone Mr. Troy is making good progress with therapies. His blood count is stable. His oxygenation appears to be good. He is having bowel movements about every 2-3 days. He is doing self catheterizations for his urinary retention. There has been no evidence of infection with no fever etc. He is taking pain pills about every 4 hours on a routine basis. - Physical Therapy Comments: Mr. Troy is independent with bed/chair/wheelchair transfers. He is functioning at a modified independent level over 1000 feet with ambulation. He is modified independent with 1 person assistance climbing 12 steps. He is standby assistance with 1 person assist for car transfers. Likely due to his dementia, he is unable to verbalize hip precautions. Nevertheless he does well demonstrating precautions with occasional verbal cuing for maintaining flexion at greater than 90. - Occupational Therapy Comments: Mr. Troy is independent with eating, standby assistance for grooming and upper body dressing. Lower body dressing is with contact-guard assistance. He is able to bathe with standby assistance. He refuses tub transfer. He is standby assistance with toileting assistance and toilet transfer. Additional family training is required prior to his dismissal. - Goals Goals: 1. Adhere to hip precautions during lower body dressing with supervision 2. [place] family training for safe transition to his home environment. - Barriers to Discharge Barriers to Attaining Goals: Other (safety awareness, hip precautions) - Care Plan Anticipated DC Destination: Home Health Service I have led this team conference and agree with the plan. Anticipated Length of Stay (days): 1
--- NOTE | 2016-12-26 18:05 | Progress Note ---
- Date 12/26/16 Subjective: Patient seen sitting in the dining room after breakfast. He has no complaints. Reports he is doing well. NO CP or SOA. No lightheadedness or dizziness. Pain is controlled. Bowels are moving. Objective Vital signs: Temperature 99.0 F 12/26/16 16:00 Pulse Rate 81 12/26/16 16:00 Respiratory Rate 16 12/26/16 16:00 Blood Pressure 142/75 H 12/26/16 16:00 Pulse Oximetry 95 12/26/16 16:00 Height/Weight/BMI: Height 1.78 m Weight 67.6 kg Body Mass Index 22.7 - Constitutional Present: no acute distress, well developed, thin - Routine Respiratory Exam Present: CTA bilaterally. Absent: wheezes - Routine Cardiovascular Exam Present: RRR. Absent: murmur - Routine Abdominal Exam Present: soft, normoactive bowel sounds, non distended. Absent: tenderness - Routine Extremities Exam Present: no edema, normal capillary refill - Routine Skin Exam Present: dry, warm - Routine Neurological Exam Present: alert, normal speech - Routine Lymphatic Exam Lymphatic: Absent: adenopathy - Routine Psychiatric Exam Present: normal affect Results - Labs CBC & Chem 7: 12/24/16 04:05 12/23/16 04:35 Assessment and Plan (1) Acute blood loss anemia Current visit: Yes Status: Acute Assessment and Plan: Assessment Anemia, acute on chronic post-op, present on admission. * History of prior blood transfusions without reactions. Hypocalcemia, acute, present on admission. S/P right hip surgical revision - Dr. Ramiro James, 12/14/16. Vascular dementia, chronic - history of post-op encephalopathy. Hypertension, chronic. Hypercholesterolemia, chronic. Nocturnal hypoxemia requiring supplemental oxygen at 2L, chronic. Peripheral vascular disease, chronic. Coronary artery disease with prior stent placement, chronic. History of TIAs affecting left eye, chronic. GERD, chronic. History of peptic ulcers, chronic. Constipation, chronic. BPH with chronic home self catheterizations History of urinary tract infections. Osteoarthritis, chronic. Allergic rhinitis, chronic. History of seizure disorder - most recent reported seizure was 07/2016. Stable posterior cerebral aneurysm, chronic. Plan Hemoglobin is gradually increasing. Overall doing well. No change in treatment plan. Hospital Course Summary Disclaimer: The visit summary below is not to be considered part of the above Progress Note. Hospital Course: Assessment Anemia, acute on chronic post-op, present on admission. * History of prior blood transfusions without reactions. Hypocalcemia, acute, present on admission. S/P right hip surgical revision - Dr. Ramiro James, 12/14/16. Vascular dementia, chronic - history of post-op encephalopathy. Hypertension, chronic. Hypercholesterolemia, chronic. Nocturnal hypoxemia requiring supplemental oxygen at 2L, chronic. Peripheral vascular disease, chronic. Coronary artery disease with prior stent placement, chronic. History of TIAs affecting left eye, chronic. GERD, chronic. History of peptic ulcers, chronic. Constipation, chronic. BPH with chronic home self catheterizations - current Ng catheter present. History of urinary tract infections. Osteoarthritis, chronic. Allergic rhinitis, chronic. History of seizure disorder - most recent reported seizure was 07/2016. Stable posterior cerebral aneurysm, chronic. Plan-12/20/16 (Consult). Agree with admission to IRU under the guided care of Dr. Bernal for continued rehabilitation and therapies. Pain control per Dr. Bernal. Continue bowel motivation with senna plus and miralax daily. Hemoglobin on admission was 6.9 (s/p transfusion of 1 unit PRBC prior to arrival ). Repeat CBC revealed slight improvement at 7.6 without additional treatment. Will continue to monitor closely. In light of the patient's history of severe anemia with known CAD and vascular dementia, will type and cross and give 1 unit now. Recheck hemoglobin following transfusion. Patient remains asymptomatic. Will obtain B12, folate and iron for further evaluation given chronic anemia. Continue home medications. Monitor closely for seizure activity and continue to provide safe and supportive environment. Review [facility] indicated home terazosin 1mg daily was discontinued during his hospitalization. Will restart his terazosin 1mg daily for hypertension and BPH. Monitor blood pressure closely as it has been elevated since admission with systolic pressures in 170's-180's. History of nocturnal hypoxemia. Will provide oxygen at 2L NC at night and as needed PRN. Would recommend night oximetry evaluation prior to discharge. Encourage incentive spirometry for pulmonary toileting. Chronic thromboprophylaxis with Plavix and ASA given CAD. Monitor closely for signs of bleeding given anemia. Will check fecal hemocele for further evaluation fo anemia as he has required multiple transfusions since surgery. Continue Prilosec for GERD and GI protection. UA results from admission to [facility] on 10/11 revealed 5-10 WBC with numerous bacteria. In light of chronic self-catheterizing, expect pyuria is secondary to colonization. Patient remains afebrile without complaints. Will hold off on UA and antibiotic treatment at this time. Monitor closely for signs of infection. Monitor hip incision closely for signs of infection. Daily dressing changes. Removal of stables to hip between 12/21 and 12/[address]i-strips. Patient may shower when wound is no longer draining; no tub baths. Patient to follow up with Dr. James the week on 01/16 for post-op evaluation. Upon discharge, patient's care will be returned to his PCP, Dr. Fab Vasquez. 12/21/16 --Patient was transfused 1 unit of PRBCs this morning making this his fifth unit of blood since surgery on 12/14/16. His hemoglobin last evening was 7.7 and this morning was 7.2. Following his transfusion this morning it was 8.4. This evening it was up to 9.0. Will recheck again in the a.m. --Nurses have measured circumference of his thigh just above the knee and just below his wound. Will repeat measurements this evening and again in the morning to determine if he could be having bleeding in this area. --Patient was receiving two [place] 10/325 PRN pain. Daughters feel like this is too much for him. Will change this to 1 pill every 6 hours PRN and schedule acetaminophen 500 mg 4 times a day routinely. His pain has been decently controlled. --Remove james tomorrow or the following day. --Overall he is doing very well. He wants to go home. 12/22/16 Hemoglobin is stable. 8.1 this am compared to 7.2 yesterday am. 1 Unit PRBC's given yesterday. Repeat CBC tomorrow am. Based on measurements of the thigh, he's had some decrease in swelling to the upper thigh and an increase in the lower aspect. This could be explained by him being up more with therapy. Remove james tomorrow if wound looks healed. Pain is controlled. 12/23/16 Hemoglobin is stable at 8.1, repeat CBC in a.m. DC Ng catheter. He is independent enough at this point that he can likely go back to self catheterization. Remove james today. Start B12 supplementation for vitamin B12 deficiency. Start B12 1000 g injections daily 7 days then weekly 4 weeks then monthly. Will consult pharmacy to give IV iron given his iron deficiency based on his recent labs. 12/26/16 Hemoglobin is gradually increasing. Overall doing well. No change in treatment plan.
[2016-12-26] MEDS: ALPRAZolam 0.5 MG TABLET PO PRN (20:00)
[2016-12-26] MEDS: MIRTAZAPINE 30 MG TABLET PO SCH (20:00)
[2016-12-26] MEDS: FINASTERIDE 5 MG TABLET PO SCH (20:00)
[2016-12-26] MEDS: TERAZOSIN 1 MG CAPSULE PO SCH (20:00)
[2016-12-26] MEDS: ATORVASTATIN 20 MG TABLET PO SCH (20:00)
[2016-12-27] MEDS: ACETAMINOPHEN 500 MG TABLET PO SCH ×6 (00:34→22:59)
[2016-12-27] MEDS: HYDROCODONE/APAP 10 MG/325 MG TABLET PO PRN ×5 (01:39→22:56)
[2016-12-27] MEDS: OMEPRAZOLE 20 MG CAPSULE PO SCH (05:49)
[2016-12-27] MEDS: LORATADINE 10 MG TABLET PO SCH (05:49)
[2016-12-27] MEDS: LACOSAMIDE 100mg TABLET PO SCH ×2 (08:26→20:51)
[2016-12-27] MEDS: OMEGA-3 ACID ESTERS 1 GM CAPSULE PO SCH (08:26)
[2016-12-27] MEDS: ASPIRIN *EC* 81 MG TABLET PO SCH (08:26)
[2016-12-27] MEDS: POLYETHYL GLYCOL 3350 17gm PACKET PO SCH (08:26)
[2016-12-27] MEDS: LUTEIN 20 MG CAPSULE PO SCH (08:26)
[2016-12-27] MEDS: SENNA + DOCUSATE TABLET PO SCH ×2 (08:26→20:51)
[2016-12-27] MEDS: REFRESH CELLUVISC 1% Eye Drops 0.4ml EACH EYE SCH (08:27)
[2016-12-27] MEDS: CYANOCOBALAMIN (B-12) 1,000mcg/ml INJECTION IM SCH (08:27)
--- NOTE | 2016-12-27 08:29 | Discharge Instructions ---
Discharge Plan - Med Rec/Dispo Referrals/Follow Up: Ramiro James MD [Other] (Dr. Amish James on 01/31/17 at 2:15 pm for Post-Op follow-up. [phone]. [id number] [facility], [address] [place] [address]) RADHA VASQUEZ [Family Provider] - (Dr. Wendy Vasquez on 01/03/17 at 1:00 pm for Hosp. follow-up. . [facility] [address] [place] [address]) Additional Instructions: You need to have a CBC checked at your follow up visit with your primary care provider. Prescriptions: New Terazosin [Hytrin] 1 mg PO HS #30 cap Cyanocobalamin (Vitamin B-12) [Vitamin B-12] 1 tab PO DAILY #30 tab PEG 3350 17gm PACKET [Miralax] 17 gm PO DAILY packet Continue Loratadine 10 mg PO DAILY #0 Omeprazole 20 mg PO ACB #0 Lutein 20 mg PO DAILY #0 ALPRAZolam [Xanax] 0.5 mg PO BID PRN PRN Reason: Anxiety Aspirin [Aspirin EC] 81 mg PO DAILY Lacosamide [Vimpat] 100 mg PO BID Artesian-3 Fatty Acids [Artesian-3] 1,000 mg PO DAILY Finasteride 5 mg PO HS #0 Fluticasone Propionate (Flonase 50 mcg/actuation Nasal [place]) 2 spray INH PRN PRN #0 PRN Reason: ALLERY SYMPTOMS Atorvastatin [Lipitor] 20 mg PO HS Carboxymethylcellulose [Methocel E 4 M] 3 drops EACH EYE DAILY Clopidogrel [Plavix] 75 mg PO DAILY Cyclobenzaprine [Flexeril] 10 mg PO DAILY PRN PRN Reason: Muscle Spasm Fluticasone [Flovent Diskus 50 mcg] 1 puff INH BID Mirtazapine [Remeron] 30 mg PO HS No Action Hydrocodone/APAP 10/325 [[place] 10/325] 1 tab PO Q4H PRN PRN Reason: Pain
--- NOTE | 2016-12-27 09:54 | IRU Progress Note ---
- Subjective/Serverity of Illness Mr. Troy is anxious to go home. Family is here for family training. They have some concerns about his appropriateness for going home at this time. We are asking them to observe therapy this morning and we'll discuss this further. The patient himself does not wish to go to a shelter or to an alternative facility. He would like to stay here on rehabilitation or go home. He would prefer to go home. His blood count is stable. He reports that he is doing self catheterizations without difficulty. Exam Vital Signs: Temperature 98.7 F 12/27/16 07:55 Pulse Rate 89 12/27/16 07:58 Respiratory Rate 20 12/27/16 07:55 Blood Pressure 107/67 12/27/16 07:58 Pulse Oximetry 92 12/27/16 07:55 Height/Weight/BMI: Height 1.78 m Weight 67.6 kg Body Mass Index 22.7 Comments: The patient is awake, alert and in no acute distress. Pupils are equal. The neck is supple. Chest: Clear to auscultation bilaterally. Cor: RR with no gallop, click nor murmur Abd: soft with normo-active bowel sounds. There are no masses, no tenderness and no guarding. Extremities: No edema is noted. There are good pulses in both ankles. No cyanosis is present. Results IRU - Labs Labs: Hemoglobin stable at 9.4. IRU A/P (1) Acute blood loss anemia Current visit: Yes Status: Acute His hemoglobin has remained stable without evidence of further blood loss noted. Denies any lightheadedness. (2) Hip fracture, right Qualifiers: Encounter type: subsequent encounter Fracture type: closed Fracture healing: with routine healing Qualified Code(s): S72.001D - Fracture of unspecified part of neck of right femur, subsequent encounter for closed fracture with routine healing Current visit: Yes Status: Acute Has the anticipated pain in the right hip but it is not worse at the present time and appears to be stable. Current pain management appears to be appropriate. (3) Nocturnal hypoxemia Current visit: Yes Status: Chronic (4) Hypertension Qualifiers: Hypertension type: essential hypertension Qualified Code(s): I10 - Essential (primary) hypertension Current visit: Yes Status: Chronic His blood pressures are stable at this time. (5) Partial seizure disorder Current visit: Yes Status: Chronic (6) Constipation by delayed colonic transit Current visit: Yes Status: Acute DVT Prophylaxis: SCD's, Lovenox Resuscitation Status: Full Code - Course Hospital Course: Maxwell Bernal MD: 12/22/16 13:35 He is cooperative with therapy. He would like to go home. Comprehension/judgment is impaired due to his underlying dementia. He denies any chest pains. Blood pressures are running a bit high and these will be monitored carefully. 12/23/16 14:31 At this point his blood pressures are running a bit low. His safety awareness is poor. He is cooperative with therapy and making progress. Hemoglobin is stable at 8.1. 12/26/16 10:29 He is cooperative with therapy. Hemoglobin is stable. Poor safety awareness. 12/27/16 09:53 Hemoglobin is stable. Family is here for training and assessment. We will visit with family after they have observed therapy. - Interventions to Obtain Goals PT Treatment Plan: Balance/Proprioception, Functional Activities, Gait Training , Patient/Family Education, Therapeutic Exercise OT Treatment Plan: ADL (Basic Care), Balance Training, Pt./Family Education, Ther. Exercise for ADL Goals Progress/Modifications: Have met with the family and with Marleni with care management. Family will observe his performance during therapy this morning and we'll discuss further about placement versus going home.
--- NOTE | 2016-12-27 14:49 | Progress Note ---
Progress Note: Mr. Troy's family was here for family training. Even though he demonstrates good strength, he requires many verbal cues. They do not feel it is safe for him to return home at this time. Mr. Troy is disappointed and upset. In addition , they request an assessment of Mr. Troy's mental capacity/memory. I have discussed with [facility] staff and we will consult Dr. Laurent in this regard.
[2016-12-27] MEDS: ALPRAZolam 0.5 MG TABLET PO PRN (16:40)
--- NOTE | 2016-12-27 19:11 | Neuropsychiatric Consult ---
[facility] HPI Date: 12/27/16 Reason for Consultation: Capacity Start Time: 17:00 Stop Time: 17:30 History of Present Illness: HPI: 86 Y/O CM seen in IRU after hip surgery. Pt was reportedly ready for D/C today but did not feel comfortable taking him home. On face to face the pt is some what labile and tearful at times. He states he planned to go home today but feels abandoned by his and is not sure why she wont take him home. He is a fairly good historian and is able to tell me what care he needs for his hip. He scored a 23 on his SLUMS and has some mild cognitive impairment. He denies any depression or S/I. STRESSORS: Pt states he was doing well until he found out he could not leave today. PSYCH ROS: Pt states he is frustrated by the situation but denies depression or anxiety. He denies david or psychosis. COLLATERAL: Spoke with daughter who is supportive. She states she has concerns about her dad going home safely due to his cognitive issues. She states he can be irritable and angry and impulsive at times and she worries he will not follow rehab directions and will harm himself. She states she does not feel her mother can take care of him at home and the family would like to look at a SNU or [place]. [facility] Patient Stated Medical History Dementia Yes Transient Ischemic Attacks ( Yes TIA) Hearing Loss Yes Other HEENT Yes: PVD with TIA affecting eye Coronary Artery Disease Yes Hypertension Yes Other Cardiology Yes: PVD Other Respiratory Yes: nocturnal hypoxemia Constipation Yes Hx Incontinence No Hx Urinary Tract Infection Yes: hx of Other Yes: bladder disorder with chronic strait caths at home. Ng currently Anemia Yes Osteoarthritis Yes Blood Transfusions Yes Other Behavioral Health Yes: dementia Medical History Updates: 1. ASHD status post 2 stent placements. 2. Partial seizure disorder with last seizure being July 2016. 3. Dementia. 4. Acute blood loss anemia. 5. Nocturnal hypoxemia. 6. Hypertension. 7. Osteoarthritis Surgical History: 1. Bilateral total knee replacements. 2. Remote history of right hip surgery. 3. More recent right hip revision. 4. Cataract procedure. 5. Back surgery. 6. Neck surgery. 7. Appendectomy. 8. Pacemaker placement. 9. Tonsillectomy and adenoidectomy. 10. Possible removal of lesion from liver, not characterized at present. - Social History Current residence: Apartment/Private Home Review of Systems - EENMT Balance: Absent: vertigo - Cardiovascular Vascular: Absent: Raynaud's, intermittent claudication - Genitourinary Genitourinary: Present: other (history of urinary retention with Ng present) Mental Status Exam Vitals: Last Vital Signs Temp 98.2 F 12/27/16 16:00 Pulse 92 12/27/16 16:00 Resp 22 12/27/16 16:00 BP 190/83 H 12/27/16 16:00 Pulse Ox 97 12/27/16 16:00 Height: 1.78 m Weight: 67.6 kg - Mental Status Exam Muscle Strength/Tone: Normal Dressing: Casual Grooming: Good Attitude: Guarded Motor Activity: Agitation Eye Contact: Fair Speech: Normal Volume: Normal Rhythm: Appropriate Rhythm Orientation: Oriented X4 Mood: Neutral Affect: Sad Rate of Thoughts: Delayed Thought Organization: Organized Associations: Intact Thought Content: Normal Perception/Psychotic: Perception Normal Fund of Knowledge: Poor fund of knowledge Memory: Poor-immediate Suicidal Ideation: None Homicidal Ideation: None Insight: Fair Judgement: Fair Impulse Control: Poor - Laboratory Result Diagrams: 12/27/16 04:10 12/23/16 04:35 Laboratory Results - last 24 hr 12/27/16 04:10 WBC 7.2 RBC 3.26 L Hgb 9.4 L Hct 30.6 L MCV 93.9 MCH 28.8 MCHC 30.7 L RDW Std Deviation 50.1 Plt Count 634 H MPV 8.7 L Immature Gran % (Auto) 0.3 Neut % (Auto) 56.1 Lymph % (Auto) 30.3 [place] % (Auto) 7.8 Eos % (Auto) 4.9 H Baso % (Auto) 0.6 Neut # (Auto) 4.1 Lymph # (Auto) 2.2 [place] # (Auto) 0.6 Eos # (Auto) 0.4 Baso # (Auto) 0.0 Abs Immat Gran (auto) 0.02 Assessment and Plan (1) Neurocognitive disorder Current visit: Yes Status: Acute Continue medical management. SW will work with family for possible SNU placement. At this time family does not feel pt is safe to return home. Pt does have some cognitive deficits and some impulse control issues and would probably be better going to a more structured environment initially than directly back home.
[2016-12-27] MEDS ORDERED: HALOPERIDOL 0.5 MG TABLET PO PRN (19:28)
[2016-12-27] MEDS: LORazepam 0.5 MG TABLET PO PRN (19:37)
[2016-12-27] MEDS: TERAZOSIN 1 MG CAPSULE PO SCH (20:50)
[2016-12-27] MEDS: ATORVASTATIN 20 MG TABLET PO SCH (20:51)
[2016-12-27] MEDS: MIRTAZAPINE 30 MG TABLET PO SCH (20:51)
[2016-12-27] MEDS: FINASTERIDE 5 MG TABLET PO SCH (20:51)
[2016-12-28] MEDS: HYDROCODONE/APAP 10 MG/325 MG TABLET PO PRN ×5 (02:46→20:51)
[2016-12-28] MEDS: LORazepam 0.5 MG TABLET PO PRN ×2 (04:15→20:50)
[2016-12-28] MEDS: LORATADINE 10 MG TABLET PO SCH (07:33)
[2016-12-28] MEDS: OMEPRAZOLE 20 MG CAPSULE PO SCH (07:33)
[2016-12-28] MEDS: LUTEIN 20 MG CAPSULE PO SCH (08:26)
[2016-12-28] MEDS: LACOSAMIDE 100mg TABLET PO SCH ×2 (08:26→20:50)
[2016-12-28] MEDS: ASPIRIN *EC* 81 MG TABLET PO SCH (08:27)
[2016-12-28] MEDS: OMEGA-3 ACID ESTERS 1 GM CAPSULE PO SCH (08:27)
[2016-12-28] MEDS: ACETAMINOPHEN 500 MG TABLET PO SCH ×4 (08:28→20:51)
[2016-12-28] MEDS: REFRESH CELLUVISC 1% Eye Drops 0.4ml EACH EYE SCH (08:28)
[2016-12-28] MEDS: POLYETHYL GLYCOL 3350 17gm PACKET PO SCH (08:28)
[2016-12-28] MEDS: SENNA + DOCUSATE TABLET PO SCH ×2 (08:29→20:50)
--- NOTE | 2016-12-28 13:25 | IRU Progress Note ---
- Subjective/Serverity of Illness Mr. Troy was evaluated on the acute inpatient rehabilitation unit. He continues to progress with therapy. Denies any significant new pain issues. Wound was inspected by the nurse and indicates that it is looking good. He has no nausea no vomiting. He would desperately like to go home. Arrangements are being made for placement. Has been evaluated by psychiatry. Appears though he does have some cognitive deficits and it is reported that he does not have capacity to make his own decisions. Exam Vital Signs: Temperature 98.9 F 12/28/16 08:00 Pulse Rate 88 12/28/16 08:00 Respiratory Rate 18 12/28/16 08:00 Blood Pressure 146/73 H 12/28/16 08:00 Pulse Oximetry 99 12/28/16 08:00 Height/Weight/BMI: Height 1.78 m Weight 67.6 kg Body Mass Index 22.7 Comments: The patient is awake, alert and oriented and in no acute distress. He does know where he is but does have memory issues and cognitive deficits as noted by the [facility] evaluation. Pupils are equal. The neck is supple. Chest: Clear to auscultation bilaterally. Cor: RR with no gallop, click nor murmur Abd: soft with normo-active bowel sounds. There are no masses, no tenderness and no guarding. Extremities: No edema is noted. IRU A/P (1) Acute blood loss anemia Current visit: Yes Status: Acute His blood count appears to be stable. (2) Hip fracture, right Qualifiers: Encounter type: subsequent encounter Fracture type: closed Fracture healing: with routine healing Qualified Code(s): S72.001D - Fracture of unspecified part of neck of right femur, subsequent encounter for closed fracture with routine healing Current visit: Yes Status: Acute Wound is looking good. Pain management is appropriate. 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 He would like to go home. Comprehension/judgment is impaired due to his underlying dementia. He denies any chest pains. Blood pressures are running a bit high and these will be monitored carefully. 12/23/16 14:31 At this point his blood pressures are running a bit low. His safety awareness is poor. He is cooperative with therapy and making progress. Hemoglobin is stable at 8.1. 12/26/16 10:29 He is cooperative with therapy. Hemoglobin is stable. Poor safety awareness. 12/27/16 09:53 Hemoglobin is stable. Family is here for training and assessment. We will visit with family after they have observed therapy. 12/28/16 13:24 He continues to work with therapy. Family present and working with care management regarding placement. - Interventions to Obtain Goals PT Treatment Plan: Balance/Proprioception, Functional Activities, Gait Training , Patient/Family Education, Therapeutic Exercise OT Treatment Plan: ADL (Basic Care), Balance Training, Pt./Family Education, Ther. Exercise for ADL
[2016-12-28] MEDS ORDERED: FALL RISK - PHARMACY CONSULT XX ONE (15:54)
[2016-12-28] MEDS: CYANOCOBALAMIN (B-12) 1,000mcg/ml INJECTION IM SCH (16:34)
--- NOTE | 2016-12-28 17:40 | Progress Note ---
<Nuvia Goodson V - Last Filed: 12/28/16 17:30> - Date 12/28/16 Subjective: Mr. Troy is seen this evening following phone call from nursing staff reporting 1 minute duration of left anterior chest pain. He reports this episode was at rest while talking with his family. This is not an uncommon type of chest pain for him. He states he has intermittent episodes frequently and sometimes it is relieved with nitroglycerin, however, other times it is not. I shortness of breath. GI complaints. He does have some postoperative hip pain however, he is tolerating that well. Objective Vital signs: Temperature 98.6 F 12/28/16 16:00 Pulse Rate 72 12/28/16 16:00 Respiratory Rate 18 12/28/16 16:00 Blood Pressure 107/56 12/28/16 16:00 Pulse Oximetry 96 12/28/16 16:00 Height/Weight/BMI: Height 1.78 m Weight 67.6 kg Body Mass Index 22.7 - Constitutional Present: no acute distress, well nourished, well developed - Routine HEENT Exam Eye: Present: EOMI ENT: Present: mucous membranes moist, dentition normal - Routine Respiratory Exam Present: CTA bilaterally. Absent: wheezes - Routine Cardiovascular Exam Present: RRR. Absent: murmur - Routine Abdominal Exam Present: soft, normoactive bowel sounds, non distended. Absent: tenderness - Routine Extremities Exam Present: normal capillary refill - Routine Skin Exam Present: intact, dry, warm - Routine Neurological Exam Present: alert, CN II-XII intact, moving all extremities - Routine Lymphatic Exam Lymphatic: Absent: adenopathy - Routine Psychiatric Exam Present: normal affect, cooperative Results - Labs CBC & Chem 7: 12/27/16 04:10 12/23/16 04:35 Assessment and Plan (1) Acute blood loss anemia Current visit: Yes Status: Acute Assessment and Plan: Assessment Anemia, acute on chronic post-op, present on admission. * History of prior blood transfusions without reactions. Hypocalcemia, acute, present on admission. S/P right hip surgical revision - Dr. Ramiro James, 12/14/16. Vascular dementia, chronic - history of post-op encephalopathy. Hypertension, chronic. Hypercholesterolemia, chronic. Nocturnal hypoxemia requiring supplemental oxygen at 2L, chronic. Peripheral vascular disease, chronic. Coronary artery disease with prior stent placement, chronic. History of TIAs affecting left eye, chronic. GERD, chronic. History of peptic ulcers, chronic. Constipation, chronic. BPH with chronic home self catheterizations History of urinary tract infections. Osteoarthritis, chronic. Allergic rhinitis, chronic. History of seizure disorder - most recent reported seizure was 07/2016. Stable posterior cerebral aneurysm, chronic. Plan In light of acute chest pain stat EKG and Troponin ordered. Will repeat another troponin in 6 hours. Chest pain is currently gone at time of examination. Will check CBC and BMP now. Plavix had been on hold due to anemia. Will resume at this time. Continue to encourage to work with PT/OT for strengthening Case discussed with Dr Villela Hospital Course Summary Disclaimer: The visit summary below is not to be considered part of the above Progress Note. Hospital Course: Assessment Anemia, acute on chronic post-op, present on admission. * History of prior blood transfusions without reactions. Hypocalcemia, acute, present on admission. S/P right hip surgical revision - Dr. Ramiro James, 12/14/16. Vascular dementia, chronic - history of post-op encephalopathy. Hypertension, chronic. Hypercholesterolemia, chronic. Nocturnal hypoxemia requiring supplemental oxygen at 2L, chronic. Peripheral vascular disease, chronic. Coronary artery disease with prior stent placement, chronic. History of TIAs affecting left eye, chronic. GERD, chronic. History of peptic ulcers, chronic. Constipation, chronic. BPH with chronic home self catheterizations - current Ng catheter present. History of urinary tract infections. Osteoarthritis, chronic. Allergic rhinitis, chronic. History of seizure disorder - most recent reported seizure was 07/2016. Stable posterior cerebral aneurysm, chronic. Plan-12/20/16 (Consult). Agree with admission to IRU under the guided care of Dr. Bernal for continued rehabilitation and therapies. Pain control per Dr. Bernal. Continue bowel motivation with senna plus and miralax daily. Hemoglobin on admission was 6.9 (s/p transfusion of 1 unit PRBC prior to arrival ). Repeat CBC revealed slight improvement at 7.6 without additional treatment. Will continue to monitor closely. In light of the patient's history of severe anemia with known CAD and vascular dementia, will type and cross and give 1 unit now. Recheck hemoglobin following transfusion. Patient remains asymptomatic. Will obtain B12, folate and iron for further evaluation given chronic anemia. Continue home medications. Monitor closely for seizure activity and continue to provide safe and supportive environment. [place] [facility] [place] 1mg daily was discontinued during his hospitalization. Will restart his terazosin 1mg daily for hypertension and BPH. Monitor blood pressure closely as it has been elevated since admission with systolic pressures in 170's-180's. History of nocturnal hypoxemia. Will provide oxygen at 2L NC at night and as needed PRN. Would recommend night oximetry evaluation prior to discharge. Encourage incentive spirometry for pulmonary toileting. Chronic thromboprophylaxis with Plavix and ASA given CAD. Monitor closely for signs of bleeding given anemia. Will check fecal hemocele for further evaluation fo anemia as he has required multiple transfusions since surgery. Continue Prilosec for GERD and GI protection. [place] [facility] [place] revealed 5-10 WBC with numerous bacteria. In light of chronic self-catheterizing, expect pyuria is secondary to colonization. Patient remains afebrile without complaints. Will hold off on UA and antibiotic treatment at this time. Monitor closely for signs of infection. Monitor hip incision closely for signs of infection. Daily dressing changes. Removal of stables to hip between 12/21 and 12/[address]i-strips. Patient may shower when wound is no longer draining; no tub baths. Patient to follow up with Dr. James the week on 01/16 for post-op evaluation. Upon discharge, patient's care will be returned to his PCP, Dr. Fab Vasquez. 12/21/16 --Patient was transfused 1 unit of PRBCs this morning making this his fifth unit of blood since surgery on 12/14/16. His hemoglobin last evening was 7.7 and this morning was 7.2. Following his transfusion this morning it was 8.4. This evening it was up to 9.0. Will recheck again in the a.m. --Nurses have measured circumference of his thigh just above the knee and just below his wound. Will repeat measurements this evening and again in the morning to determine if he could be having bleeding in this area. --Patient was receiving two [place] 10/325 PRN pain. Daughters feel like this is too much for him. Will change this to 1 pill every 6 hours PRN and schedule acetaminophen 500 mg 4 times a day routinely. His pain has been decently controlled. --Remove james tomorrow or the following day. --Overall he is doing very well. He wants to go home. 12/22/16 Hemoglobin is stable. 8.1 this am compared to 7.2 yesterday am. 1 Unit PRBC's given yesterday. Repeat CBC tomorrow am. Based on measurements of the thigh, he's had some decrease in swelling to the upper thigh and an increase in the lower aspect. This could be explained by him being up more with therapy. Remove james tomorrow if wound looks healed. Pain is controlled. 12/23/16 Hemoglobin is stable at 8.1, repeat CBC in a.m. DC Ng catheter. He is independent enough at this point that he can likely go back to self catheterization. Remove james today. Start B12 supplementation for vitamin B12 deficiency. Start B12 1000 g injections daily 7 days then weekly 4 weeks then monthly. Will consult pharmacy to give IV iron given his iron deficiency based on his recent labs. 12/26/16 Hemoglobin is gradually increasing. Overall doing well. No change in treatment plan. 12/28/16 Plan In light of acute chest pain stat EKG and Troponin ordered. Will repeat another troponin in 6 hours. Chest pain is currently gone at time of examination. Will check CBC and BMP now. Plavix had been on hold due to anemia. Will resume at this time. Continue to encourage to work with PT/OT for strengthening Case discussed with Dr Villela <Candie Villela - Last Filed: 12/28/16 22:21> - Date 12/28/16 Objective Vital signs: Temperature 98.4 F 12/28/16 20:35 Pulse Rate 83 12/28/16 20:37 Respiratory Rate 16 12/28/16 20:35 Blood Pressure 135/69 12/28/16 20:37 Pulse Oximetry 98 12/28/16 20:37 Height/Weight/BMI: Height 1.78 m Weight 67 kg Body Mass Index 22.7 Results - Labs CBC & Chem 7: 12/28/16 17:52 12/28/16 17:52 Assessment and Plan (1) Acute blood loss anemia Current visit: Yes Status: Acute Assessment and Plan: 12/28/2016-I reviewed this chart, the patient history, and the [employer]'s/PA's documented findings as above. We discussed and formulated the assessment and plan as above with the additions below.-Dr. Villela I saw the patient in his room prior to supper time. He was accompanied by multiple family members. He stated that the chest pain that he had was short lasting and maybe lasted 1-3 minutes. He was just sitting in a chair resting when he developed the chest pain. It went away on its own before he could ask for any nitroglycerin. He states the chest pain he had was typical for pain he has had in the past. He has not had any chest pain this hospitalization. He states he's been able to do therapy without having any chest pain. He states he is feeling fine and notices no shortness of breath or pain elsewhere. He has been eating and drinking okay. An exam he is alert and in no acute distress. Chest is clear to auscultation. Cardiovascular reveals a regular rate and rhythm. Abdomen is soft and nontender. Extremities are free of edema. On CBC today, white count is normal, hemoglobin is stable at 9.3, platelets are 610 and have been rising. Basic metabolic profile is normal. Initial troponin is negative. EKG revealed no significant ST elevation or depression. Impression and plan Regarding the patient's chest pain, he has been on aspirin daily. He had difficulties with anemia requiring several transfusions in the acute hospital and inpatient rehabilitation. Plavix and anticoagulation had been on hold. Hemoglobin is now stable. Will restart Plavix along with his usual aspirin daily. I've asked the patient to notify the nurse if he should have any further chest discomfort, and he stated that he would. Hospital Course Summary Disclaimer: The visit summary below is not to be considered part of the above Progress Note.
[2016-12-28 19:52] VITALS: RESP 16
[2016-12-28] MEDS: TERAZOSIN 1 MG CAPSULE PO SCH (20:50)
[2016-12-28] MEDS: FINASTERIDE 5 MG TABLET PO SCH (20:50)
[2016-12-28] MEDS: MIRTAZAPINE 30 MG TABLET PO SCH (20:50)
[2016-12-28] MEDS: ATORVASTATIN 20 MG TABLET PO SCH (20:50)
[2016-12-28] MEDS ORDERED: NITROGLYCERIN 0.4 MG SUBLINGUAL TABLET SL PRN (22:21)
[2016-12-29] MEDS: HYDROCODONE/APAP 10 MG/325 MG TABLET PO PRN ×4 (01:01→14:37)
[2016-12-29] MEDS: OMEPRAZOLE 20 MG CAPSULE PO SCH (05:23)
[2016-12-29] MEDS: LORATADINE 10 MG TABLET PO SCH (05:23)
[2016-12-29] MEDS: LUTEIN 20 MG CAPSULE PO SCH (09:04)
[2016-12-29] MEDS: LACOSAMIDE 100mg TABLET PO SCH (09:04)
[2016-12-29] MEDS: OMEGA-3 ACID ESTERS 1 GM CAPSULE PO SCH (09:04)
[2016-12-29] MEDS: REFRESH CELLUVISC 1% Eye Drops 0.4ml EACH EYE SCH (09:05)
[2016-12-29] MEDS: ACETAMINOPHEN 500 MG TABLET PO SCH (09:06)
[2016-12-29] MEDS: SENNA + DOCUSATE TABLET PO SCH (09:07)
[2016-12-29] MEDS: POLYETHYL GLYCOL 3350 17gm PACKET PO SCH (09:07)
[2016-12-29] MEDS: ASPIRIN *EC* 81 MG TABLET PO SCH (09:07)
[2016-12-29] MEDS: CYANOCOBALAMIN (B-12) 1,000mcg/ml INJECTION IM SCH (10:20)
[2016-12-29] MEDS: CLOPIDOGREL 75 MG TABLET PO SCH (10:20)
--- NOTE | 2016-12-29 14:14 | Discharge Instructions ---
Discharge Plan - Med Rec/Dispo Referrals/Follow Up: Ramiro James MD [Other] (Dr. Amish James on 01/31/17 at 2:15 pm for Post-Op follow-up. [phone]. [id number] [facility], [address] [place] [address]) RADHA VASQUEZ [Family Provider] - (Dr. Wendy Vasquez on 01/03/17 at 1:00 pm for Hosp. follow-up. . [facility] [address] [place] [address]) Additional Instructions: You need to have a CBC checked at your follow up visit with your primary care provider. Prescriptions: New Terazosin [Hytrin] 1 mg PO HS #30 cap Cyanocobalamin (Vitamin B-12) [Vitamin B-12] 1 tab PO DAILY #30 tab Hydrocodone/APAP 10/325 [[place] 10/325] 1 tab PO QID PRN #30 tablet PRN Reason: Pain PEG 3350 17gm PACKET [Miralax] 17 gm PO DAILY packet Continue Loratadine 10 mg PO DAILY #0 Omeprazole 20 mg PO ACB #0 Lutein 20 mg PO DAILY #0 Aspirin [Aspirin EC] 81 mg PO DAILY Lacosamide [Vimpat] 100 mg PO BID [place]-3 Fatty Acids [[place]-3] 1,000 mg PO DAILY Finasteride 5 mg PO HS #0 Fluticasone Propionate (Flonase 50 mcg/actuation Nasal [place]) 2 spray INH PRN PRN #0 PRN Reason: ALLERY SYMPTOMS Atorvastatin [Lipitor] 20 mg PO HS Carboxymethylcellulose [Methocel E 4 M] 3 drops EACH EYE DAILY Clopidogrel [Plavix] 75 mg PO DAILY Cyclobenzaprine [Flexeril] 10 mg PO DAILY PRN PRN Reason: Muscle Spasm Fluticasone [Flovent Diskus 50 mcg] 1 puff INH BID Mirtazapine [Remeron] 30 mg PO HS Discontinued ALPRAZolam [Xanax] 0.5 mg PO BID PRN PRN Reason: Anxiety Discharge Instructions/Outpatient Orders: Provider Discharge Instructions Location: Determined By Patient - Disposition 01 Discharged Home, Self-Care
[2016-12-29 19:33] VITALS: BP 140/82; PULSE 86; TEMP 98.7; O2SAT 95
--- NOTE | 2017-01-01 15:38 | Discharge Summary ---
Discharge Information Date of admission: 12/19/16 20:00 Anticipated date of discharge: 12/29/16 Attending Physician: Maxwell Bernal MD Primary care physician: FAB VASQUEZ Consults: 12/20/16 04:02 Physician Consult [CONS] Routine Consulting Provider: Rachael Pedraza Reason For Exam: medical management Ordering Provider has Notified Under Cutting Machine Operator: No 12/27/16 14:47 Physician Consult [CONS] Routine Consulting Provider: Juan Laurent Reason For Exam: mental capacity, memory assessment Ordering Provider has Notified Under Cutting Machine Operator: Yes 12/28/16 13:53 Doctor [Physician Consult] [CONS] Routine Consulting Provider: Seema Benson Reason For Exam: Review for skilled Ordering Provider has Notified Under Cutting Machine Operator: Yes - Discharge Diagnosis (1) Acute blood loss anemia Status: Acute (2) Hip fracture, right Status: Acute (3) Nocturnal hypoxemia Status: Chronic (4) Hypertension Status: Chronic (5) Partial seizure disorder Status: Chronic (6) Constipation by delayed colonic transit Status: Acute 1. Right hip fracture with subsequent right hip revision ([facility] Dr. Ramiro James) prior to admission 2. Acute blood loss anemia 3. Hypertension 4. Partial seizure disorder 5. Constipation by delayed transit 6. Chronic nocturnal hypoxemia 7. Neurocognitive disorder with reduced memory and evidence of dementia - Laboratory Labs: 12/28/16 17:52 12/28/16 17:52 History of Present Illness HPI: 01/01/17 15:35 Mister Troy is an 86-year-old gentleman who experienced an unexpected fall when he was stepping out of a camper on December 14, 2016. He was transferred to [facility] in [facility] and was seen by Dr. Ramiro James. Patient had a previous right hip procedure done and at this time had a right hip revision performed in [place], [place]. Postoperatively he did have some acute blood loss anemia. While still at [facility], the patient experienced a fall on December 17, 2016. He did have some abrasions but no significant injury was identified. The patient was felt to be stable for transfer and he was admitted to acute inpatient rehabilitation at [facility] on December 20, 2016. It was felt as though he would benefit from physical therapy and occupational therapy as well as close medical management of the following problems: 1. Monitoring of right hip incision to monitor for infection 2. Acute blood loss anemia management 3. Nocturnal hypoxemia 4. Hypertension 5. Partial seizure disorder with most recent seizure being July 2016 6. Constipation 7. Dementia Hospital Course This is a general summary of the patient's hospital course. For more details refer to the complete medical record. Mister Troy was admitted to the acute inpatient rehabilitation unit on December 20, 2016. He was followed throughout the stay by the hospitalist service. His initial hemoglobin upon admission here was 6.9. He did receive a total of 2 units of packed red blood cells, 1 unit on December 20 and 1 unit on December 21. Hemoglobin was monitored subsequently and was felt to be stable. Upon dismissal it is 9.3 g percent. The patient did not experience any episodes of seizure during the stay and his wound appeared to be healing normally. He did have one episode of chest discomfort. Troponins were normal and electrocardiogram was unremarkable. The patient did require multiple verbal cues due to his dementia. However he did cooperate nicely with physical therapy and occupational therapy and did improve as follows: For occupational therapy, eating was independent initially and at the time of dismissal. Grooming was initially standby assistance and ultimately independent functioning. Bathing was minimal assistance and ultimately standby assistance. Upper body dressing was initially standby assistance and ultimately independent functioning. Lower body dressing was contact guard assistance. He used a hematology specialist and does require cues and was able to perform at standby assistance level ultimately. Tub assistance was initially standby assistance and ultimately modified independent functioning. Initially the patient refused tub transfers and ultimately was able to accomplish this with modified independent functioning. Bed/chair/wheelchair was initially contact guard assistance and ultimately modified independent level. He was seen by physical therapy. Bed/chair/wheelchair transfers were initially standby assistance to independent and occasionally standby assistance requiring verbal cues. Car transfers were standby assistance. Ambulatory ability initially was standby assistance with a front-wheeled walker 670 feet. Ultimately he was able to walk 1093 feet with a front-wheeled walker with standby assistance. He was able to climb stairs with standby assistance 12 stairs initially and 20 stairs ultimately. The patient was felt to be stable for dismissal back to home. His family was concerned about taking care of him at home. He was seen by Dr. Juan Laurent, psychiatry. He was noted to have a neurocognitive disorder and Dr. Laurent recommended facility placement. 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 His family also wanted facility placement although the patient did not. Care management worked closely with the family in an effort to find placement for him. Multiple facilities were sought but none were available at this time. Patient's family ultimately decided to take him home and he was dismissed on December 29, 2016. He continues to require verbal cues for safety. He does have safety awareness issues and some impulsiveness. Hospital course: Assessment Anemia, acute on chronic post-op, present on admission. * History of prior blood transfusions without reactions. Hypocalcemia, acute, present on admission. S/P right hip surgical revision - Dr. Ramiro James, 12/14/16. Vascular dementia, chronic - history of post-op encephalopathy. Hypertension, chronic. Hypercholesterolemia, chronic. Nocturnal hypoxemia requiring supplemental oxygen at 2L, chronic. Peripheral vascular disease, chronic. Coronary artery disease with prior stent placement, chronic. History of TIAs affecting left eye, chronic. GERD, chronic. History of peptic ulcers, chronic. Constipation, chronic. BPH with chronic home self catheterizations - current Ng catheter present. History of urinary tract infections. Osteoarthritis, chronic. Allergic rhinitis, chronic. History of seizure disorder - most recent reported seizure was 07/2016. Stable posterior cerebral aneurysm, chronic. Plan-12/20/16 (Consult). Agree with admission to IRU under the guided care of Dr. Bernal for continued rehabilitation and therapies. Pain control per Dr. Bernal. Continue bowel motivation with senna plus and miralax daily. Hemoglobin on admission was 6.9 (s/p transfusion of 1 unit PRBC prior to arrival ). Repeat CBC revealed slight improvement at 7.6 without additional treatment. Will continue to monitor closely. In light of the patient's history of severe anemia with known CAD and vascular dementia, will type and cross and give 1 unit now. Recheck hemoglobin following transfusion. Patient remains asymptomatic. Will obtain B12, folate and iron for further evaluation given chronic anemia. Continue home medications. Monitor closely for seizure activity and continue to provide safe and supportive environment. Review of records from [facility] indicated home terazosin 1mg daily was discontinued during his hospitalization. Will restart his terazosin 1mg daily for hypertension and BPH. Monitor blood pressure closely as it has been elevated since admission with systolic pressures in 170's-180's. History of nocturnal hypoxemia. Will provide oxygen at 2L NC at night and as needed PRN. Would recommend night oximetry evaluation prior to discharge. Encourage incentive spirometry for pulmonary toileting. Chronic thromboprophylaxis with Plavix and ASA given CAD. Monitor closely for signs of bleeding given anemia. Will check fecal hemocele for further evaluation fo anemia as he has required multiple transfusions since surgery. Continue Prilosec for GERD and GI protection. UA results from admission to [facility] on 12/14 revealed 5-10 WBC with numerous bacteria. In light of chronic self-catheterizing, expect pyuria is secondary to colonization. Patient remains afebrile without complaints. Will hold off on UA and antibiotic treatment at this time. Monitor closely for signs of infection. Monitor hip incision closely for signs of infection. Daily dressing changes. Removal of stables to hip between 12/21 and 12/[address]i-strips. Patient may shower when wound is no longer draining; no tub baths. Patient to follow up with Dr. James the week on 01/16 for post-op evaluation. Upon discharge, patient's care will be returned to his PCP, Dr. Fab Vasquez. 12/21/16 --Patient was transfused 1 unit of PRBCs this morning making this his fifth unit of blood since surgery on 12/14/16. His hemoglobin last evening was 7.7 and this morning was 7.2. Following his transfusion this morning it was 8.4. This evening it was up to 9.0. Will recheck again in the a.m. --Nurses have measured circumference of his thigh just above the knee and just below his wound. Will repeat measurements this evening and again in the morning to determine if he could be having bleeding in this area. --Patient was receiving two Royal 10/325 PRN pain. Daughters feel like this is too much for him. Will change this to 1 pill every 6 hours PRN and schedule acetaminophen 500 mg 4 times a day routinely. His pain has been decently controlled. --Remove james tomorrow or the following day. --Overall he is doing very well. He wants to go home. 12/22/16 Hemoglobin is stable. 8.1 this am compared to 7.2 yesterday am. 1 Unit PRBC's given yesterday. Repeat CBC tomorrow am. Based on measurements of the thigh, he's had some decrease in swelling to the upper thigh and an increase in the lower aspect. This could be explained by him being up more with therapy. Remove james tomorrow if wound looks healed. Pain is controlled. 12/23/16 Hemoglobin is stable at 8.1, repeat CBC in a.m. DC Ng catheter. He is independent enough at this point that he can likely go back to self catheterization. Remove james today. Start B12 supplementation for vitamin B12 deficiency. Start B12 1000 g injections daily 7 days then weekly 4 weeks then monthly. Will consult pharmacy to give IV iron given his iron deficiency based on his recent labs. 12/26/16 Hemoglobin is gradually increasing. Overall doing well. No change in treatment plan. 12/28/16 Plan In light of acute chest pain stat EKG and Troponin ordered. Will repeat another troponin in 6 hours. Chest pain is currently gone at time of examination. Will check CBC and BMP now. Plavix had been on hold due to anemia. Will resume at this time. Continue to encourage to work with PT/OT for strengthening Case discussed with Dr Villela Time spent with patient: 25 - 35 minutes Discharge Plan - Med Rec/Dispo Referrals/Follow Up: Ramiro James MD [Other] (Dr. Amish James on 01/31/17 at 2:15 pm for Post-Op follow-up. [phone]. [id number] [facility], [facility] [address] [place] [address]) FAB VASQUEZ [Family Provider] - (Dr. Wendy Vasquez on 01/03/17 at 1:00 pm for Hosp. follow-up. . [facility] [address] [place] [address]) Additional Instructions: You need to have a CBC checked at your follow up visit with your primary care provider. Prescriptions: New Terazosin [Hytrin] 1 mg PO HS #30 cap Cyanocobalamin (Vitamin B-12) [Vitamin B-12] 1 tab PO DAILY #30 tab Hydrocodone/APAP 10/325 [Royal 10/325] 1 tab PO QID PRN #30 tablet PRN Reason: Pain PEG 3350 17gm PACKET [Miralax] 17 gm PO DAILY packet Continue Loratadine 10 mg PO DAILY #0 Omeprazole 20 mg PO ACB #0 Lutein 20 mg PO DAILY #0 Aspirin [Aspirin EC] 81 mg PO DAILY Lacosamide [Vimpat] 100 mg PO BID [place]-3 Fatty Acids [[place]-3] 1,000 mg PO DAILY Finasteride 5 mg PO HS #0 Fluticasone Propionate (Flonase 50 mcg/actuation Nasal [place]) 2 spray INH PRN PRN #0 PRN Reason: ALLERY SYMPTOMS Atorvastatin [Lipitor] 20 mg PO HS Carboxymethylcellulose [Methocel E 4 M] 3 drops EACH EYE DAILY Clopidogrel [Plavix] 75 mg PO DAILY Cyclobenzaprine [Flexeril] 10 mg PO DAILY PRN PRN Reason: Muscle Spasm Fluticasone [Flovent Diskus 50 mcg] 1 puff INH BID Mirtazapine [Remeron] 30 mg PO HS Discontinued ALPRAZolam [Xanax] 0.5 mg PO BID PRN PRN Reason: Anxiety Discharge Instructions/Outpatient Orders: Provider Discharge Instructions Location: Determined By Patient - Disposition [address] [place] [address]
== END 2016-12-29 17:42 | disposition home health service (06) | DRG 560 ==
PROVIDERS: ADMIT Internal Medicine; ATTEND Internal Medicine